=== PATIENT | female | born 1955 | race Caucasian/White ===

== ENCOUNTER 2017-03-23 14:34 | Emergency (ER) | payer MEDICARE ==
[2017-03-23 16:59] LABS: Hematocrit 41 % (35-47); Hemoglobin 13.5 g/dl (12.0-16.0); Mean Corpuscular HGB Conc 33 g/dl (31-36); Mean Corpuscular Hemoglobin 33 pg (27-31); Mean Corpuscular Volume 100 fL (80-97); Mean Platelet Volume 8 um3 (7.4-10.4); Red Cell Distribution Width 13 % (10.5-15); White Blood Count 8.8 10^3/ul (3.5-10.8)
[2017-03-23 17:24] LABS: Troponin I 0.01 ng/mL (<0.04)
--- NOTE | 2017-03-23 18:14 | ED ---
Danielle Fischer Edward, scribed for Alannah Edwards MD on 03/23/17 at 1545 . HPI Chest Pain - HPI Summary HPI Summary: 61 y/o female presents to the ED c/o pain between the shoulder blades starting 2 days ago. The pain is rated at 3/10 now; at its worst two nights ago it was a "50/10". The pain is aggravated with pressure but not with movement. Three days ago the patient states there was R hand pain after she was clippers. There was also mild CP this morning. Associated sx:. PMHx HLD and endocarditis. FHx HLD, no ID's before 55. Lives with partner. No EtOH, former smoker (quit 3 years ago) . - History of Current Complaint Chief Complaint: EDChestPainROMI Time Seen by Provider: 03/23/17 15:38 Hx Obtained From: Patient Onset/Duration: Started Days Ago - 2 days ago, Still Present Initial Severity: Severe Current Severity: Mild Pain Intensity: 2 Pain Scale Used: 0-10 Numeric Aggravating Factor(s): Other: - Pressure Associated Signs and Symptoms: Positive: Chest Pain - Mild, Other: - Pain between shoulders, pain in R hand - Allergy/Home Medications Allergies/Adverse Reactions: Allergies Allergy/AdvReac Type Severity Reaction Status Date / Time Codeine Allergy Unknown Verified 11/02/15 14:21 Reaction Details Diazepam [From Valium] Allergy Unknown Verified 11/02/15 14:21 Reaction Details Prednisone Allergy Unknown Verified 11/02/15 14:21 Reaction Details Propoxyphene [From Darvon] Allergy Unknown Verified 11/02/15 14:21 Reaction Details PMH/Surg Hx/FS Hx/Imm Hx Previously Healthy: No Endocrine/Hematology History: Reports: Other Endocrine/Hematological Disorders - HLD Cardiovascular History: Reports: Other Cardiovascular Problems/Disorders - Endocarditis Infectious Disease History: Denies: Traveled Outside the [place] in Last 30 Days - Family History Known Family History: Positive: Other - HLD Negative: Cardiac Disease - No ID - Social History Lives: With Family Alcohol Use: None Hx Substance Use: No Substance Use Type: Reports: None Hx Tobacco Use: Yes Smoking Status (MU): Former Smoker - Quit 3 years ago Review of Systems Constitutional: Negative Eyes: Negative ENT: Negative Positive: Chest Pain, Other - Pain between shoulder blades Respiratory: Negative Gastrointestinal: Negative Genitourinary: Negative Musculoskeletal: Other - Pain in R hand Skin: Negative Neurological: Negative Psychological: Normal All Other Systems Reviewed And Are Negative: Yes Physical Exam Triage Information Reviewed: Yes Vital Signs On Initial Exam: Initial Vitals Temp Pulse Resp BP Pulse Ox 97.2 F 71 16 156/81 100 03/23/17 15:20 03/23/17 15:20 03/23/17 15:20 03/23/17 15:20 03/23/17 15:20 Vital Signs Reviewed: Yes Appearance: Positive: Well-Appearing, No Pain Distress Skin: Positive: Warm, Skin Color Reflects Adequate Perfusion, Dry Eyes: Positive: EOMI, [place] ENT: Positive: Pharynx normal, TMs normal Neck: Positive: Supple, Nontender Respiratory/Lung Sounds: Positive: Clear to Auscultation, Breath Sounds Present. Negative: Rales, Rhonchi, Wheezes Cardiovascular: Positive: RRR, Other - No gallop. Negative: Murmur, Rub Abdomen Description: Positive: Nontender, Soft, Other: - No rebound. Negative: Distended, Guarding Bowel Sounds: Positive: Present Musculoskeletal: Positive: Strength/ROM Intact. Negative: Edema Left, Edema Right Neurological: Positive: Sensory/Motor Intact, Alert, Oriented to Person Place, Time, CN Intact II-III Psychiatric: Positive: Affect/Mood Appropriate Diagnostics - Vital Signs Vital Signs Temp Pulse Resp BP Pulse Ox 03/23/17 15:20 97.2 F 71 16 156/81 100 - Laboratory Lab Results: Lab Results 03/23/17 03/23/17 03/23/17 Range/Units 16:45 16:45 16:45 WBC 8.8 (3.5-10.8) 10^3/ul RBC 4.10 (4.0-5.4) 10^6/ul Hgb 13.5 (12.0-16.0) g/dl Hct 41 (35-47) % MCV 100 H (80-97) fL MCH 33 H (27-31) pg MCHC 33 (31-36) g/dl RDW 13 (10.5-15) % Plt Count 250 (150-450) 10^3/ul MPV 8 (7.4-10.4) um3 Neut % (Auto) 77.8 (38-83) % Lymph % (Auto) 17.1 L (25-47) % Gray % (Auto) 4.1 (1-9) % Eos % (Auto) 0.4 (0-6) % Baso % (Auto) 0.6 (0-2) % Absolute Neuts (auto) 6.8 (1.5-7.7) 10^3/ul Absolute Lymphs (auto) 1.5 (1.0-4.8) 10^3/ul Absolute Monos (auto) 0.4 (0-0.8) 10^3/ul Absolute Eos (auto) 0 (0-0.6) 10^3/ul Absolute Basos (auto) 0 (0-0.2) 10^3/ul Absolute Nucleated RBC 0.01 10^3/ul Nucleated RBC % 0.1 Sodium Pending Potassium Pending Chloride Pending Carbon Dioxide Pending Anion Gap Pending BUN Pending Creatinine Pending Est GFR ( Amer) Pending Est GFR (Non-Af Amer) Pending BUN/Creatinine Ratio Pending Glucose Pending Lactic Acid 0.7 (0.5-2.0) mmol/L Calcium Pending Total Bilirubin Pending AST Pending ALT Pending Alkaline Phosphatase Pending Troponin I 0.01 (<0.04) ng/mL Total Protein Pending Albumin Pending Globulin Pending Albumin/Globulin Ratio Pending Result Diagrams: 03/23/17 16:45 03/23/17 16:45 Lab Statement: Any lab studies that have been ordered have been reviewed, and results considered in the medical decision making process. - EKG 1 EKG Rhythm: Sinus Rhythm - @ 66 bpm EKG Interpretation: 15:47 - normal EKG Chest Pain Course/Dx - Course Course Of Treatment: 61 yo female with valvular dz, and remote history of endocarditis here with cp radiating to the back since sat, with the worst pain overnight. Pt is awaiting her chemistry for a troponin and her CTA chest /abd/ pelvis. If these are neg she will be discharged home with the diagnosis of cp - Diagnoses Provider Diagnoses: Chest pain Discharge - Discharge Plan Condition: Stable Disposition: OTHER Discharge Disposition Comment: to be determined by Dr. Diaz The documentation as recorded by the Danielle will Edward accurately reflects the service I personally performed and the decisions made by , Alannah Edwards MD.
[2017-03-23 18:43] LABS: Albumin 4.6 g/dL (3.2-5.2); BUN/Creatinine Ratio 15.5 (8-20); Calcium 9.7 mg/dL (8.6-10.3); EGFR African American 65.4 (>60); EGFR Non-African American 50.8 (>60); Globulin 3.1 g/dL (2-4); Total Protein 7.7 g/dL (6.4-8.9)
[2017-03-23 18:44] LABS: Total Bilirubin 0.4 mg/dL (0.2-1.0)
[2017-03-23] MEDS ORDERED: Iodixanol* (CONTRAST) 320 MG/ML 100 ML SDV IV ONE (18:49)
--- NOTE | 2017-03-23 19:20 | RAD ---
INDICATION: Chest pain radiating to back. Evaluate for aortic dissection COMPARISON: CTA chest March 04, 2009 TECHNIQUE: Axial source images were obtained from the thoracic inlet to the symphysis pubis following administration of 100 mL Visipaque [address] angiographic technique was utilized to evaluate for aortic dissection. Coronal and sagittal reconstructed images were acquired. CHEST FINDINGS: Neck/thyroid: The visualized neck to include the thyroid appear normal. Chest wall: There are no acute abnormalities of the bony thorax or chest wall. There is no supraclavicular, infraclavicular, or axillary lymphadenopathy. Lungs : There are no pulmonary masses. There is linear change in the right middle lobe most consistent with atelectasis. The pulmonary interstitium appears normal. There are no endobronchial lesions. Cardiomediastinal structures: The heart is normal in size. There is no pericardial effusion. There is no evidence of thoracic aortic aneurysm or dissection. There is a small ductus diverticulum appearing unchanged from the 2009 examination. There is a normal CT angiographic appearance of the great vessels arising from the arch The pulmonary vessels appear normal. There is no mediastinal or hilar adenopathy. The esophagus appears normal. Pleura : There are no pleural-based masses or effusions. ABDOMINAL/PELVIC FINDINGS: Liver: The liver is normal in size. There are no masses on early arterial phase enhancement. There is no ductal dilatation. Gallbladder: There are no calcified gallstones. There is no evidence of wall thickening or pericholecystic fluid. Spleen: The spleen is normal in size. There are no masses identified on early arterial phase enhancement. Pancreas: There is no evidence of pancreatic mass or ductal dilatation. Adrenal glands: There is no evidence of adrenal mass. Kidneys: The kidneys are normal in size and position. There are prompt nephrograms and there is prompt excretion bilaterally. There are no renal parenchymal masses. There is no evidence of nephrolithiasis. Adenopathy: There is no evidence of adenopathy by size criteria. Fluid collections: There are no free or localized fluid collections. Abdominal aorta: There is no evidence of abdominal aortic aneurysm or dissection. The visceral branches of the aorta appear normal. There are single renal arteries. The iliac vessels are widely patent. There is minor intimal calcifications involving the iliac vessels. GI tract: Noncontrast CT appearance the bowel is unremarkable. There is no evidence of obstruction Pelvic organs: There is presumed hysterectomy. There is no adnexal mass. Bladder: There are no bladder masses. Abdominal and pelvic soft tissues: The extraperitoneal abdominal and pelvic soft tissues appear normal.. Osseous structures: There are no acute osseous findings. IMPRESSION: NO CT ANGIOGRAPHIC ABNORMALITIES.
[2017-03-23 20:15] LABS: Anion Gap 13 mmol/L (2-11); EGFR Non-African American 56.7 (>60); Manual Entry Verification MD; POC CO2 Carbon Dioxide 24 mmol/L (24-29); POC Chloride 104 mmol/L (98-109); POC Glucose 93 mg/dL (70-105); POC Potassium 3.7 mmol/L (3.5-4.9); POC Sodium 141 mmol/L (138-146)
[2017-03-23 21:28] VITALS: BP 151/69
[2017-03-23 22:21] LABS: Potassium 4.2 mmol/L (3.5-5.0)
== END 2017-03-23 21:28 ==
LOC: ED 14:34
DX: R07.9 Chest pain, unspecified (principal); Z87.891 Personal history of nicotine dependence
CPT/HCPCS: 36415; 71275; 74174; 80048; 80053; 83605; 84484; 85025; 93005; 99282; Q9967

== ENCOUNTER 2017-07-22 06:01 | Emergency (ER) | payer MEDICARE ==
[2017-07-22] MEDS ORDERED: NS 0.9% 1000 ML* 1,000 ML IV ONE (06:28)
[2017-07-22 06:52] LABS: Hematocrit 39 % (35-47); Hemoglobin 13.3 g/dl (12.0-16.0); Mean Corpuscular HGB Conc 34 g/dl (31-36); Mean Corpuscular Hemoglobin 33 pg (27-31); Mean Corpuscular Volume 97 fL (80-97); Mean Platelet Volume 8 um3 (7.4-10.4); Red Blood Count 4.01 10^6/ul (4.0-5.4); Red Cell Distribution Width 13 % (10.5-15); White Blood Count 10.4 10^3/ul (3.5-10.8)
[2017-07-22 07:07] LABS: Albumin 4.4 g/dL (3.2-5.2); BUN/Creatinine Ratio 11.2 (8-20); Calcium 10.2 mg/dL (8.6-10.3); EGFR African American 74.7 (>60); EGFR Non-African American 58.1 (>60); Globulin 2.9 g/dL (2-4); Potassium 3.6 mmol/L (3.5-5.0); Total Bilirubin 0.6 mg/dL (0.2-1.0); Total Protein 7.3 g/dL (6.4-8.9)
[2017-07-22] MEDS ORDERED: Ondansetron INJ* 2 MG/ML VIAL IV ONE (07:27)
[2017-07-22] MEDS ORDERED: Pantoprazole IV* 40 MG IV ONE (07:28)
[2017-07-22 07:49] VITALS: BP 111/74
[2017-07-22 08:15] LABS: Urine Bacteria 1+ (Absent); Urine Bilirubin Negative (Negative); Urine Glucose Negative (Negative); Urine Nitrite Negative (Negative)
--- NOTE | 2017-07-22 08:46 | ED ---
Tereso Fischer Benjamin, scribed for Gómez Bradshaw MD on 07/22/17 at 0731 . Abdominal Pain/Female - HPI Summary HPI Summary: 61yo female c/o diffuse abdominal pressure/discomfort and nausea for 3 days. Pt states that she hasnt been eating for 3 days because attempt to eat makes her nauseous. Pt was seen at 4 days ago and was dx with bronchitis there, which she was rxed with abx, but didnt start it yet. Hx of hysterectomy and hernia repair. - History of Current Complaint Chief Complaint: EDAbdPain Stated Complaint: NAUSEA Time Seen by Provider: 07/22/17 07:20 Hx Obtained From: Patient ?: No Onset/Duration: Gradual Onset, Lasting Days - 3 days, Still Present Timing: Constant Severity Initially: Moderate Severity Currently: Moderate Pain Intensity: 10 Pain Scale Used: 0-10 Numeric Location: Diffuse Radiates: No Character: Other: - pressure Aggravating Factor(s): Other: - sitting up Alleviating Factor(s): Nothing Associated Signs and Symptoms: Positive: Decreased Appetite, Nausea Allergies/Adverse Reactions: Allergies Allergy/AdvReac Type Severity Reaction Status Date / Time Codeine Allergy Unknown Verified 07/22/17 06:13 Reaction Details Diazepam [From Valium] Allergy Unknown Verified 07/22/17 06:13 Reaction Details Prednisone Allergy Unknown Verified 07/22/17 06:13 Reaction Details Propoxyphene [From Darvon] Allergy Unknown Verified 07/22/17 06:13 Reaction Details PMH/Surg Hx/FS Hx/Imm Hx Endocrine/Hematology History: Reports: Other Endocrine/Hematological Disorders - HLD Cardiovascular History: Reports: Other Cardiovascular Problems/Disorders - Endocarditis - Immunization History Date of Influenza Vaccine: has not received Infectious Disease History: No Infectious Disease History: Denies: Traveled Outside the US in Last 30 Days - Family History Known Family History: Positive: Other - HLD Negative: Cardiac Disease - No [place] - Social History Alcohol Use: None Hx Substance Use: No Substance Use Type: Reports: None Hx Tobacco Use: Yes Smoking Status (MU): Light Every Day Tobacco Smoker Review of Systems Constitutional: Negative Negative: Fever Eyes: Negative ENT: Negative Cardiovascular: Negative Negative: Chest Pain Respiratory: Negative Negative: Shortness Of Breath Positive: Abdominal Pain - diffuse mild pressure/discomfort, Nausea, Other - decreased appetite Genitourinary: Negative Musculoskeletal: Negative Skin: Negative Neurological: Negative Psychological: Normal All Other Systems Reviewed And Are Negative: Yes Physical Exam - Summary Physical Exam Summary: VITAL SIGNS: Reviewed. GENERAL: Patient is a well-developed and nourished FEMALE who is lying comfortable in the stretcher. Patient is not in any acute respiratory distress. HEAD AND FACE: No signs of trauma. No ecchymosis, hematomas or skull depressions. No sinus tenderness. EYES: PERRLA, EOMI x 2, No injected conjunctiva, no nystagmus. EARS: Hearing grossly intact. Ear canals and tympanic membranes are within normal limits. MOUTH: Oropharynx within normal limits. NECK: Supple, trachea is midline, no adenopathy, no JVD, no carotid bruit, no c- spine tenderness, neck with full ROM. CHEST: Symmetric, no tenderness at palpation LUNGS: Clear to auscultation bilaterally. No wheezing or crackles. CVS: Regular rate and rhythm, S1 and S2 present, no murmurs or gallops appreciated. ABDOMEN: Soft, non-tender. No signs of distention. No rebound no guarding, and no masses palpated. Bowel sounds are normal. EXTREMITIES: FROM in all major joints, no edema, no cyanosis or clubbing. NEURO: Alert and oriented x 3. No acute neurological deficits. Speech is normal and follows commands. SKIN: Dry and warm Triage Information Reviewed: Yes Vital Signs On Initial Exam: Initial Vitals Temp Pulse Resp BP Pulse Ox 98.7 F 94 16 142/77 99 07/22/17 06:05 07/22/17 06:05 07/22/17 06:05 07/22/17 06:05 07/22/17 06:05 Vital Signs Reviewed: Yes Diagnostics - Vital Signs Vital Signs Temp Pulse Resp BP Pulse Ox 07/22/17 07:00 69 115/66 97 07/22/17 06:29 82 95 07/22/17 06:25 129/77 07/22/17 06:05 98.7 F 94 16 142/77 99 - Laboratory Lab Results: Lab Results 07/22/17 07/22/17 07/22/17 Range/Units 06:35 06:35 06:35 WBC 10.4 (3.5-10.8) 10^3/ul RBC 4.01 (4.0-5.4) 10^6/ul Hgb 13.3 (12.0-16.0) g/dl Hct 39 (35-47) % MCV 97 (80-97) fL MCH 33 H (27-31) pg MCHC 34 (31-36) g/dl RDW 13 (10.5-15) % Plt Count 281 (150-450) 10^3/ul MPV 8 (7.4-10.4) um3 Neut % (Auto) 84.1 H (38-83) % Lymph % (Auto) 11.5 L (25-47) % Meagher % (Auto) 3.3 (1-9) % Eos % (Auto) 0.2 (0-6) % Baso % (Auto) 0.9 (0-2) % Absolute Neuts (auto) 8.8 H (1.5-7.7) 10^3/ul Absolute Lymphs (auto) 1.2 (1.0-4.8) 10^3/ul Absolute Monos (auto) 0.3 (0-0.8) 10^3/ul Absolute Eos (auto) 0 (0-0.6) 10^3/ul Absolute Basos (auto) 0.1 (0-0.2) 10^3/ul Absolute Nucleated RBC 0 10^3/ul Nucleated RBC % 0 INR (Anticoag Therapy) 0.94 (0.89-1.11) APTT 30.0 (26.0-36.3) seconds Sodium 138 (133-145) mmol/L Potassium 3.6 (3.5-5.0) mmol/L Chloride 104 (101-111) mmol/L Carbon Dioxide 24 (22-32) mmol/L Anion Gap 10 (2-11) mmol/L BUN 11 (6-24) mg/dL Creatinine 0.98 H (0.51-0.95) mg/dL Est GFR ( Amer) 74.7 (>60) Est GFR (Non-Af Amer) 58.1 (>60) BUN/Creatinine Ratio 11.2 (8-20) Glucose 123 H (70-100) mg/dL Calcium 10.2 (8.6-10.3) mg/dL Total Bilirubin 0.60 (0.2-1.0) mg/dL AST 24 (13-39) U/L ALT 20 (7-52) U/L Alkaline Phosphatase 48 (34-104) U/L Troponin I 0.00 (<0.04) ng/mL Total Protein 7.3 (6.4-8.9) g/dL Albumin 4.4 (3.2-5.2) g/dL Globulin 2.9 (2-4) g/dL Albumin/Globulin Ratio 1.5 (1-3) Lipase 15 (11.0-82.0) U/L Result Diagrams: 07/22/17 06:35 07/22/17 06:35 Lab Statement: Any lab studies that have been ordered have been reviewed, and results considered in the medical decision making process. Abdominal Pain Fem Course/Dx - Course Course Of Treatment: 61yo female c/o diffuse abdominal pressure/discomfort and nausea for 3 days. Pt states that she hasnt been eating for 3 days because attempt to eat makes her nauseous. Pt was seen at 4 days ago and was dx with bronchitis there, which she was rxed with abx, but didnt start it yet. Hx of hysterectomy and hernia repair. Pt has an unremarkable exam and blood work. Pt most likely has a viral illness and will treat her symptomatically. - Diagnoses Provider Diagnoses: Nausea, Viral syndrome Discharge - Discharge Plan Condition: Stable Disposition: HOME Prescriptions: Metoclopramide TAB* [Reglan TAB*] 10 mg PO Q6H PRN #20 tab PRN Reason: Nausea/Vomiting Patient Education Materials: Acute Nausea and Vomiting (ED), Viral Syndrome (ED ) Referrals: Peyman Giang MD [Primary Care Provider] - (Please follow up with your doctor in 1-3 days. ) Additional Instructions: Increased oral fluid intake. Home rest until your symptoms resolve. The documentation as recorded by the Tereso will Benjamin accurately reflects the service I personally performed and the decisions made by me, Gómez Bradshaw MD.
== END 2017-07-22 08:29 | disposition home or self-care (01) ==
LOC: ED 06:01
DX: B34.9 Viral infection, unspecified (principal); R11.0 Nausea
CPT/HCPCS: 36415; 80053; 81003; 81015; 83690; 84484; 85025; 85610; 85730; 87086; 96374; 96375; 99282; J2405

== ENCOUNTER 2017-09-01 09:31 | Emergency (ER) | payer MEDICARE ==
[2017-09-01] MEDS ORDERED: Ondansetron ODT TAB* 4 MG PO ONE (09:49)
[2017-09-01] MEDS ORDERED: DOXYcycline CAP(*) 100 MG PO ONE (09:49)
[2017-09-01 10:10] LABS: ABS Basophils 0.1 10^3/ul (0-0.2); ABS Eosinophils 0.1 10^3/ul (0-0.6); ABS Lymphocytes 1.2 10^3/ul (1.0-4.8); ABS Monocytes 0.3 10^3/ul (0-0.8); ABS Neutrophils 4.2 10^3/ul (1.5-7.7); ABS Nucleated RBC 0 10^3/ul; Eosinophil % 1.5 % (0-6); Hematocrit 40 % (35-47); Hemoglobin 13.7 g/dl (12.0-16.0); Lymphocyte % 20.7 % (25-47); Mean Corpuscular HGB Conc 34 g/dl (31-36); Mean Corpuscular Hemoglobin 34 pg (27-31); Mean Corpuscular Volume 98 fL (80-97); Mean Platelet Volume 8 um3 (7.4-10.4); Nucleated Red Blood Cells % 0; Platelet Count 276 10^3/ul (150-450); Red Blood Count 4.08 10^6/ul (4.0-5.4); Red Cell Distribution Width 13 % (10.5-15); White Blood Count 5.8 10^3/ul (3.5-10.8)
[2017-09-01 10:22] LABS: EGFR Non-African American 60.7 (>60)
--- NOTE | 2017-09-01 10:36 | ED ---
Liu Fischer Angela, scribed for Adolph Camarillo MD on 09/01/17 at 0950 . Skin Complaint - HPI Summary HPI Summary: This pt is a 62 y/o female presenting [facility] c/o erythematous and raised areas on the left calf. Pt reports that 2 days ago she was sitting down when "something" bit her. She notes these areas were pruritic all night. Today pt c/ o pruritic erythematous areas and pain, generalized weakness. Pt went to see her PCP at [facility] and was given Augmentin and mupirocin ointment 2% with no relief. Allergies include to prednisone and valium. - History of Current Complaint Chief Complaint: EDGeneral Stated Complaint: BUG BITE ON LEG Hx Obtained From: Patient Onset/Duration: Started Days Ago, Still Present Skin Exposure Onset/Duration: Days Ago Timing: Lasting Days Current Severity: Moderate Pain Intensity: 6 Pain Scale Used: 0-10 Numeric Skin Location: Leg - left Character: Swelling, Pruritus, Pain, Redness, Painful Aggravating Symptom(s): Nothing Alleviating Symptom(s): Nothing Associated Signs & Symptoms: Tenderness - Allergy/Home Medications Allergies/Adverse Reactions: Allergies Allergy/AdvReac Type Severity Reaction Status Date / Time Codeine Allergy Unknown Verified 07/22/17 06:13 Reaction Details Diazepam [From Valium] Allergy Unknown Verified 07/22/17 06:13 Reaction Details Prednisone Allergy Unknown Verified 07/22/17 06:13 Reaction Details Propoxyphene [From Darvon] Allergy Unknown Verified 07/22/17 06:13 Reaction Details PMH/Surg Hx/FS Hx/Imm Hx Endocrine/Hematology History: Reports: Other Endocrine/Hematological Disorders - HLD Cardiovascular History: Reports: Other Cardiovascular Problems/Disorders - Endocarditis - Immunization History Date of Influenza Vaccine: has not received Infectious Disease History: No Infectious Disease History: Denies: Traveled Outside the US in Last 30 Days - Family History Known Family History: Positive: Other - HLD Negative: Cardiac Disease - No [place] - Social History Alcohol Use: None Hx Substance Use: No Substance Use Type: Reports: None Hx Tobacco Use: Yes Smoking Status (MU): Light Every Day Tobacco Smoker Review of Systems Negative: Fever, Chills Skin: Other - erythematous areas Positive: Weakness - generalized All Other Systems Reviewed And Are Negative: Yes Physical Exam - Summary Physical Exam Summary: Appearance: Well-appearing, Well-nourished. No acute distress. Skin: Warm. 3 distinct round areas of induration with surrounding erythema. Mild tenderness to palpation. No petechiae. Eyes: Normal ENT: Normal. Moist mucous membranes. Neck: Supple, nontender Respiratory: Clear to auscultation Cardiovascular: Normal Abdomen: Soft, nontender Bowel: Present Musculoskeletal: Normal, Strength/ROM Intact. Normal ROM. Normal strength and sensation in LE bilaterally. Distal neurovascular intact. No calf tenderness. Neurological: Normal, A&Ox3 Psychiatric: Normal Triage Information Reviewed: Yes Vital Signs On Initial Exam: Initial Vitals Temp Pulse Resp BP Pulse Ox 98.9 F 124 18 123/84 97 09/01/17 09:33 09/01/17 09:33 09/01/17 09:33 09/01/17 09:33 09/01/17 09:33 Vital Signs Reviewed: Yes Diagnostics - Vital Signs Vital Signs Temp Pulse Resp BP Pulse Ox 09/01/17 09:33 98.9 F 124 18 123/84 97 - Laboratory Lab Results: Lab Results 09/01/17 09/01/17 Range/Units 10:00 10:00 WBC 5.8 (3.5-10.8) 10^3/ul RBC 4.08 (4.0-5.4) 10^6/ul Hgb 13.7 (12.0-16.0) g/dl Hct 40 (35-47) % MCV 98 H (80-97) fL MCH 34 H (27-31) pg MCHC 34 (31-36) g/dl RDW 13 (10.5-15) % Plt Count 276 (150-450) 10^3/ul MPV 8 (7.4-10.4) um3 Neut % (Auto) 71.7 (38-83) % Lymph % (Auto) 20.7 L (25-47) % [place]oup % (Auto) 4.8 (1-9) % Eos % (Auto) 1.5 (0-6) % Baso % (Auto) 1.3 (0-2) % Absolute Neuts (auto) 4.2 (1.5-7.7) 10^3/ul Absolute Lymphs (auto) 1.2 (1.0-4.8) 10^3/ul Absolute Monos (auto) 0.3 (0-0.8) 10^3/ul Absolute Eos (auto) 0.1 (0-0.6) 10^3/ul Absolute Basos (auto) 0.1 (0-0.2) 10^3/ul Absolute Nucleated RBC 0 10^3/ul Nucleated RBC % 0 Sodium 138 (133-145) mmol/L Potassium 3.8 (3.5-5.0) mmol/L Chloride 104 (101-111) mmol/L Carbon Dioxide 27 (22-32) mmol/L Anion Gap 7 (2-11) mmol/L BUN 13 (6-24) mg/dL Creatinine 0.94 (0.51-0.95) mg/dL Est GFR ( Amer) 78.1 (>60) Est GFR (Non-Af Amer) 60.7 (>60) BUN/Creatinine Ratio 13.8 (8-20) Glucose 152 H (70-100) mg/dL Calcium 10.1 (8.6-10.3) mg/dL Result Diagrams: 09/01/17 10:00 09/01/17 10:00 Lab Statement: Any lab studies that have been ordered have been reviewed, and results considered in the medical decision making process. Course/Dx - Course Assessment/Plan: in no acute distress, h+p consistnet with likely mild cellulitis after insect bite/rash. prescribed alternative antibiotic as pt is not tolerating augmentin as prescribed by pmd. I also prescribed zofran to help med tolerance. agrees to and understnads dc instructions. - Diagnoses Provider Diagnoses: Cellulitis Discharge - Discharge Plan Condition: Stable Disposition: HOME Prescriptions: DOXYcycline CAP(*) [DOXYcycline 100MG CAP(*)] 100 mg PO BID #14 cap Ondansetron ODT TAB* [Zofran 4 MG Odt TAB*] 4 mg PO Q6H PRN #12 tab.odt PRN Reason: Nausea Referrals: Peyman Giang MD [Primary Care Provider] - Additional Instructions: PLEASE TAKE MEDICATIONS DIRECTED. PLEASE RETURN IMMEDIATELY TO THE ER IF YOU HAVE ANY WORSENING OR CONCERNING SYMPTOMS PLEASE MAKE AN APPOINTMENT TO BE SEEN BY YOUR PRIMARY CARE DOCTOR WITHIN 1 WEEK The documentation as recorded by the Liu will Angela accurately reflects the service I personally performed and the decisions made by me, Adolph Camarillo MD.
[2017-09-01 11:01] VITALS: BP 127/90
== END 2017-09-01 10:59 | disposition home or self-care (01) ==
LOC: ED 09:31
DX: L03.116 Cellulitis of left lower limb (principal); F17.200 Nicotine dependence, unspecified, uncomplicated; Z88.5 Allergy status to narcotic agent; Z88.8 Allergy status to other drugs, medicaments and biological substances
CPT/HCPCS: 36415; 80048; 85025; 99282; A9270-GY

== ENCOUNTER 2017-11-06 10:01 | Emergency (ER) | payer MEDICARE ==
[2017-11-06] MEDS ORDERED: Ketorolac INJ* 30 MG/ML 1 ML VIAL IV ONE (12:18)
--- NOTE | 2017-11-06 12:44 | RAD ---
INDICATION: Interscapular pain. COMPARISON: Comparison is made with a prior chest x-ray study from March 04, 2009. TECHNIQUE: A portable view of the chest was obtained. FINDINGS: The heart is within normal limits in size. The thoracic aorta appears mildly tortuous and ectatic. There is no change from the prior study. The lungs are clear. No pleural effusion or pneumothorax is seen. IMPRESSION: NO EVIDENCE FOR ACUTE DISEASE.
[2017-11-06 13:08] LABS: INR 0.92 (0.77-1.02)
[2017-11-06 13:09] LABS: ABS Basophils 0 10^3/ul (0-0.2); ABS Eosinophils 0 10^3/ul (0-0.6); ABS Lymphocytes 1.3 10^3/ul (1.0-4.8); ABS Monocytes 0.2 10^3/ul (0-0.8); ABS Neutrophils 4.7 10^3/ul (1.5-7.7); ABS Nucleated RBC 0 10^3/ul; Eosinophil % 0.2 % (0-6); Hematocrit 41 % (35-47); Hemoglobin 14.1 g/dl (12.0-16.0); Lymphocyte % 20.1 % (25-47); Mean Corpuscular HGB Conc 35 g/dl (31-36); Mean Corpuscular Hemoglobin 33 pg (27-31); Mean Corpuscular Volume 97 fL (80-97); Mean Platelet Volume 8 um3 (7.4-10.4); Nucleated Red Blood Cells % 0.1; Platelet Count 271 10^3/ul (150-450); Red Blood Count 4.21 10^6/ul (4.0-5.4); Red Cell Distribution Width 13 % (10.5-15); White Blood Count 6.2 10^3/ul (3.5-10.8)
[2017-11-06 13:15] LABS: EGFR Non-African American 65.5 (>60)
--- NOTE | 2017-11-06 13:25 | RAD ---
Indication: Rheumatoid arthritis, intrascapular numbness and pain. CT of the thoracic spine was obtained in the axial plane. Sagittal and coronal reconstructed images were obtained. There is a predominantly levoscoliosis centered at T5. Otherwise the vertebral bodies appear normal in height. Disc spaces all well-preserved. No obvious protrusion is noted. No fracture is noted. No evidence of spinal canal compromise is noted. No rib fractures are noted. The visualized lung rangel are grossly unremarkable. IMPRESSION: Levoscoliosis centered at T5. No fracture or abnormal erosions are noted in the thoracic spine. No spinal canal compromise is noted.
--- NOTE | 2017-11-06 13:26 | RAD ---
INDICATION: Interscapular pain numbness left leg, history of rheumatoid arthritis. COMPARISON: Correlation is made with a prior MRI of the cervical spine from August 04, 2005. TECHNIQUE: Contiguous axial sections were obtained from the skull base through the T2 vertebra. Images were reconstructed in the sagittal and coronal planes. FINDINGS: There is straightening and reversal of the normal cervical lordosis. In addition there is a cervical scoliosis convex toward the right side. No prevertebral soft tissue swelling or fracture is seen. 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 At the C3-C4 level there is disc space narrowing and mild posterior uncinate process spurring. There are hypertrophic changes within the left facet joint. There is mild canal narrowing is present. There is mild to moderate neural foraminal narrowing on the left side. At the C4-C5 level there is mild posterior uncinate process spurring. There is moderate spinal canal narrowing and mild bilateral neural foraminal narrowing. At the C5-C6 level there is mild to moderate posterior uncinate process spurring. There is moderate spinal canal narrowing and moderate bilateral neural foraminal narrowing. At the C6-C7 level there is mild posterior uncinate process spurring. There is mild to moderate spinal canal narrowing and moderate neural foraminal narrowing on the right side and mild neural foraminal narrowing on the left side. Images of the lung apices demonstrate mild to moderate centrilobular emphysematous change. IMPRESSION: 1. STRAIGHTENING AND REVERSAL OF THE NORMAL CERVICAL LORDOSIS. 2. MODERATE CERVICAL SPONDYLOSIS. IF THE PATIENT'S SYMPTOMS PERSIST CONSIDER MR IMAGING FOR FURTHER EVALUATION.
--- NOTE | 2017-11-06 13:30 | RAD ---
Indication: Back pain. Left leg numbness. CT of the lumbar spine was obtained in the axial plane. Sagittal and coronal reconstructed images were obtained. The vertebral bodies appear normal in height. No compression fracture is noted. At L5-S1 there is minimal broad-based protrusion flattening the thecal sac. Mild facet arthropathy is noted. No central foraminal stenosis is noted. At L4-L5 there is degenerative disc disease with broad-based protrusion flattening the thecal sac. No foraminal stenosis is noted. At L1-L2, L2-L3 and L3-L4 the disc is preserved in height and signal. No retroperitoneal lymphadenopathy is noted. IMPRESSION: At L4-L5 broad-based protrusion flattens the thecal sac. Moderate facet and ligamentous hypertrophy is noted. Minimal degenerative disc disease at L5-S1.
[2017-11-06 14:23] VITALS: BP 154/84
--- NOTE | 2017-11-07 05:19 | ED ---
Jazmine Fischer Jason, scribed for Bailey Barnes MD on 11/06/17 at 1021 . Neck Pain - HPI Summary HPI Summary: This patient is a 62 year old F presenting to [facility] with a chief complaint of burning neck pain since last night. The patient states for the last 2 days my shoulder blade has been hurting and I began to experience burning neck pain. My left leg goes to sleep and feels funny at times too. At home I cant sit on my recliner due to my shoulder blade pain. Every once in a while I will get a dizzy spell and it will go away. The pt has a history of rheumatoid arthritis, HLD, and endocarditis. The patient rates the pain 9/10 in severity. Symptoms aggravated by nothing. Symptoms alleviated by nothing. Patient reports headache , and posterior left leg numbness. Patient denies CP, SOB, and visual symptoms. Patient takes Lipitor for HLD and admits to "smoking tobacco regularly." Dr. Giang is her primary care provider and Dr. Temple is her Glassie. - History of Current Complaint Chief Complaint: EDNeckComplaint Stated Complaint: LT LEG PAIN Time Seen by Provider: 11/06/17 10:13 Hx Obtained From: Patient Onset/Duration Of Injury/Symptoms: Days - 2 Mechanism Of Injury: No Known Trauma Timing: Constant Onset/Duration: Gradual Onset, Started days ago - since last night, Still Present Severity Initially: Moderate Severity Currently: Severe Pain Intensity: 9 Pain Scale Used: 0-10 Numeric Location: Discrete At: - interscapular and base of neck; also left leg numbness from buttock to post left knee Character: Burning, Other: - numbness left knee Aggravating Factors: Nothing Alleviating Factors: Nothing Associated Signs & Symptoms: Positive: Negative Related History: Other - hx rheumatoid arthritis on no regular medication including tylenol or ibuprofen - Allergies/Home Medications Allergies/Adverse Reactions: Allergies Allergy/AdvReac Type Severity Reaction Status Date / Time codeine Allergy Unknown Verified 11/06/17 10:07 Reaction Details diazepam [From Valium] Allergy Unknown Verified 11/06/17 10:07 Reaction Details prednisone Allergy Unknown Verified 11/06/17 10:07 Reaction Details propoxyphene [From Darvon] Allergy Unknown Verified 11/06/17 10:07 Reaction Details PMH/Surg Hx/FS Hx/Imm Hx Previously Healthy: No Cardiovascular History: Reports: Hx Hypercholesterolemia, Other Cardiovascular Problems/Disorders - Endocarditis as a teenager Musculoskeletal History: Reports: Hx Rheumatoid Arthritis - Immunization History Date of Influenza Vaccine: has not received Infectious Disease History: No Infectious Disease History: Denies: Traveled Outside the [place] in Last 30 Days - Family History Known Family History: Positive: Other - HLD Negative: Cardiac Disease - No [place] - Social History Lives: Alone Alcohol Use: None Hx Substance Use: No Substance Use Type: Reports: None Hx Tobacco Use: Yes Smoking Status (MU): Light Every Day Tobacco Smoker Review of Systems Constitutional: Negative Eyes: Negative - visual sx Negative: Chest Pain Negative: Shortness Of Breath Positive: Arthralgia, Other - Burning neck pain, shoulder blade pain Skin: Negative Positive: Headache, Numbness - left leg Psychological: Normal All Other Systems Reviewed And Are Negative: Yes Physical Exam - Summary Physical Exam Summary: Appearance: well-appearing, moderate pain distress, Well-nourished Skin: Warm, color reflects adequate perfusion Head: Normal Head/Face inspection Eyes: Conjunctiva clear ENT: Normal inspection Neck: Supple, no nodes, no JVD, tender lower C-spine to mid thoracic ( interscapular) spinous and paraspinous. No meningismus. Respiratory: Lungs clear, Normal breath sounds, no respiratory distress Cardio: RRR, No murmur, pulses normal, brisk capillary refill Abdomen: soft, nontender Bowel sounds: present Musculoskeletal: Strength Intact/ ROM intact. No calf tenderness. No edema. Indicates pain from lower neck to upper thoracic area, interscapular. Psychological: Normal Neuro Exam:A&O x3, CN II-XII intact, Motor function 5/5, Sensation intact, Knee and ankle reflexes 2+ symmetric, Triage Information Reviewed: Yes Vital Signs On Initial Exam: Initial Vitals Temp Pulse Resp BP Pulse Ox 98.6 F 102 14 159/89 98 11/06/17 10:07 11/06/17 10:07 11/06/17 10:07 11/06/17 10:07 11/06/17 10:07 Vital Signs Reviewed: Yes Diagnostics - Vital Signs Vital Signs Temp Pulse Resp BP Pulse Ox 11/06/17 10:07 98.6 F 102 14 159/89 98 - Laboratory Lab Results: Lab Results 11/06/17 11/06/17 11/06/17 Range/Units 12:35 12:35 12:35 WBC 6.2 (3.5-10.8) 10^3/ul RBC 4.21 (4.0-5.4) 10^6/ul Hgb 14.1 (12.0-16.0) g/dl Hct 41 (35-47) % MCV 97 (80-97) fL MCH 33 H (27-31) pg MCHC 35 (31-36) g/dl RDW 13 (10.5-15) % Plt Count 271 (150-450) 10^3/ul MPV 8 (7.4-10.4) um3 Neut % (Auto) 75.5 (38-83) % Lymph % (Auto) 20.1 L (25-47) % [place] % (Auto) 3.6 (0-7) % Eos % (Auto) 0.2 (0-6) % Baso % (Auto) 0.6 (0-2) % Absolute Neuts (auto) 4.7 (1.5-7.7) 10^3/ul Absolute Lymphs (auto) 1.3 (1.0-4.8) 10^3/ul Absolute Monos (auto) 0.2 (0-0.8) 10^3/ul Absolute Eos (auto) 0 (0-0.6) 10^3/ul Absolute Basos (auto) 0 (0-0.2) 10^3/ul Absolute Nucleated RBC 0 10^3/ul Nucleated RBC % 0.1 INR (Anticoag Therapy) (0.77-1.02) D-Dimer, Quantitative (Less Than 230) ng/mL Sodium 140 (133-145) mmol/L Potassium 4.1 (3.5-5.0) mmol/L Chloride 105 (101-111) mmol/L Carbon Dioxide 26 (22-32) mmol/L Anion Gap 9 (2-11) mmol/L BUN 12 (6-24) mg/dL Creatinine 0.88 (0.51-0.95) mg/dL Est GFR ( Amer) 84.3 (>60) Est GFR (Non-Af Amer) 65.5 (>60) BUN/Creatinine Ratio 13.6 (8-20) Glucose 100 (70-100) mg/dL Calcium 10.5 H (8.6-10.3) mg/dL Magnesium 2.0 (1.9-2.7) mg/dL Total Bilirubin 0.50 (0.2-1.0) mg/dL AST 19 (13-39) U/L ALT 15 (7-52) U/L Alkaline Phosphatase 51 (34-104) U/L Total Creatine Kinase 44 (10-223) U/L CK-MB (CK-2) 1.0 (0.6-6.3) ng/mL Troponin I 0.01 (<0.04) ng/mL B-Natriuretic Peptide 25 ( - 100) pg/mL Total Protein 8.3 (6.4-8.9) g/dL Albumin 5.0 (3.2-5.2) g/dL Globulin 3.3 (2-4) g/dL Albumin/Globulin Ratio 1.5 (1-3) /16/18 Range/Units 12:35 WBC (3.5-10.8) 10^3/ul RBC (4.0-5.4) 10^6/ul Hgb (12.0-16.0) g/dl Hct (35-47) % MCV (80-97) fL MCH (27-31) pg MCHC (31-36) g/dl RDW (10.5-15) % Plt Count (150-450) 10^3/ul MPV (7.4-10.4) um3 Neut % (Auto) (38-83) % Lymph % (Auto) (25-47) % [place] % (Auto) (0-7) % Eos % (Auto) (0-6) % Baso % (Auto) (0-2) % Absolute Neuts (auto) (1.5-7.7) 10^3/ul Absolute Lymphs (auto) (1.0-4.8) 10^3/ul Absolute Monos (auto) (0-0.8) 10^3/ul Absolute Eos (auto) (0-0.6) 10^3/ul Absolute Basos (auto) (0-0.2) 10^3/ul Absolute Nucleated RBC 10^3/ul Nucleated RBC % INR (Anticoag Therapy) 0.92 (0.77-1.02) D-Dimer, Quantitative < 200 (Less Than 230) ng/mL Sodium (133-145) mmol/L Potassium (3.5-5.0) mmol/L Chloride (101-111) mmol/L Carbon Dioxide (22-32) mmol/L Anion Gap (2-11) mmol/L BUN (6-24) mg/dL Creatinine (0.51-0.95) mg/dL Est GFR ( Amer) (>60) Est GFR (Non-Af Amer) (>60) BUN/Creatinine Ratio (8-20) Glucose (70-100) mg/dL Calcium (8.6-10.3) mg/dL Magnesium (1.9-2.7) mg/dL Total Bilirubin (0.2-1.0) mg/dL AST (13-39) U/L ALT (7-52) U/L Alkaline Phosphatase (34-104) U/L Total Creatine Kinase (10-223) U/L CK-MB (CK-2) (0.6-6.3) ng/mL Troponin I (<0.04) ng/mL B-Natriuretic Peptide ( - 100) pg/mL Total Protein (6.4-8.9) g/dL Albumin (3.2-5.2) g/dL Globulin (2-4) g/dL Albumin/Globulin Ratio (1-3) Result Diagrams: 11/06/17 12:35 11/06/17 12:35 Lab Statement: Any lab studies that have been ordered have been reviewed, and results considered in the medical decision making process. - Radiology CXR Radiology Interpretation Completed By: Radiologist - CXR reveals, per radiologist, NO EVIDENCE FOR ACUTE DISEASE. ED physician has reviewed this radiology report. - CT Thoracic Spine CT Interpretation Completed By: Radiologist - Thoracic Spine CT reveals, per radiologist, Levoscoliosis centered at T5. No fracture or abnormal erosions are noted in the thoracic spine. No spinal canal compromise is noted. ED physician has reviewed this radiology report. Lumbar Spine CT Interpretation Completed By: Radiologist - Lumbar Spine CT reveals, per radiologist, At L4-L5 broad-based protrusion flattens the thecal sac. Moderate facet and ligamentous hypertrophy is noted. Minimal degenerative disc disease at L5-S1. ED physician has reviewed this radiology report. Cervical Spine CT Interpretation Completed By: Radiologist - Cervical Spine CT reveals, per radiologist, 1. STRAIGHTENING AND REVERSAL OF THE NORMAL CERVICAL LORDOSIS. 2. MODERATE CERVICAL SPONDYLOSIS. IF THE PATIENT'S SYMPTOMS PERSIST CONSIDER MR IMAGING FOR FURTHER EVALUATION. ED physician has reviewed this radiology report. - EKG 1221 Cardiac Rate: NL EKG Rhythm: Sinus Rhythm - [address] Segment: Non-Specific Ectopy: None EKG Interpretation: normal AVIVCT; normal QTc; normal axis. EKG Comparison: No Significant Change - compared with EKG from 03/23/17 Re-Evaluation - Re-Evaluation First Eval Re-Evaluation Time: 12:25 Change: Unchanged Comment: informed pt EKG is normal. Pt has no chest pain or SOB. Second Eval Re-Evaluation Time: 13:35 Change: Improved Comment: Patient's condition is improved after ketorolac IV, and she continues to decline further pain medication. Neck Course/Dx - Course Course Of Treatment: In the ED course the patient was given Toradol with good relief of her discomfort. Pt had labs and EKG and CXR indicating no cardiothoracic origin for pt's interscapular pain. CT's of entire spine, show no fx, no spinal cord compression or spinal canal compromise or cause of pt's pain that needs emergency intervention. Pt advised of L4-L5 protrusion. Pt given copies of her labs and CT reports. Pt is reassured by these findings. Discussed with pt that it is well that she has not required addicting medication for control of rheumatoid arthritis pain, but pt is encouraged that it is OK to take occasional acetaminophen for discomfort. Pt states she was advised not to take NSAIDS in the past because of her stomach. - Diagnoses Differential Dx/HQI/PQRI: Positive: Arthritis, Cervical Fracture, Neoplasm, Sprain, Strain Provider Diagnoses: Rheumatoid arthritis, Acute back pain, Chronic back pain, Protrusion of intervertebral disc of lumbosacral region, Levoscoliosis, Cervical spondylosis Discharge - Discharge Plan Condition: Stable Disposition: HOME Patient Education Materials: Rheumatoid Arthritis (ED), Chronic Back Pain (ED) , Back Pain (ED) Referrals: Peyman Giang MD [Primary Care Provider] - 2 Days Additional Instructions: RETURN TO THE EMERGENCY DEPARTMENT FOR CHANGING OR WORSENING SYMPTOMS. The documentation as recorded by the Jazmine will Jason accurately reflects the service I personally performed and the decisions made by Cameron crowe Barbara J, MD.
== END 2017-11-06 14:22 | disposition home or self-care (01) ==
LOC: ED 10:01
DX: M54.9 Dorsalgia, unspecified (principal); M06.9 Rheumatoid arthritis, unspecified; M51.27 Other intervertebral disc displacement, lumbosacral region; G89.29 Other chronic pain; M41.80 Other forms of scoliosis, site unspecified; M47.9 Spondylosis, unspecified; E78.00 Pure hypercholesterolemia, unspecified; Z88.5 Allergy status to narcotic agent; E78.5 Hyperlipidemia, unspecified; Z72.0 Tobacco use
CPT/HCPCS: 36415; 71045; 72125; 72128; 72131; 80053; 82550; 82553; 83735; 83880; 84484; 85025; 85379; 85610; 93005; 96374; 99283; J1885

== ENCOUNTER 2018-01-15 16:12 | Emergency (ER) | payer MEDICARE ==
[2018-01-15 16:18] VITALS: BP 158/98
--- NOTE | 2018-01-15 16:58 | ED ---
Upper Extremity Pain - HPI Summary HPI Summary: 62-year-old female presents with right shoulder pain for the past 2 and half months. She denies any injury. He states it is under her right shoulder blade. She denies any weakness. She denies any numbness or tingling. He states that it radiates out to the under her axilla. She also has pain on her right shoulder. She states that today she developed some numbness along her lower ribs. She denies chest pain shortness breath. She denies any history of blood clots. She denies recent travel. She has not seen her primary at. She hasn't taking anything for her pain. She has full range of motion of her shoulder. - History of Current Complaint Chief Complaint: EDExtremityUpper Stated Complaint: RT ARM/SHLDR PAIN Time Seen by Provider: 01/15/18 16:52 - Allergies/Home Medications Allergies/Adverse Reactions: Allergies Allergy/AdvReac Type Severity Reaction Status Date / Time codeine Allergy Rash Verified 01/15/18 16:19 diazepam [From Valium] Allergy Slurred Verified 01/15/18 16:19 Speech prednisone Allergy Anaphylatic Verified 01/15/18 16:19 Shock propoxyphene [From Darvon] Allergy Altered Verified 01/15/18 16:19 Mental Status PMH/Surg Hx/FS Hx/Imm Hx Endocrine/Hematology History: Reports: Other Endocrine/Hematological Disorders - HLD Cardiovascular History: Reports: Hx Hypercholesterolemia, Other Cardiovascular Problems/Disorders - Endocarditis as a teenager Musculoskeletal History: Reports: Hx Rheumatoid Arthritis - Immunization History Date of Influenza Vaccine: has not received Infectious Disease History: No Infectious Disease History: Denies: Traveled Outside the [place] in Last 30 Days - Family History Known Family History: Positive: Other - HLD Negative: Cardiac Disease - No [place] - Social History Alcohol Use: None Hx Substance Use: No Substance Use Type: Reports: None Hx Tobacco Use: Yes Smoking Status (MU): Light Every Day Tobacco Smoker Review of Systems Negative: Fever Negative: Chest Pain Negative: Shortness Of Breath Positive: Myalgia - right shoulder pain All Other Systems Reviewed And Are Negative: Yes Physical Exam Triage Information Reviewed: Yes Vital Signs On Initial Exam: Initial Vitals Temp Pulse Resp BP Pulse Ox 98.1 F 111 18 158/98 97 01/15/18 16:15 01/15/18 16:15 01/15/18 16:15 01/15/18 16:15 01/15/18 16:15 Vital Signs Reviewed: Yes Appearance: Positive: Well-Appearing Skin: Positive: Warm, Dry Head/Face: Positive: Normal Head/Face Inspection Eyes: Positive: Normal, Conjunctiva Clear ENT: Positive: Pharynx normal Respiratory/Lung Sounds: Positive: Clear to Auscultation, Breath Sounds Present , Other - nontender chest wall Cardiovascular: Positive: Normal, RRR Musculoskeletal: Positive: Strength/ROM Intact - right shoulder, Other - good pulse, capillary refill<2secs, tenderness right shoulder blade Neurological: Positive: Normal Psychiatric: Positive: Normal Diagnostics - Vital Signs Vital Signs Temp Pulse Resp BP Pulse Ox 01/15/18 16:15 98.1 F 111 18 158/98 97 - Laboratory Lab Statement: Any lab studies that have been ordered have been reviewed, and results considered in the medical decision making process. - Radiology shoulder Xray Interpretation: No Acute Changes Radiology Interpretation Completed By: ED Physician back Xray Interpretation: No Acute Changes - degenerative changes Radiology Interpretation Completed By: ED Physician Course/Dx - Course Course Of Treatment: 62-year-old female presents with right shoulder pain for the past 2 and half months. She denies any injury. He states it is under her right shoulder blade. She denies any weakness. She denies any numbness or tingling. He states that it radiates out to the under her axilla. She also has pain on her right shoulder. She states that today she developed some numbness along her lower ribs. She denies chest pain shortness breath. She denies any history of blood clots. She denies recent travel. She has not seen her primary at. She hasn't taking anything for her pain. She has full range of motion of her shoulder. on exam has full rom shoulder. neurovascular intact. tenderness right side upper back. xray shows degenerative changes. will try muscle relaxer. patient requesting referral for ortho although pain likely from back. patient understand and agrees with plan. - Diagnoses Differential Diagnosis/HQI/PQRI: Positive: Fracture (Closed), Strain, Sprain Provider Diagnoses: Right shoulder pain Discharge - Sign-Out/Discharge Documenting (check all that apply): Discharge/Admit/Transfer - Discharge Plan Condition: Good Disposition: HOME Prescriptions: Cyclobenzaprine TAB* [Flexeril 10 MG TAB*] 10 mg PO TID PRN #21 tab PRN Reason: Pain Patient Education Materials: Shoulder Pain (ED) Referrals: Peyman Giang MD [Primary Care Provider] - Zack Espinal MD [Medical Doctor] - Additional Instructions: Take muscle relaxers three times a day as needed Use ibuprofen or Tylenol for pain every 6 hours ice/heat area, move as much as possible Follow up with primary or can follow up with ortho Return to ED if develop any new or worsening symptoms - Billing Disposition and Condition Condition: GOOD Disposition: HOME
--- NOTE | 2018-01-15 17:57 | RAD ---
Indication: RIGHT shoulder pain. 2 months duration. Comparison: No relevant prior exams available on the [facility] [place] [place] PACS for comparison. Technique: 4 views RIGHT shoulder Report: Negative for fracture. Small bone island at the glenoid. Normal acromioclavicular and glenohumeral joint alignment. Minimal acromioclavicular and glenohumeral joint osteophytosis. Mild glenohumeral joint space narrowing. Negative for stigmata of calcific tendinopathy. Unremarkable soft tissue contours. IMPRESSION: Mild osteoarthritis.
--- NOTE | 2018-01-15 18:00 | RAD ---
Indication: Chronic neck pain RIGHT side Comparison: November 06, 2017 CT. Technique: AP, open-mouth odontoid, lateral, and oblique views cervical spine. Report: Mild kyphosis of the cervical spine without significant facet subluxation at any level. Mild LEFT convex curve at the cervical thoracic junction without significant change. Negative for fracture. Diffuse degenerative spondylosis and facet joint osteoarthritis. Disc space narrowing is severe at C3-C4, C5-C6, and C6-C7. Uncinate process spurring and facet joint osteoarthritis results in significant osseous foraminal stenosis at C5-C6 and C6-C7 on the LEFT and less marked at C5-C6 and C6-C7 on the RIGHT. Unremarkable prevertebral soft tissue contours. IMPRESSION: No traumatic injury of the cervical spine evident. No significant change in multilevel advanced degenerative spondylosis and facet joint osteoarthritis compared with the November 06, 2017 CT.
--- NOTE | 2018-01-15 18:02 | RAD ---
Indication: RIGHT side back pain. Comparison: March 23, 2017 CT. Technique: AP and lateral views centered at the thoracic lumbar junction. Report: Negative for fracture. 24 degrees Ruvalcbaa angle dextroscoliosis measured between T7 and T12. 15 degrees Ruvalcaba angle levoscoliosis measured between L1 and L5. No vertebral anomalies evident. Moderate L4-L5 disc space narrowing. Unremarkable paraspinal soft tissue contours. IMPRESSION: No significant change in thoracic lumbar scoliosis. L4-L5 degenerative spondylosis without significant change.
== END 2018-01-15 17:53 | disposition home or self-care (01) ==
LOC: ED 16:12
DX: M25.511 Pain in right shoulder (principal); F17.210 Nicotine dependence, cigarettes, uncomplicated
CPT/HCPCS: 72050; 72080; 99282

== ENCOUNTER 2018-01-18 07:14 | Emergency (ER) | payer MEDICARE ==
[2018-01-18] MEDS ORDERED: NS 0.9% 1000 ML* 1,000 ML IV ONE (07:56)
[2018-01-18 08:17] LABS: ABS Basophils 0 10^3/ul (0-0.2); ABS Eosinophils 0 10^3/ul (0-0.6); ABS Lymphocytes 1.1 10^3/ul (1.0-4.8); ABS Monocytes 0.3 10^3/ul (0-0.8); ABS Neutrophils 4.9 10^3/ul (1.5-7.7); ABS Nucleated RBC 0 10^3/ul; Eosinophil % 0.3 % (0-6); Hematocrit 39 % (35-47); Hemoglobin 13.4 g/dl (12.0-16.0); Lymphocyte % 16.8 % (25-47); Mean Corpuscular HGB Conc 34 g/dl (31-36); Mean Corpuscular Hemoglobin 34 pg (27-31); Mean Corpuscular Volume 97 fL (80-97); Mean Platelet Volume 8.2 um3 (7.4-10.4); Nucleated Red Blood Cells % 0.1; Platelet Count 261 10^3/ul (150-450); Red Blood Count 4.01 10^6/ul (4.0-5.4); Red Cell Distribution Width 13 % (10.5-15); White Blood Count 6.3 10^3/ul (3.5-10.8)
[2018-01-18 08:30] LABS: INR 0.94 (0.77-1.02)
[2018-01-18 08:33] LABS: EGFR Non-African American 64.7 (>60)
[2018-01-18] MEDS ORDERED: Ondansetron INJ* 2 MG/ML VIAL IV ONE (09:11)
--- NOTE | 2018-01-18 09:11 | RAD ---
HISTORY: Vomiting COMPARISONS: November 06, 2017 VIEWS: 1: frontal portable view of the chest at 8:28 AM FINDINGS: LINES AND TUBES: None. CARDIOMEDIASTINAL SILHOUETTE: The cardiomediastinal silhouette is normal for portable technique. PLEURA: The costophrenic angles are sharp. No pleural abnormalities are noted. LUNG PARENCHYMA: The lungs are clear. ABDOMEN: The upper abdomen is clear. There is no subphrenic gas. BONES AND SOFT TISSUES: There is a scoliotic curvature of the spine. IMPRESSION: NO ACTIVE CARDIOPULMONARY DISEASE.
[2018-01-18] MEDS ORDERED: Iohexol 300* (CONTRAST) 10 ML SDV IV ONE (09:14)
[2018-01-18] MEDS ORDERED: Ondansetron ODT TAB* 4 MG PO ONE (09:24)
[2018-01-18 10:01] LABS: Urine Appearance Clear; Urine Blood 2+ (Negative); Urine Color Yellow; Urine Ketones Negative (Negative); Urine Protein Negative (Negative); Urine Specific Gravity 1.009 (1.010-1.030); Urine Urobilinogen Negative (Negative)
--- NOTE | 2018-01-18 11:16 | RAD ---
CLINICAL HISTORY: Abdominal pain, diverticulitis COMPARISON: March 23, 2017 TECHNIQUE: Multiple contiguous axial CT scans were obtained of the abdomen and pelvis after the administration of intravenous contrast. Coronal and sagittal multiplanar reformations are submitted for review. Oral contrast was administered. Delayed images were obtained through the abdomen. FINDINGS: LUNG BASES: The lung bases are clear. LIVER: The liver is diffusely low in attenuation compared to the spleen. There are no focal hepatic parenchymal masses. BILE DUCTS: There is no intrahepatic or extrahepatic biliary dilatation. GALLBLADDER: The gallbladder is normal, without pericholecystic inflammatory change. PANCREAS: The pancreas is normal, without mass or ductal dilatation. SPLEEN: Normal in size and appearance. UPPER GI TRACT: Evaluation of the gastrointestinal tract is limited by incomplete gastric distention. The upper GI tract is unremarkable. SMALL BOWEL AND MESENTERY: The small bowel is normal in contour, course, and caliber. There is no obstruction or dilatation. COLON: There is scattered diverticula of the colon. There is appreciable pericolonic inflammatory change. The appendix is not clearly visualized. ADRENALS: Normal bilaterally. KIDNEYS: The kidneys are normal in shape, size, contour, and axis. There is no hydronephrosis or nephrolithiasis. BLADDER: The bladder is smooth in contour. PELVIC ORGANS: The pelvic organs are not visualized. AORTA: There is calcific atherosclerotic disease of the abdominal aorta and its branches, without aneurysmal dilatation IVC: Unremarkable LYMPH NODES: There is no lymphadenopathy by size criteria. ABDOMINAL WALL: There is no evidence for abdominal wall hernia. BONES AND SOFT TISSUES: There are mild diffuse degenerative changes. OTHER: None IMPRESSION: FATTY INFILTRATION OF THE LIVER
[2018-01-18 11:36] VITALS: BP 135/80
--- NOTE | 2018-01-18 11:55 | ED ---
Christa Fischer Rebecca, scribed for [employer] on 01/18/18 at 0757 . Abdominal Pain/Female - HPI Summary HPI Summary: Pt is a 62 y/o F who presents to ED c/o abdominal pain with nausea for the past 3 days. Abdominal pain is diffuse and currently severe, ranked 8/10 on triage. Sx aggravated and alleviated by nothing. Additionally c/o bilateral ear plugging , phlegm production, generalized weakness, and being unable to eat. Denies V/D, constipation, CP, and SOB. PSHx appy. - History of Current Complaint Chief Complaint: EDNauseaVomitDiarrh Stated Complaint: UNABLE TO EAT Time Seen by Provider: 01/18/18 07:41 Hx Obtained From: Patient Onset/Duration: Lasting Days - 3 days, Still Present Severity Currently: Severe Pain Intensity: 8 Pain Scale Used: 0-10 Numeric Location: Diffuse Aggravating Factor(s): Nothing Alleviating Factor(s): Nothing Associated Signs and Symptoms: Positive: Nausea. Negative: Fever Allergies/Adverse Reactions: Allergies Allergy/AdvReac Type Severity Reaction Status Date / Time codeine Allergy Rash Verified 01/15/18 16:19 diazepam [From Valium] Allergy Slurred Verified 01/15/18 16:19 Speech prednisone Allergy Anaphylatic Verified 01/15/18 16:19 Shock propoxyphene [From Darvon] Allergy Altered Verified 01/15/18 16:19 Mental Status Home Medications: Home Medications Atorvastatin* [Lipitor*] 10 mg PO DAILY 01/18/18 [History Confirmed 01/18/18] PMH/Surg Hx/FS Hx/Imm Hx Endocrine/Hematology History: Reports: Other Endocrine/Hematological Disorders - HLD Cardiovascular History: Reports: Hx Hypercholesterolemia, Other Cardiovascular Problems/Disorders - Endocarditis as a teenager Musculoskeletal History: Reports: Hx Rheumatoid Arthritis - Immunization History Date of Influenza Vaccine: has not received Infectious Disease History: No Infectious Disease History: Denies: Traveled Outside the [place] in Last 30 Days - Family History Known Family History: Positive: Other - HLD Negative: Cardiac Disease - No [place] - Social History Alcohol Use: None Hx Substance Use: No Substance Use Type: Reports: None Hx Tobacco Use: Yes Smoking Status (MU): Light Every Day Tobacco Smoker Review of Systems Positive: Other - Bilateral ear plugging, phlegm production Negative: Chest Pain Negative: Shortness Of Breath Positive: Abdominal Pain, Nausea, Other - Unable to eat; NEGATIVE: Constipation. Negative: Vomiting, Diarrhea Positive: Weakness - Generalzied weakness All Other Systems Reviewed And Are Negative: Yes Physical Exam - Summary Physical Exam Summary: Appearance: Well appearing, no pain distress Skin: warm, dry, reflects adequate perfusion Head/face: normal Eyes: EOMI, [place] ENT: Dry mucous membranes Neck: supple, non-tender Respiratory: CTA, breath sounds present Cardiovascular: RRR, pulses symmetrical Abdomen: mild tenderness in the umbilical area Bowel: present Musculoskeletal: normal, strength/ROM intact Neuro: normal, sensory motor intact, A&Ox3 Triage Information Reviewed: Yes Vital Signs On Initial Exam: Initial Vitals Temp Pulse Resp BP Pulse Ox 99.1 F 84 16 145/82 98 01/18/18 07:19 01/18/18 07:19 01/18/18 07:19 01/18/18 07:19 01/18/18 07:19 Vital Signs Reviewed: Yes Diagnostics - Vital Signs Vital Signs Temp Pulse Resp BP Pulse Ox 01/18/18 07:19 99.1 F 84 16 145/82 98 - Laboratory Lab Results: Lab Results 01/18/18 01/18/18 01/18/18 Range/Units 08:04 08:04 08:04 WBC 6.3 (3.5-10.8) 10^3/ul RBC 4.01 (4.0-5.4) 10^6/ul Hgb 13.4 (12.0-16.0) g/dl Hct 39 (35-47) % MCV 97 (80-97) fL MCH 34 H (27-31) pg MCHC 34 (31-36) g/dl RDW 13 (10.5-15) % Plt Count 261 (150-450) 10^3/ul MPV 8.2 (7.4-10.4) um3 Neut % (Auto) 78.1 (38-83) % Lymph % (Auto) 16.8 L (25-47) % Rankin % (Auto) 4.1 (0-7) % Eos % (Auto) 0.3 (0-6) % Baso % (Auto) 0.7 (0-2) % Absolute Neuts (auto) 4.9 (1.5-7.7) 10^3/ul Absolute Lymphs (auto) 1.1 (1.0-4.8) 10^3/ul Absolute Monos (auto) 0.3 (0-0.8) 10^3/ul Absolute Eos (auto) 0 (0-0.6) 10^3/ul Absolute Basos (auto) 0 (0-0.2) 10^3/ul Absolute Nucleated RBC 0 10^3/ul Nucleated RBC % 0.1 INR (Anticoag Therapy) 0.94 (0.77-1.02) APTT 32.1 (26.0-36.3) seconds Sodium 140 (139-145) mmol/L Potassium 3.8 (3.5-5.0) mmol/L Chloride 107 (101-111) mmol/L Carbon Dioxide 27 (22-32) mmol/L Anion Gap 6 (2-11) mmol/L BUN 12 (6-24) mg/dL Creatinine 0.89 (0.51-0.95) mg/dL Est GFR ( Amer) 83.2 (>60) Est GFR (Non-Af Amer) 64.7 (>60) BUN/Creatinine Ratio 13.5 (8-20) Glucose 115 H (70-100) mg/dL Lactic Acid (0.5-2.0) mmol/L Calcium 10.0 (8.6-10.3) mg/dL Total Bilirubin 0.50 (0.2-1.0) mg/dL AST 22 (13-39) U/L ALT 20 (7-52) U/L Alkaline Phosphatase 51 (34-104) U/L Troponin I 0.00 (<0.04) ng/mL Total Protein 7.5 (6.4-8.9) g/dL Albumin 4.6 (3.2-5.2) g/dL Globulin 2.9 (2-4) g/dL Albumin/Globulin Ratio 1.6 (1-3) Lipase 17 (11.0-82.0) U/L Urine Color Urine Appearance Urine pH (5-9) Ur Specific [place] (1.010-1.030) Urine Protein (Negative) Urine Ketones (Negative) Urine Blood (Negative) Urine Nitrate (Negative) Urine Bilirubin (Negative) Urine Urobilinogen (Negative) Ur Leukocyte Esterase (Negative) Urine WBC (Auto) (Absent) Urine RBC (Auto) (Absent) Ur Squamous Epith Cells (Absent) Urine Bacteria (Absent) Urine Glucose (Negative) 01/18/18 01/18/18 Range/Units 08:04 09:35 WBC (3.5-10.8) 10^3/ul RBC (4.0-5.4) 10^6/ul Hgb (12.0-16.0) g/dl Hct (35-47) % MCV (80-97) fL MCH (27-31) pg MCHC (31-36) g/dl RDW (10.5-15) % Plt Count (150-450) 10^3/ul MPV (7.4-10.4) um3 Neut % (Auto) (38-83) % Lymph % (Auto) (25-47) % Rankin % (Auto) (0-7) % Eos % (Auto) (0-6) % Baso % (Auto) (0-2) % Absolute Neuts (auto) (1.5-7.7) 10^3/ul Absolute Lymphs (auto) (1.0-4.8) 10^3/ul Absolute Monos (auto) (0-0.8) 10^3/ul Absolute Eos (auto) (0-0.6) 10^3/ul Absolute Basos (auto) (0-0.2) 10^3/ul Absolute Nucleated RBC 10^3/ul Nucleated RBC % INR (Anticoag Therapy) (0.77-1.02) APTT (26.0-36.3) seconds Sodium (139-145) mmol/L Potassium (3.5-5.0) mmol/L Chloride (101-111) mmol/L Carbon Dioxide (22-32) mmol/L Anion Gap (2-11) mmol/L BUN (6-24) mg/dL Creatinine (0.51-0.95) mg/dL Est GFR ( Amer) (>60) Est GFR (Non-Af Amer) (>60) BUN/Creatinine Ratio (8-20) Glucose (70-100) mg/dL Lactic Acid 0.8 (0.5-2.0) mmol/L Calcium (8.6-10.3) mg/dL Total Bilirubin (0.2-1.0) mg/dL AST (13-39) U/L ALT (7-52) U/L Alkaline Phosphatase (34-104) U/L Troponin I (<0.04) ng/mL Total Protein (6.4-8.9) g/dL Albumin (3.2-5.2) g/dL Globulin (2-4) g/dL Albumin/Globulin Ratio (1-3) Lipase (11.0-82.0) U/L Urine Color Yellow Urine Appearance Clear Urine pH 5.0 (5-9) Ur Specific [place] 1.009 L (1.010-1.030) Urine Protein Negative (Negative) Urine Ketones Negative (Negative) Urine Blood 2+ A (Negative) Urine Nitrate Negative (Negative) Urine Bilirubin Negative (Negative) Urine Urobilinogen Negative (Negative) Ur Leukocyte Esterase Negative (Negative) Urine WBC (Auto) Trace(0-5/hpf) (Absent) Urine RBC (Auto) Trace(0-2/hpf) (Absent) Ur Squamous Epith Cells Present A (Absent) Urine Bacteria Absent (Absent) Urine Glucose Negative (Negative) Result Diagrams: 01/18/18 08:04 01/18/18 08:04 Lab Statement: Any lab studies that have been ordered have been reviewed, and results considered in the medical decision making process. - Radiology CXR Xray Interpretation: No Acute Changes - NO ACTIVE CARDIOPULMONARY DISEASE. ED physician reviewed this radiology report. Radiology Interpretation Completed By: Radiologist - CT CT Abd/Pel CT Interpretation Completed By: Radiologist - FATTY INFILTRATION OF THE LIVER. ED physician reviewed this report. - EKG 0806 Cardiac Rate: NL - 72 bpm EKG Rhythm: Sinus Rhythm EKG Interpretation: No acute changes Re-Evaluation - Re-Evaluation First Eval Re-Evaluation Time: 11:34 Comment: Discussed results and D/C with the pt. Abdominal Pain Fem Course/Dx - Course Course Of Treatment: Pt is a 62 y/o F who presents to ED c/o diffuse, severe abdominal pain with nausea for the past 3 days. Additionally c/o bilateral ear plugging, phlegm production, generalized weakness, and being unable to eat. Denies V/D, constipation, CP, and SOB. PSHx appy. Blood work and UA were done. Blood work results include a troponin of 0.00 and WBC of 6.3. CT Abd/Pel reveals fatty infiltration of the liver. CXR reveals no acute findings. EKG is sinus rhythm with no ischemic changes. In the ED course ,pt received Zofran and fluids. Pt will be D/C to home with Dx of URI and abdominal pain, nonspecific with Rx for Protonix. She understands and agrees. Allergies noted. - Diagnoses Differential Diagnosis: Positive: Diverticulitis, Pancreatitis, Urinary Tract Infection Provider Diagnoses: URI (upper respiratory infection), Nonspecific abdominal pain Discharge - Sign-Out/Discharge Documenting (check all that apply): Discharge/Admit/Transfer - Discharge - Discharge Plan Condition: Stable Disposition: HOME Prescriptions: Pantoprazole TAB (NF) [Protonix TAB (NF)] 40 mg PO DAILY #30 tab Patient Education Materials: Upper Respiratory Infection (ED), Acute Abdominal Pain (ED) Referrals: Peyman Giang MD [Primary Care Provider] - 3 Days Additional Instructions: RETURN TO ED FOR ANY NEW OR WORSENING SYMPTOMS. - Billing Disposition and Condition Condition: STABLE Disposition: HOME The documentation as recorded by the Christa will Rebecca accurately reflects the service I personally performed and the decisions made by Rosalva crowe Emmanuel.
== END 2018-01-18 11:45 | disposition home or self-care (01) ==
LOC: ED 07:14
DX: J06.9 Acute upper respiratory infection, unspecified (principal); R10.84 Generalized abdominal pain; R11.0 Nausea; E78.5 Hyperlipidemia, unspecified; E78.00 Pure hypercholesterolemia, unspecified; M06.9 Rheumatoid arthritis, unspecified; K76.0 Fatty (change of) liver, not elsewhere classified; Z88.5 Allergy status to narcotic agent; Z88.8 Allergy status to other drugs, medicaments and biological substances; F17.200 Nicotine dependence, unspecified, uncomplicated
CPT/HCPCS: 36415; 71045; 74177; 80053; 81003; 81015; 83605; 83690; 84484; 85025; 85610; 85730; 87086; 93005; 96360; 96361; 99283; A9270-GY; Q9967

== ENCOUNTER 2018-01-19 05:54 | Emergency (ER) | payer MEDICARE ==
[2018-01-19] MEDS ORDERED: NS 0.9% 1000 ML* 1,000 ML IV ONE (06:13)
[2018-01-19] MEDS ORDERED: Ondansetron ODT TAB* 4 MG PO ONE (06:13)
--- NOTE | 2018-01-19 06:25 | ED ---
Abdominal Pain/Female - HPI Summary HPI Summary: Pt. is a 62 y.o female who presents to the ER for lower abd. pain, nausea and diarrhea. Pt. states the pain and nausea started 5 days ago and diarrhea started just today. Pt. describes BM as water. No blood. Denies associated symptoms of fever/chills, CP, SOB, urinary symptoms. Notes she has felt fatigue and has had a poor appetite. Pt. denies any recent travel or new exposures. No sick contacts. Does use well water occasionally. Past medical hx of high cholesterol. Symptoms are moderate in severity. Pain is located to the lower abd. and is constant. Unable to describe quality of pain. No recent hospitalziation or antibiotic use. Pt. was seen in the ER yesterday for similar symptoms. At that time she had blood work, ecg, and ct scan of abd. which were all unremarkable. She was rx protonix. Pt. returns today with concerns of new symptom of diarrhea. - History of Current Complaint Chief Complaint: EDAbdPain Stated Complaint: ABD PAIN Time Seen by Provider: 01/19/18 06:03 Hx Obtained From: Patient Pain Intensity: 10 Allergies/Adverse Reactions: Allergies Allergy/AdvReac Type Severity Reaction Status Date / Time codeine Allergy Rash Verified 01/19/18 05:59 diazepam [From Valium] Allergy Slurred Verified 01/19/18 05:59 Speech prednisone Allergy Anaphylatic Verified 01/19/18 05:59 Shock propoxyphene [From Darvon] Allergy Altered Verified 01/19/18 05:59 Mental Status PMH/Surg Hx/FS Hx/Imm Hx Previously Healthy: Yes Endocrine/Hematology History: Reports: Other Endocrine/Hematological Disorders - HLD Denies: Hx Diabetes Cardiovascular History: Reports: Hx Hypercholesterolemia, Hx Hypertension, Other Cardiovascular Problems/Disorders - Endocarditis as a teenager History: Denies: Hx Renal Disease Musculoskeletal History: Reports: Hx Rheumatoid Arthritis - Immunization History Date of Influenza Vaccine: has not received Infectious Disease History: No Infectious Disease History: Denies: Traveled Outside the [place] in Last 30 Days - Family History Known Family History: Positive: Other - HLD Negative: Cardiac Disease - No [place] - Social History Occupation: Disabled Lives: With Family Alcohol Use: None Hx Substance Use: No Substance Use Type: Reports: None Hx Tobacco Use: Yes Smoking Status (MU): Light Every Day Tobacco Smoker Review of Systems Constitutional: Negative Cardiovascular: Negative Respiratory: Negative Positive: Abdominal Pain, Diarrhea, Nausea. Negative: Vomiting Genitourinary: Negative Musculoskeletal: Negative Neurological: Negative All Other Systems Reviewed And Are Negative: Yes Physical Exam Triage Information Reviewed: Yes Vital Signs On Initial Exam: Initial Vitals Temp Pulse Resp BP Pulse Ox 98.6 F 80 18 145/90 98 01/19/18 05:56 01/19/18 05:56 01/19/18 05:56 01/19/18 05:56 01/19/18 05:56 Vital Signs Reviewed: Yes Appearance: Positive: Pain Distress - Pain lying in bed on her right side. Appears uncomfortable but nontoxic. present. Skin: Positive: Warm, Dry Head/Face: Positive: Normal Head/Face Inspection Eyes: Positive: Normal Neck: Positive: Supple Respiratory/Lung Sounds: Positive: Clear to Auscultation Cardiovascular: Positive: Normal, RRR Abdomen Description: Positive: Other: - Abd. is soft with pain on palpation to right and left lower quadrants. No rebound tenderness or guarding. Hyperactive bowel sounds. Bowel Sounds: Positive: Hyperactive Musculoskeletal: Positive: Normal Neurological: Positive: Normal, CN Intact II-III Psychiatric: Positive: Normal Diagnostics - Vital Signs Vital Signs Temp Pulse Resp BP Pulse Ox 01/19/18 05:56 98.6 F 80 18 145/90 98 - Laboratory Result Diagrams: 01/19/18 06:33 01/19/18 06:33 Lab Statement: Any lab studies that have been ordered have been reviewed, and results considered in the medical decision making process. Abdominal Pain Fem Course/Dx - Course Course Of Treatment: Pt. presenting for ongoing lower abd. pain, nausea and new onset diarrhea. She is afebrile with stable vital signs. She hasa benign abd. exam. Will start with rechecking basic labs. Pt. started on IV fluids and given zofran. She declines pain medication. Will also obtain stool culture. Labs are unremarkable. On re-exam pt. states she feels a bit better after medications. Pending stool culture. Case discussed with Dr. Blackwell. Suspect viral etiology. Plan will be to dc home. Advised pt. to start protonix as directed. Rx for zofran sent. Will call if culture is positive. To return to ER if sxs change or worsen. Pt. understands and agrees with plan. - Diagnoses Differential Diagnosis: Positive: Appendicitis, Bowel Obstruction, Constipation , Diverticulitis, Gall Bladder Disease, Hepatitis, Pancreatitis, Peptic Ulcer Disease, Urinary Tract Infection Provider Diagnoses: Abdominal pain, Diarrhea Discharge - Sign-Out/Discharge Documenting (check all that apply): Discharge/Admit/Transfer - Discharge Plan Condition: Good Disposition: HOME Prescriptions: Ondansetron TAB* [Zofran 4 MG Tab*] 4 mg PO Q6H PRN #12 tab PRN Reason: Nausea Patient Education Materials: Gastroenteritis (ED), Acute Diarrhea (ED) Referrals: Peyman Giang MD [Primary Care Provider] - Additional Instructions: Call your PCP today for a follow up appointment Start medication that was prescribed to you yesterday, Protonix Increase fluids Clear liquid diet Can take over the counter Pepto-Bismol for symptomatic relief Will call if stool cultures are positive Return to ER if symptoms change or worsen - Billing Disposition and Condition Condition: GOOD Disposition: HOME
[2018-01-19 06:43] LABS: ABS Basophils 0.1 10^3/ul (0-0.2); ABS Eosinophils 0 10^3/ul (0-0.6); ABS Lymphocytes 1.2 10^3/ul (1.0-4.8); ABS Monocytes 0.4 10^3/ul (0-0.8); ABS Neutrophils 6.3 10^3/ul (1.5-7.7); ABS Nucleated RBC 0 10^3/ul; Eosinophil % 0.5 % (0-6); Hematocrit 37 % (35-47); Hemoglobin 12.6 g/dl (12.0-16.0); Lymphocyte % 14.5 % (25-47); Mean Corpuscular HGB Conc 35 g/dl (31-36); Mean Corpuscular Hemoglobin 34 pg (27-31); Mean Corpuscular Volume 98 fL (80-97); Nucleated Red Blood Cells % 0; Platelet Count 246 10^3/ul (150-450); Red Blood Count 3.71 10^6/ul (4.0-5.4); Red Cell Distribution Width 13 % (10.5-15); White Blood Count 7.9 10^3/ul (3.5-10.8)
[2018-01-19 07:01] LABS: EGFR Non-African American 59.3 (>60)
[2018-01-19 08:03] VITALS: BP 143/77
== END 2018-01-19 08:02 | disposition home or self-care (01) ==
LOC: ED 05:54
DX: R10.30 Lower abdominal pain, unspecified (principal); R19.7 Diarrhea, unspecified; R11.0 Nausea; F17.200 Nicotine dependence, unspecified, uncomplicated; Z88.5 Allergy status to narcotic agent; Z88.8 Allergy status to other drugs, medicaments and biological substances
CPT/HCPCS: 36415; 80053; 83605; 83690; 83735; 85025; 87045; 87046; 87077; 87177; 87209; 87328; 87329; 87493; 87899; 99283; A9270-GY

== ENCOUNTER 2018-01-29 09:47 | Emergency (ER) | payer MEDICARE ==
[2018-01-29 11:00] LABS: ABS Basophils 0 10^3/ul (0-0.2); ABS Eosinophils 0 10^3/ul (0-0.6); ABS Lymphocytes 1.2 10^3/ul (1.0-4.8); ABS Monocytes 0.3 10^3/ul (0-0.8); ABS Neutrophils 4.2 10^3/ul (1.5-7.7); ABS Nucleated RBC 0 10^3/ul; Eosinophil % 0.2 % (0-6); Hematocrit 40 % (35-47); Hemoglobin 13.5 g/dl (12.0-16.0); Lymphocyte % 21.1 % (25-47); Mean Corpuscular HGB Conc 34 g/dl (31-36); Mean Corpuscular Hemoglobin 33 pg (27-31); Mean Corpuscular Volume 98 fL (80-97); Mean Platelet Volume 8.5 um3 (7.4-10.4); Nucleated Red Blood Cells % 0.1; Platelet Count 237 10^3/ul (150-450); Red Blood Count 4.05 10^6/ul (4.0-5.4); Red Cell Distribution Width 13 % (10.5-15); White Blood Count 5.7 10^3/ul (3.5-10.8)
[2018-01-29 11:21] LABS: EGFR Non-African American 57.2 (>60)
--- NOTE | 2018-01-29 11:36 | RAD ---
Indication: Lower abdominal pain for the past month. Comparison: January 18, 2018 CT Technique: Supine and upright views of the abdomen. Report: Clear lung bases. Negative for free air beneath the diaphragm. Normal bowel gas pattern. Redundant transverse colon. Only a small amount of stool is visualized within the colon. No dilated bowel loops evident. Peripheral vascular calcifications and RIGHT pelvic phlebolith noted. Unremarkable soft tissue contours. IMPRESSION: No acute abdominal pelvic pathologic process evident.
[2018-01-29 12:26] LABS: Urine Appearance Clear; Urine Blood 2+ (Negative); Urine Color Straw; Urine Ketones Negative (Negative); Urine Protein Negative (Negative); Urine Specific Gravity 1.003 (1.010-1.030); Urine Urobilinogen Negative (Negative)
--- NOTE | 2018-01-29 12:57 | ED ---
Pedro Fischer Tiffany, scribed for Ej Cosby MD on 01/29/18 at 1026 . Abdominal Pain/Female - HPI Summary HPI Summary: 62 year old F presenting to [facility] complains of lower abdominal pain since five weeks ago, worse since this morning. She rates the pain 9/10 in severity. Symptoms aggravated by nothing. Symptoms alleviated by nothing. She reports diarrhea, decreased appetite, recent weight loss, and weakness. Patient has been here twice for same symptoms, during which she received CT Abd/Pel scan. She has also been seeing her GI, who did an US gallbladder. - History of Current Complaint Chief Complaint: EDAbdPain Stated Complaint: ABD PAIN Time Seen by Provider: 01/29/18 10:15 Hx Obtained From: Patient Onset/Duration: Lasting Weeks - 5, Still Present, Worse Since - this morning Timing: Constant Severity Currently: Severe Pain Intensity: 9 Pain Scale Used: 0-10 Numeric Location: Other - lower abd Aggravating Factor(s): Nothing Alleviating Factor(s): Nothing Associated Signs and Symptoms: Positive: Other: - reports diarrhea, decreased appetite, recent weight loss, and weakness. Allergies/Adverse Reactions: Allergies Allergy/AdvReac Type Severity Reaction Status Date / Time codeine Allergy Rash Verified 01/19/18 05:59 diazepam [From Valium] Allergy Slurred Verified 01/19/18 05:59 Speech prednisone Allergy Anaphylatic Verified 01/19/18 05:59 Shock propoxyphene [From Darvon] Allergy Altered Verified 01/19/18 05:59 Mental Status PMH/Surg Hx/FS Hx/Imm Hx Previously Healthy: No Endocrine/Hematology History: Reports: Other Endocrine/Hematological Disorders - HLD Denies: Hx Diabetes Cardiovascular History: Reports: Hx Hypercholesterolemia, Hx Hypertension, Other Cardiovascular Problems/Disorders - Endocarditis as a teenager History: Denies: Hx Renal Disease Musculoskeletal History: Reports: Hx Rheumatoid Arthritis - Surgical History Surgery Procedure, Year, and Place: Hysterectomy in 1921 when patient was 25 y/o - Immunization History Date of Influenza Vaccine: has not received Infectious Disease History: No Infectious Disease History: Denies: Traveled Outside the [place] in Last 30 Days - Family History Known Family History: Positive: Other - HLD Negative: Cardiac Disease - No [place] - Social History Lives: Alone Alcohol Use: None Hx Substance Use: No Substance Use Type: Reports: None Hx Tobacco Use: Yes Smoking Status (MU): Light Every Day Tobacco Smoker Review of Systems Positive: Abdominal Pain - lower abd, Diarrhea, Other - decreased appetite, recent weight loss Positive: Weakness All Other Systems Reviewed And Are Negative: Yes Physical Exam - Summary Physical Exam Summary: VITAL SIGNS: Reviewed. GENERAL: Patient is a well-developed and nourished female who is lying comfortable in the stretcher. Patient is not in any acute respiratory distress. HEAD AND FACE: Normocephalic and atraumatic. EYES: PERRLA, EOMI x 2, No injected conjunctiva. EARS: Hearing grossly intact. Ear canals and tympanic membranes are WNL. MOUTH: Oropharynx within normal limits. NECK: Supple, trachea is midline, no adenopathy, no JVD. CHEST: Symmetric, no tenderness at palpation LUNGS: Clear to auscultation bilaterally. No wheezing or crackles. CVS: RRR, S1 and S2 present, no murmurs or gallops appreciated. ABDOMEN: Soft, non-tender. No signs of distention. Positive bowel sounds. No rebound no guarding, and no masses palpated. No abdominal bruit or pulsations. EXTREMITIES: FROM in all major joints, no edema, no cyanosis or clubbing. NEURO: Alert and oriented x 3. No acute neurological deficits. Speech is normal. SKIN: Dry and warm Triage Information Reviewed: Yes Vital Signs On Initial Exam: Initial Vitals Temp Pulse Resp BP Pulse Ox 99.7 F 79 16 149/89 98 01/29/18 09:50 01/29/18 09:50 01/29/18 09:50 01/29/18 09:50 01/29/18 09:50 Vital Signs Reviewed: Yes Diagnostics - Vital Signs Vital Signs Temp Pulse Resp BP Pulse Ox 01/29/18 09:50 99.7 F 79 16 149/89 98 - Laboratory Lab Results: Lab Results 01/29/18 01/29/18 01/29/18 Range/Units 10:49 10:49 10:49 WBC 5.7 (3.5-10.8) 10^3/ul RBC 4.05 (4.0-5.4) 10^6/ul Hgb 13.5 (12.0-16.0) g/dl Hct 40 (35-47) % MCV 98 H (80-97) fL MCH 33 H (27-31) pg MCHC 34 (31-36) g/dl RDW 13 (10.5-15) % Plt Count 237 (150-450) 10^3/ul MPV 8.5 (7.4-10.4) um3 Neut % (Auto) 73.2 (38-83) % Lymph % (Auto) 21.1 L (25-47) % [place] % (Auto) 4.9 (0-7) % Eos % (Auto) 0.2 (0-6) % Baso % (Auto) 0.6 (0-2) % Absolute Neuts (auto) 4.2 (1.5-7.7) 10^3/ul Absolute Lymphs (auto) 1.2 (1.0-4.8) 10^3/ul Absolute Monos (auto) 0.3 (0-0.8) 10^3/ul Absolute Eos (auto) 0 (0-0.6) 10^3/ul Absolute Basos (auto) 0 (0-0.2) 10^3/ul Absolute Nucleated RBC 0 10^3/ul Nucleated RBC % 0.1 Sodium 141 (139-145) mmol/L Potassium 4.1 (3.5-5.0) mmol/L Chloride 104 (101-111) mmol/L Carbon Dioxide 29 (22-32) mmol/L Anion Gap 8 (2-11) mmol/L BUN 7 (6-24) mg/dL Creatinine 0.99 H (0.51-0.95) mg/dL Est GFR ( Amer) 73.6 (>60) Est GFR (Non-Af Amer) 57.2 (>60) BUN/Creatinine Ratio 7.1 L (8-20) Glucose 113 H (70-100) mg/dL Lactic Acid (0.5-2.0) mmol/L Calcium 9.9 (8.6-10.3) mg/dL Magnesium 2.0 (1.9-2.7) mg/dL Total Bilirubin 0.50 (0.2-1.0) mg/dL AST 19 (13-39) U/L ALT 17 (7-52) U/L Alkaline Phosphatase 43 (34-104) U/L Total Creatine Kinase 37 (10-223) U/L C-Reactive Protein 2.54 (< 5.00) mg/L B-Natriuretic Peptide ( - 100) pg/mL Total Protein 7.6 (6.4-8.9) g/dL Albumin 4.7 (3.2-5.2) g/dL Globulin 2.9 (2-4) g/dL Albumin/Globulin Ratio 1.6 (1-3) Lipase 14 (11.0-82.0) U/L Urine Color Straw Urine Appearance Clear Urine pH 6.0 (5-9) Ur Specific [place] 1.003 L (1.010-1.030) Urine Protein Negative (Negative) Urine Ketones Negative (Negative) Urine Blood 2+ A (Negative) Urine Nitrate Negative (Negative) Urine Bilirubin Negative (Negative) Urine Urobilinogen Negative (Negative) Ur Leukocyte Esterase Negative (Negative) Urine WBC (Auto) Absent (Absent) Urine RBC (Auto) Trace(0-2/hpf) (Absent) Ur Squamous Epith Cells Present A (Absent) Urine Bacteria Absent (Absent) Urine Glucose Negative (Negative) 01/29/18 01/29/18 Range/Units 10:49 10:49 WBC (3.5-10.8) 10^3/ul RBC (4.0-5.4) 10^6/ul Hgb (12.0-16.0) g/dl Hct (35-47) % MCV (80-97) fL MCH (27-31) pg MCHC (31-36) g/dl RDW (10.5-15) % Plt Count (150-450) 10^3/ul MPV (7.4-10.4) um3 Neut % (Auto) (38-83) % Lymph % (Auto) (25-47) % [place] % (Auto) (0-7) % Eos % (Auto) (0-6) % Baso % (Auto) (0-2) % Absolute Neuts (auto) (1.5-7.7) 10^3/ul Absolute Lymphs (auto) (1.0-4.8) 10^3/ul Absolute Monos (auto) (0-0.8) 10^3/ul Absolute Eos (auto) (0-0.6) 10^3/ul Absolute Basos (auto) (0-0.2) 10^3/ul Absolute Nucleated RBC 10^3/ul Nucleated RBC % Sodium (139-145) mmol/L Potassium (3.5-5.0) mmol/L Chloride (101-111) mmol/L Carbon Dioxide (22-32) mmol/L Anion Gap (2-11) mmol/L BUN (6-24) mg/dL Creatinine (0.51-0.95) mg/dL Est GFR ( Amer) (>60) Est GFR (Non-Af Amer) (>60) BUN/Creatinine Ratio (8-20) Glucose (70-100) mg/dL Lactic Acid 0.8 (0.5-2.0) mmol/L Calcium (8.6-10.3) mg/dL Magnesium (1.9-2.7) mg/dL Total Bilirubin (0.2-1.0) mg/dL AST (13-39) U/L ALT (7-52) U/L Alkaline Phosphatase (34-104) U/L Total Creatine Kinase (10-223) U/L C-Reactive Protein (< 5.00) mg/L B-Natriuretic Peptide 21 ( - 100) pg/mL Total Protein (6.4-8.9) g/dL Albumin (3.2-5.2) g/dL Globulin (2-4) g/dL Albumin/Globulin Ratio (1-3) Lipase (11.0-82.0) U/L Urine Color Urine Appearance Urine pH (5-9) Ur Specific [place] (1.010-1.030) Urine Protein (Negative) Urine Ketones (Negative) Urine Blood (Negative) Urine Nitrate (Negative) Urine Bilirubin (Negative) Urine Urobilinogen (Negative) Ur Leukocyte Esterase (Negative) Urine WBC (Auto) (Absent) Urine RBC (Auto) (Absent) Ur Squamous Epith Cells (Absent) Urine Bacteria (Absent) Urine Glucose (Negative) Result Diagrams: 01/29/18 10:49 01/29/18 10:49 Lab Statement: Any lab studies that have been ordered have been reviewed, and results considered in the medical decision making process. - Radiology Abdomen Radiology Interpretation Completed By: Radiologist - No acute abdominal pelvic pathologic process evident. ED physician has reviewed this report. - EKG 10:20 Cardiac Rate: NL EKG Rhythm: Sinus Rhythm EKG Interpretation: Nml sinus rhythm at [address] elevations. Nml axis. Re-Evaluation - Re-Evaluation First Eval Re-Evaluation Time: 12:40 Comment: Patient feels better, is agreeable to discharge. Abdominal Pain Fem Course/Dx - Course Course Of Treatment: This patient is a 62-year-old female who presents to the emergency room with a chief complaint of having lower abdominal pain. She reports that shes been having this pain for approximately 5 weeks as stated morning diarrhea. She also states that she has lost approximately 20 pounds in 5 weeks. He denies any nausea vomiting, constipation, gestations with the palpitations. Review of her old chart and the patient had a CAT scan of the abdomen and pelvis on November 18, 2017 which is shows that the patient has a fatty liver with no other findings. She also reports that she had a right upper quadrant ultrasound as an outpatient and it was also found to be negative. Blood work without any significant abnormality. Urinalysis is negative for UTI. Abdomen x-ray shows no acute intra-abdominal pathology. I offered the patient a pelvic exam however the patient declined. I discussed all the findings and test results with the patient. Patient was instructed to return to the emergency room immediately if any of the symptoms return or worsens. Plan of care was discussed with the patient and understands and agrees. All questions were answered at patient satisfaction. There were no further complaints or concerns. Lung exam before discharge: CTA B/L. Good air exchange. No wheezing or crackles heard. CVS: S1 and S2 present. No murmurs appreciated. Patient is alert and oriented x 3. Patient is hemodynamically stable. Patient will be discharged home with follow up PCP in the next 2-3 days - Diagnoses Differential Diagnosis: Positive: Bowel Obstruction, Constipation, Gall Bladder Disease, Urinary Tract Infection Provider Diagnoses: Lower abdominal pain Discharge - Sign-Out/Discharge Documenting (check all that apply): Discharge/Admit/Transfer - Discharge Plan Condition: Stable Disposition: HOME Patient Education Materials: Abdominal Pain (ED) Referrals: Peyman Giang MD [Primary Care Provider] - 3 Days Additional Instructions: FOLLOW UP WITH YOUR PRIMARY CARE PROVIDER IN 3 DAYS. RETURN TO THE EMERGENCY DEPARTMENT FOR ANY WORSENING OR NEW SYMPTOMS. - Billing Disposition and Condition Condition: STABLE Disposition: Home The documentation as recorded by the Pedro will Tiffany accurately reflects the service I personally performed and the decisions made by , Ej Cosby MD.
[2018-01-29 13:11] VITALS: BP 116/77
== END 2018-01-29 13:20 | disposition home or self-care (01) ==
LOC: ED 09:47
DX: R10.30 Lower abdominal pain, unspecified (principal); F17.200 Nicotine dependence, unspecified, uncomplicated; Z88.5 Allergy status to narcotic agent; Z88.8 Allergy status to other drugs, medicaments and biological substances
CPT/HCPCS: 36415; 74019; 80053; 81003; 81015; 82550; 83605; 83690; 83735; 83880; 85025; 86140; 93005; 99284

== ENCOUNTER 2018-05-11 09:06 | Emergency (ER) | payer MEDICARE ==
[2018-05-11] MEDS ORDERED: NS 0.9% 1000 ML* 1,000 ML IV ONE (09:54)
[2018-05-11 10:19] LABS: ABS Basophils 0.1 10^3/ul (0-0.2); ABS Eosinophils 0 10^3/ul (0-0.6); ABS Monocytes 0.3 10^3/ul (0-0.8); ABS Neutrophils 5.9 10^3/ul (1.5-7.7); ABS Nucleated RBC 0 10^3/ul; Eosinophil % 0.2 % (0-6); Hematocrit 39 % (35-47); Hemoglobin 13.2 g/dl (12.0-16.0); Lymphocyte % 14.1 % (25-47); Mean Corpuscular HGB Conc 34 g/dl (31-36); Mean Corpuscular Hemoglobin 33 pg (27-31); Mean Corpuscular Volume 98 fL (80-97); Nucleated Red Blood Cells % 0; Platelet Count 250 10^3/ul (150-450); Red Blood Count 3.96 10^6/ul (4.00-5.40); Red Cell Distribution Width 12 % (10.5-15); White Blood Count 7.3 10^3/ul (3.5-10.8)
--- NOTE | 2018-05-11 10:23 | RAD ---
HISTORY: SOB COMPARISONS: February 18, 2018 VIEWS: 4: Frontal dual-energy and lateral views of the chest. FINDINGS: CARDIOMEDIASTINAL SILHOUETTE: The cardiomediastinal silhouette is normal. SHANNEN: The shannen are normal. PLEURA: The costophrenic angles are sharp. No pleural abnormalities are noted. LUNG PARENCHYMA: The lungs are clear. ABDOMEN: The upper abdomen is clear. There is no subphrenic gas. BONES AND SOFT TISSUES: There is a scoliotic curvature of the spine. OTHER: None. IMPRESSION: NO ACTIVE CARDIOPULMONARY DISEASE.
[2018-05-11 10:29] LABS: Urine Appearance Clear; Urine Blood 1+ (Negative); Urine Color Straw; Urine Ketones Negative (Negative); Urine Protein Negative (Negative); Urine Red Blood Cell Trace(0-2/hpf) (Absent); Urine Specific Gravity 1.002 (1.010-1.030); Urine Urobilinogen Negative (Negative); Urine White Blood Cell Trace(0-5/hpf) (Absent)
[2018-05-11 10:39] LABS: EGFR Non-African American 61.5 (>60)
[2018-05-11 11:42] VITALS: BP 148/22
--- NOTE | 2018-05-11 16:57 | ED ---
Shortness of Breath - HPI Summary HPI Summary: Pt. is a 62 y.o female who presents to the ER for numerous complaints. Pt. noted that over the last 2-3 days she has had a stuffy nose and sore throat. She states that her sore throat makes her feel short of breath. She also notes ongoing right lower right pain for which she has had for several months. Pt. has been seen in ED numerous times for rib/abd. pain. She has had negative US and CT scans. Pt. states she just had an MRI thorax done yesterday. Pt. otherwise denies fever, chills, CP, abd. pain, N/V/D/C, urinary symptoms. She does not mild cough. Past medical hx of HTN, high cholesterol, RA. Symptoms are moderate in severity. No current modifying factors. - History of Current Complaint Chief Complaint: EDShortnessOfBreath Time Seen by Provider: 05/11/18 09:21 Hx Obtained From: Patient - Allergy/Home Medications Allergies/Adverse Reactions: Allergies Allergy/AdvReac Type Severity Reaction Status Date / Time codeine Allergy Rash Verified 05/11/18 09:17 diazepam [From Valium] Allergy Slurred Verified 05/11/18 09:17 Speech prednisone Allergy Anaphylatic Verified 05/11/18 09:17 Shock propoxyphene [From Darvon] Allergy Altered Verified 05/11/18 09:17 Mental Status PMH/Surg Hx/FS Hx/Imm Hx Previously Healthy: Yes Endocrine/Hematology History: Reports: Other Endocrine/Hematological Disorders - HLD Denies: Hx Diabetes Cardiovascular History: Reports: Hx Hypercholesterolemia, Hx Hypertension, Other Cardiovascular Problems/Disorders - Endocarditis as a teenager History: Denies: Hx Renal Disease Musculoskeletal History: Reports: Hx Rheumatoid Arthritis - Surgical History Surgery Procedure, Year, and Place: Hysterectomy in 1921 when patient was 25 y/o - Immunization History Date of Influenza Vaccine: has not received Infectious Disease History: No Infectious Disease History: Denies: Traveled Outside the [place] in Last 30 Days - Family History Known Family History: Positive: Other - HLD Negative: Cardiac Disease - No [place] - Social History Occupation: Retired Lives: With Family Alcohol Use: None Hx Substance Use: No Substance Use Type: Reports: None Hx Tobacco Use: Yes Smoking Status (MU): Light Every Day Tobacco Smoker Review of Systems Constitutional: Negative Eyes: Negative Positive: Sore Throat, Nasal Discharge Cardiovascular: Negative Positive: Shortness Of Breath, Cough Gastrointestinal: Negative Genitourinary: Negative Musculoskeletal: Negative Skin: Negative Neurological: Negative All Other Systems Reviewed And Are Negative: Yes Physical Exam Triage Information Reviewed: Yes Vital Signs On Initial Exam: Initial Vitals Temp Pulse Resp BP Pulse Ox 99.4 F 88 20 149/77 97 05/11/18 09:11 05/11/18 09:11 05/11/18 09:11 05/11/18 09:11 05/11/18 09:11 Vital Signs Reviewed: Yes Appearance: Positive: Well-Appearing - Pt. sitting up in bed in NAD. Breathing easily on RA. Very talkative. Anxious. Neighbor present. Skin: Positive: Warm, Dry Head/Face: Positive: Normal Head/Face Inspection Eyes: Positive: Normal, EOMI ENT: Positive: Other - Nasal congestion noted. Oral pharynx is injected with PND. No tonsillar edema or excudates. Uvula is midline without edema. No muffled voice or trismus. Neck: Positive: Supple, Nontender, No Lymphadenopathy Respiratory/Lung Sounds: Positive: Clear to Auscultation, Breath Sounds Present Cardiovascular: Positive: Normal, RRR Abdomen Description: Positive: Nontender, Soft Neurological: Positive: Normal, CN Intact II-III Psychiatric: Positive: Affect/Mood Appropriate, Anxious Diagnostics - Vital Signs Vital Signs Temp Pulse Resp BP Pulse Ox 05/11/18 11:41 98.4 F 74 16 148/22 96 05/11/18 11:00 68 21 99 05/11/18 10:00 70 16 98 05/11/18 09:57 78 22 137/87 99 05/11/18 09:28 107 138/83 98 05/11/18 09:27 100 96 05/11/18 09:11 99.4 F 88 20 149/77 97 - Laboratory Lab Results: Lab Results 05/11/18 05/11/18 05/11/18 Range/Units 10:13 10:13 10:13 WBC 7.3 (3.5-10.8) 10^3/ul RBC 3.96 L (4.00-5.40) 10^6/ul Hgb 13.2 (12.0-16.0) g/dl Hct 39 (35-47) % MCV 98 H (80-97) fL MCH 33 H (27-31) pg MCHC 34 (31-36) g/dl RDW 12 (10.5-15) % Plt Count 250 (150-450) 10^3/ul MPV 8.0 (7.4-10.4) um3 Neut % (Auto) 80.7 (38-83) % Lymph % (Auto) 14.1 L (25-47) % [place] % (Auto) 4.3 (0-7) % Eos % (Auto) 0.2 (0-6) % Baso % (Auto) 0.7 (0-2) % Absolute Neuts (auto) 5.9 (1.5-7.7) 10^3/ul Absolute Lymphs (auto) 1.0 (1.0-4.8) 10^3/ul Absolute Monos (auto) 0.3 (0-0.8) 10^3/ul Absolute Eos (auto) 0 (0-0.6) 10^3/ul Absolute Basos (auto) 0.1 (0-0.2) 10^3/ul Absolute Nucleated RBC 0 10^3/ul Nucleated RBC % 0 D-Dimer, Quantitative < 200 (Less Than 230) ng/mL Sodium 141 (135-145) mmol/L Potassium 4.4 (3.5-5.0) mmol/L Chloride 106 (101-111) mmol/L Carbon Dioxide 27 (22-32) mmol/L Anion Gap 8 (2-11) mmol/L BUN 10 (6-24) mg/dL Creatinine 0.93 (0.51-0.95) mg/dL Est GFR ( Amer) 74.4 (>60) Est GFR (Non-Af Amer) 61.5 (>60) BUN/Creatinine Ratio 10.8 (8-20) Glucose 108 H (70-100) mg/dL Calcium 10.1 (8.6-10.3) mg/dL Total Bilirubin 0.50 (0.2-1.0) mg/dL AST 19 (13-39) U/L ALT 14 (7-52) U/L Alkaline Phosphatase 49 (34-104) U/L Troponin I 0.00 (<0.04) ng/mL B-Natriuretic Peptide ( - 100) pg/mL Total Protein 7.8 (6.4-8.9) g/dL Albumin 4.8 (3.2-5.2) g/dL Globulin 3.0 (2-4) g/dL Albumin/Globulin Ratio 1.6 (1-3) Urine Color Urine Appearance Urine pH (5-9) Ur Specific [place] (1.010-1.030) Urine Protein (Negative) Urine Ketones (Negative) Urine Blood (Negative) Urine Nitrate (Negative) Urine Bilirubin (Negative) Urine Urobilinogen (Negative) Ur Leukocyte Esterase (Negative) Urine WBC (Auto) (Absent) Urine RBC (Auto) (Absent) Ur Squamous Epith Cells (Absent) Urine Bacteria (Absent) Urine Glucose (Negative) 05/11/18 05/11/18 Range/Units 10:13 10:13 WBC (3.5-10.8) 10^3/ul RBC (4.00-5.40) 10^6/ul Hgb (12.0-16.0) g/dl Hct (35-47) % MCV (80-97) fL MCH (27-31) pg MCHC (31-36) g/dl RDW (10.5-15) % Plt Count (150-450) 10^3/ul MPV (7.4-10.4) um3 Neut % (Auto) (38-83) % Lymph % (Auto) (25-47) % [place] % (Auto) (0-7) % Eos % (Auto) (0-6) % Baso % (Auto) (0-2) % Absolute Neuts (auto) (1.5-7.7) 10^3/ul Absolute Lymphs (auto) (1.0-4.8) 10^3/ul Absolute Monos (auto) (0-0.8) 10^3/ul Absolute Eos (auto) (0-0.6) 10^3/ul Absolute Basos (auto) (0-0.2) 10^3/ul Absolute Nucleated RBC 10^3/ul Nucleated RBC % D-Dimer, Quantitative (Less Than 230) ng/mL Sodium (135-145) mmol/L Potassium (3.5-5.0) mmol/L Chloride (101-111) mmol/L Carbon Dioxide (22-32) mmol/L Anion Gap (2-11) mmol/L BUN (6-24) mg/dL Creatinine (0.51-0.95) mg/dL Est GFR ( Amer) (>60) Est GFR (Non-Af Amer) (>60) BUN/Creatinine Ratio (8-20) Glucose (70-100) mg/dL Calcium (8.6-10.3) mg/dL Total Bilirubin (0.2-1.0) mg/dL AST (13-39) U/L ALT (7-52) U/L Alkaline Phosphatase (34-104) U/L Troponin I (<0.04) ng/mL B-Natriuretic Peptide 20 ( - 100) pg/mL Total Protein (6.4-8.9) g/dL Albumin (3.2-5.2) g/dL Globulin (2-4) g/dL Albumin/Globulin Ratio (1-3) Urine Color Straw Urine Appearance Clear Urine pH 6.0 (5-9) Ur Specific [place] 1.002 L (1.010-1.030) Urine Protein Negative (Negative) Urine Ketones Negative (Negative) Urine Blood 1+ A (Negative) Urine Nitrate Negative (Negative) Urine Bilirubin Negative (Negative) Urine Urobilinogen Negative (Negative) Ur Leukocyte Esterase Negative (Negative) Urine WBC (Auto) Trace(0-5/hpf) (Absent) Urine RBC (Auto) Trace(0-2/hpf) (Absent) Ur Squamous Epith Cells Present A (Absent) Urine Bacteria 1+ A (Absent) Urine Glucose Negative (Negative) Result Diagrams: 05/11/18 10:13 05/11/18 10:13 Lab Statement: Any lab studies that have been ordered have been reviewed, and results considered in the medical decision making process. Course/Dx - Course Course Of Treatment: Pt. presenting with a main complaint of a sore throat making her feel SOB. She is afebrile and very well appearing. O2 saturation is 97% on RA. Pt examine is relatively unremarkable other than evidence of URI. GIve complaints and hx will check labs, ecg and CXR. Blood work is unremarkable including negative d dime and trop. CXR is negative for acute fndings, per radiology. ECG shows no evidence of ischemia. On re-exam pt is resting comfortably. Results discussed. Suspect viral etiology. Pt. relieved test are negative. Will treat conservatively. Recommend humidifier, cough drops , warm tea and honey, increased fluids. To call PCP today for fu and return to ER if sx change or worsen. Pt. understands and agrees with plan. - Diagnoses Differential Diagnosis/HQI/PQRI: Positive: Airway Obstruction, Airway Foreign Body, Asthma, Bronchitis, CHF, COPD Exacerbation, [place], Pneumonia, Pulmonary Embolism Provider Diagnoses: Upper respiratory infection, Post-nasal drip Discharge - Sign-Out/Discharge Documenting (check all that apply): Patient Departure - Discharge Plan Condition: Good Disposition: HOME Patient Education Materials: Upper Respiratory Infection (ED), Postnasal Drip ( DC) Referrals: Peyman Giang MD [Primary Care Provider] - Additional Instructions: Follow up with PCP as scheduled Increase fluids and rest Drink warm tea with honey to help sore throat Can also use cough drops Use humidifier in bedroom Return to ER if symptoms change or worsen - Billing Disposition and Condition Condition: GOOD Disposition: Home
== END 2018-05-11 11:41 | disposition home or self-care (01) ==
LOC: ED 09:06
DX: J06.9 Acute upper respiratory infection, unspecified (principal); R09.82 Postnasal drip; I10 Essential (primary) hypertension; E78.00 Pure hypercholesterolemia, unspecified; M06.9 Rheumatoid arthritis, unspecified; F17.210 Nicotine dependence, cigarettes, uncomplicated; Z88.5 Allergy status to narcotic agent; Z88.8 Allergy status to other drugs, medicaments and biological substances
CPT/HCPCS: 36415; 71046; 80053; 81003; 81015; 83880; 84484; 85025; 85379; 87086; 93005; 96360; 99282

== ENCOUNTER 2018-07-22 10:48 | Emergency (ER) | payer MEDICARE ==
--- NOTE | 2018-07-22 12:53 | ED ---
GI/ HPI - HPI Summary HPI Summary: Pt is a 62 y/o female who presents to the ED c/o black stool. She was recently diagnosed with diverticulitis, and started Doxycycline 5 days ago. Pt states that she has had lower abdominal pain with a gurgling sensation for the past 5 days, and thinks its due to the antibiotics. This morning she had a GI appointment at 11:00, but was advised to come to the ED because of her black stool. Pt has had 5 BMs today, and describes the stool as soft and black. She also notes for the past 5 days shes been having soft diarrhea every morning. This morning she was only able to drink apple juice. Pt still has some lower left back pain due to her diverticulitis. - History of Current Complaint Chief Complaint: EDGIBleed Time Seen by Provider: 07/22/18 12:48 Stated Complaint: BLOOD IN STOOL, RAPID HEART RATE Hx Obtained From: Patient Onset/Duration: Started Days Ago - 5, Still Present Timing: Constant Current Severity: Moderate Pain Intensity: 3 Location of Pain: LLQ Pain Characteristics: Other: - Gurgling Associated Signs and Symptoms: Positive: Black Tarry Stool, Diarrhea, Abdominal Pain Additional Signs & Symptoms: Positive: Recent Antibiotics - On Doxycycline Alleviating Factor(s): Nothing - Allergy/Home Medications Allergies/Adverse Reactions: Allergies Allergy/AdvReac Type Severity Reaction Status Date / Time codeine Allergy Rash Verified 07/22/18 10:59 diazepam [From Valium] Allergy Slurred Verified 07/22/18 10:59 Speech prednisone Allergy Anaphylatic Verified 07/22/18 10:59 Shock propoxyphene [From Darvon] Allergy Altered Verified 07/22/18 10:59 Mental Status PMH/Surg Hx/FS Hx/Imm Hx Endocrine/Hematology History: Reports: Other Endocrine/Hematological Disorders - HLD Denies: Hx Diabetes Cardiovascular History: Reports: Hx Hypercholesterolemia, Hx Hypertension, Other Cardiovascular Problems/Disorders - Endocarditis as a teenager History: Denies: Hx Renal Disease Musculoskeletal History: Reports: Hx Rheumatoid Arthritis - Surgical History Surgery Procedure, Year, and Place: Hysterectomy in 1921 when patient was 25 y/o - Immunization History Date of Influenza Vaccine: has not received Infectious Disease History: No Infectious Disease History: Denies: Traveled Outside the [place] in Last 30 Days - Family History Known Family History: Positive: Other - HLD Negative: Cardiac Disease - No [place] - Social History Alcohol Use: None Hx Substance Use: No Substance Use Type: Reports: None Hx Tobacco Use: Yes Smoking Status (MU): Light Every Day Tobacco Smoker Review of Systems Negative: Fever Positive: Abdominal Pain, Diarrhea, Other - black stool All Other Systems Reviewed And Are Negative: Yes Physical Exam - Summary Physical Exam Summary: Appearance: The patient is well-nourished in no acute distress and in no acute pain. Skin: The skin is warm and dry and skin color reflects adequate perfusion. HEENT: The head is normocephalic and atraumatic. The pupils are equal and reactive. The conjunctivae are clear and without drainage. Nares are patent and without drainage. Mouth reveals moist mucous membranes and the throat is without erythema and exudate. The external ears are intact. The ear canals are patent and without drainage. The tympanic membranes are intact. Neck: The neck is supple with full range of motion and non-tender. There are no carotid bruits. There is no neck vein distension. Respiratory: Chest is non-tender. Lungs are clear to auscultation and breath sounds are symmetrical and equal. Cardiovascular: Heart is regular rate and rhythm. There is no murmur or rub auscultated. There is no peripheral edema and pulses are symmetrical and equal. Abdomen: The abdomen is soft. There are normal bowel sounds heard in all four quadrants and there is no organomegaly palpated. Mild LLQ tenderness. Musculoskeletal: There is no back tenderness noted. Extremities are non-tender with full range of motion. There is good capillary refill. There is no peripheral edema or calf tenderness elicited. Neurological: Patient is alert and oriented to person, place and time. The patient has symmetrical motor strength in all four extremities. Cranial nerves are grossly intact. Deep tendon reflexes are symmetrical and equal in all four extremities. Psychiatric: The patient has an appropriate affect and does not exhibit any anxiety or depression. Triage Information Reviewed: Yes Vital Signs On Initial Exam: Initial Vitals Temp Pulse Resp BP Pulse Ox 98.9 F 100 19 133/107 97 07/22/18 10:56 07/22/18 10:56 07/22/18 10:56 07/22/18 10:56 07/22/18 10:56 Vital Signs Reviewed: Yes Diagnostics - Vital Signs Vital Signs Temp Pulse Resp BP Pulse Ox 07/22/18 10:56 98.9 F 100 19 133/107 97 - Laboratory Result Diagrams: 07/22/18 13:16 07/22/18 13:16 Lab Statement: Any lab studies that have been ordered have been reviewed, and results considered in the medical decision making process. GIGU Course/Dx - Course Course Of Treatment: Ms. Rodriguez presented to the emergency department with 2 separate complaints. She was seen here a few days ago and diagnosed with diverticulitis after CT scan. She was started on Cipro and Flagyl and states that the antibiotics do not agree with her causing her to have a lot of abdominal activity and discomfort. The original presenting symptoms of left flank pain have disappeared. Additionally she is complaining of a couple of soft black stools today. She was nontoxic in appearance and her vital signs were stable here. Her abdomen was very soft and mildly tender in the left lower quadrant. Her labs were unremarkable. I noted on her previous visit her CT scan reading was equivocal therefore given that she feels that the antibiotics are not agreeing with her, I recommended that she stop the antibiotics for now and follow up with GI. - Diagnoses Provider Diagnoses: Diverticulitis Discharge - Sign-Out/Discharge Documenting (check all that apply): Patient Departure - Discharge - Discharge Plan Condition: Stable Disposition: HOME Patient Education Materials: Diverticulitis (ED) Referrals: Pastor Lopez DO [Doctor of Osteopathy] - Peyman Giang MD [Primary Care Provider] - Additional Instructions: Call to set up a new appointment with GI. RETURN TO THE ED WITH ANY NEW OR WORSENING SYMPTOMS. - Billing Disposition and Condition Condition: STABLE Disposition: Home - Attestation Statements Document Initiated by Juan Carlos: Yes Documenting Scribe: Destinee Sanchez Provider For Whom Juan Carlos is Documenting (Include Credential): Shankar Nunez MD Scribe Attestation: Destinee Fischer, scribed for Shankar Nunez MD on 07/22/18 at 1440. Scribe Documentation Reviewed: Yes Provider Attestation: The documentation as recorded by the Destinee will accurately reflects the service I personally performed and the decisions made by me, Shankar Nunez MD Status of Scribe Document: Viewed
[2018-07-22 13:25] LABS: ABS Basophils 0.1 10^3/ul (0-0.2); ABS Eosinophils 0 10^3/ul (0-0.6); ABS Lymphocytes 1.4 10^3/ul (1.0-4.8); ABS Monocytes 0.5 10^3/ul (0-0.8); ABS Neutrophils 4.9 10^3/ul (1.5-7.7); ABS Nucleated RBC 0 10^3/ul; Eosinophil % 0.7 %; Hematocrit 39 % (35-47); Hemoglobin 13.2 g/dl (12.0-16.0); Lymphocyte % 20.3 %; Mean Corpuscular HGB Conc 34 g/dl (31-36); Mean Corpuscular Hemoglobin 33 pg (27-31); Mean Corpuscular Volume 99 fL (80-97); Nucleated Red Blood Cells % 0.1; Platelet Count 269 10^3/ul (150-450); Red Blood Count 3.97 10^6/ul (4.00-5.40); Red Cell Distribution Width 13 % (10.5-15); White Blood Count 6.9 10^3/ul (3.5-10.8)
[2018-07-22 13:33] LABS: INR 1.06 (0.77-1.02)
[2018-07-22 13:46] LABS: EGFR Non-African American 60.7 (>60)
[2018-07-22 14:41] VITALS: BP 116/55
== END 2018-07-22 14:41 | disposition home or self-care (01) ==
LOC: ED 10:48
DX: K57.92 Diverticulitis of intestine, part unspecified, without perforation or abscess without bleeding (principal); E78.5 Hyperlipidemia, unspecified; E78.00 Pure hypercholesterolemia, unspecified; I10 Essential (primary) hypertension; M06.9 Rheumatoid arthritis, unspecified; Z72.0 Tobacco use
CPT/HCPCS: 36415; 80053; 85025; 85610; 85730; 86850; 86900; 86901; 99282

== ENCOUNTER → 2018-07-23 05:59 | Emergency (ER) | payer MEDICARE ==
[~2018-07-23 05:59] MED LIST: Iohexol 300* (CONTRAST) 10 ML SDV IV ONE; NS 0.9% 1000 ML* 1,000 ML IV ONE; Ondansetron INJ* 2 MG/ML VIAL IV ONE; PROCHLORPERAZINE INJ 5 MG/ML 2 ML VIAL IV ONE
--- NOTE | 2018-07-23 06:45 | ED ---
Abdominal Pain/Female - HPI Summary HPI Summary: Pt here for 3rd visit re: ab pain. She was seen on 07/17 and dx'd w/ diverticulitis - rx'd cipro and flagyl. Her cc was Lt flank pain. After staring anbx, Lt flank pain resolved next day. She also reports following day but stomach started bothering her - gurgling, ab pain, bloating some. This worsened each day. Developed dark stools yesterday - was seen here and told to stop anbx (no stool cx or coccult blood sample). Nausea and worsening of pain today w/ black slimy stools. Had fever 101 last night and this morning - has not taken any medication as stomach is so upset. This morning, she got dizzy and fell into the wall - no head injury, caught herself before falling. ."Don't even touch my belly". Lt LE is also hurting today - not sure why? H/o appendectomy as a child, partial hysterectomy (still has ovaries) - uterine injury after delivering large baby. Additionally has a URI w/ cough - phlegm in the morning. No meds. 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 Lassiter. Hasn't seen him in a while as Dr. Giang has been doing echocardiograms. No h/o cancer, no bleeding issues. Does not take anti-coagulant medications or supplements. Although pt appears to be in a great deal of pain, she declines pain medications. Explained we can give her a small dose but she still declines, stating "I don't like to take medications." - History of Current Complaint Chief Complaint: EDAbdPain Stated Complaint: BLACK SLIMY STOOL/VOMITING/LEFT ABD PAIN Time Seen by Provider: 07/23/18 06:26 Hx Obtained From: Patient, Family/Facilities Planner - male continuous improvement consultant, female continuous improvement consultant Pain Intensity: 10 Allergies/Adverse Reactions: Allergies Allergy/AdvReac Type Severity Reaction Status Date / Time codeine Allergy Rash Verified 07/23/18 06:27 diazepam [From Valium] Allergy Slurred Verified 07/23/18 06:27 Speech prednisone Allergy Anaphylatic Verified 07/23/18 06:27 Shock propoxyphene [From Darvon] Allergy Altered Verified 07/23/18 06:27 Mental Status PMH/Surg Hx/FS Hx/Imm Hx Previously Healthy: No - ab pain x 6 days w/ dark stools x 2 days Endocrine/Hematology History: Reports: Other Endocrine/Hematological Disorders - HLD Denies: Hx Diabetes Cardiovascular History: Reports: Hx Hypercholesterolemia, Hx Hypertension, 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, Other Cardiovascular Problems/Disorders - Endocarditis as a teenager GI History: Denies: Hx Cirrhosis, Hx Crohn's Disease, Hx Diverticulosis, Hx Gall Bladder Disease, Hx Gastroesophageal Reflux Disease, Hx Gastrointestinal Bleed, Hx Hiatal Hernia, Hx Irritable Bowel, Hx Obstructive Bowel, Hx Ileostomy, Hx Pyloric Stenosis, Hx Ulcer, Hx Urosepsis History: Denies: Hx Renal Disease Musculoskeletal History: Reports: Hx Rheumatoid Arthritis - Surgical History Surgery Procedure, Year, and Place: Hysterectomy in 1921 when patient was 25 y/o - Immunization History Date of Influenza Vaccine: has not received Infectious Disease History: No Infectious Disease History: Denies: Traveled Outside the [place] in Last 30 Days - Family History Known Family History: Positive: Other - HLD Negative: Cardiac Disease - No [place] - Social History Lives: With Family Alcohol Use: None Hx Substance Use: No Substance Use Type: Reports: None Hx Tobacco Use: Yes Smoking Status (MU): Light Every Day Tobacco Smoker Review of Systems Positive: Fever, Fatigue Eyes: Negative ENT: Negative Cardiovascular: Negative Respiratory: Negative Positive: Abdominal Pain Genitourinary: Negative Musculoskeletal: Negative Skin: Negative Neurological: Negative Positive: Anxious All Other Systems Reviewed And Are Negative: Yes Physical Exam Triage Information Reviewed: Yes Vital Signs On Initial Exam: Initial Vitals Temp Pulse Resp BP Pulse Ox 99.6 F 116 20 144/82 97 07/23/18 06:00 07/23/18 06:00 07/23/18 06:00 07/23/18 06:00 07/23/18 06:00 Vital Signs Reviewed: Yes Appearance: Positive: Well-Appearing, Well-Nourished, Pain Distress Skin: Positive: Warm, Skin Color Reflects Adequate Perfusion, Dry - no ecchymosis over ab/flank Head/Face: Positive: Normal Head/Face Inspection Eyes: Positive: Normal, EOMI, Conjunctiva Clear - anicteric sclera ENT: Positive: Normal ENT inspection, Hearing grossly normal Respiratory/Lung Sounds: Positive: Clear to Auscultation, Breath Sounds Present. Negative: Rales, Rhonchi, Wheezes Cardiovascular: Positive: Normal, Tachycardia, S1, S2. Negative: Murmur, Rub, Leg Edema Left, Leg Edema Right Abdomen Description: Positive: Soft, CVA Tenderness (L) - mild, Distended - mild , Other: - LLQ TTP - no rebounding, Rt side TTP - no rebounding; (-) Flynn's. Negative: CVA Tenderness (R), Guarding, Hernia @, McBurney's Point Tenderness Bowel Sounds: Positive: Present Pelvic Exam: Positive: Other - deferred Musculoskeletal: Positive: Normal, Strength/ROM Intact Neurological: Positive: Normal, Sensory/Motor Intact, Alert, Oriented to Person Place, Time, CN Intact II-III Psychiatric: Positive: Anxious - but polite, pleasant, cooperative Diagnostics - Vital Signs Vital Signs Temp Pulse Resp BP Pulse Ox 07/23/18 06:00 99.6 F 116 20 144/82 97 - Laboratory Result Diagrams: 07/23/18 06:39 07/23/18 06:39 Lab Statement: Any lab studies that have been ordered have been reviewed, and results considered in the medical decision making process. Re-Evaluation - Re-Evaluation First Eval Change: Improved - nausea improved but then returned after ab exam - ordered compazine Second Eval Change: Improved - nausea completely resolved and no vomiting w/ PO contrast - appears more comfortable, less ab pain Abdominal Pain Fem Course/Dx - Course Course Of Treatment: normal CT - improved from 07/17/2018. Labs are unremarkable for acute pathology. Urine + bacteria and blood but pt has not eaten in a few days, had BM - may be contaminated. (-) SOB. Stool cx pending. Pt feels better w/ IVF, anti-emetics. Will have her stop both Cipro and Flagyl and continue on a clear liquid diet for the next 48 hours. She may advance to a low residual diet with a course of the week and then to a full diet as tolerated. Advised avoiding stimulants such as caffeine, nicotine, alcohol, etc. She will keep her follow-up with GI for August [address] scan does show hepatis steatosis. She is aware that if she presents with danger signs and symptoms prior to this, she may return to the emergency department. Patient voices understanding and agrees with plan. - Diagnoses Provider Diagnoses: Ciprofloxacin adverse reaction Discharge - Sign-Out/Discharge Documenting (check all that apply): Patient Departure - Discharge Plan Condition: Stable Disposition: HOME Prescriptions: Ondansetron ODT TAB* [Zofran 4 MG Odt TAB*] 8 mg PO Q8H PRN #9 tab.odt PRN Reason: Nausea Patient Education Materials: Non-Alcoholic Fatty Liver Disease (ED), Adverse Drug Reaction (ED) Referrals: Peyman Giang MD [Primary Care Provider] - Additional Instructions: The results of your labs and CT scan today show improved inflammation within your abdomen and no concerns for further pathology at this time. Clinically, I suspect you have had a reaction to one of your antibiotics either Flagyl or Cipro. Given the history of your complaints, it sound like Cipro is the culprit. Stop both Flagyl and Cipro at this time and continue clear liquids for the next 48 hours. You may advance to a low residual diet after that time. Avoid stimulants such as nicotine, caffeine, alcohol and ibuprofen, aspirin, aleve, etc until all symptoms resolve. It is important to keep your follow-up appointment on August 03 2018 with GI to further evaluate the initial cause of your symptoms. Your CT scan also shows hepatosteatosis, a condition also known as "fatty liver". This is not an emergent condition but GI will be able to further address. See educational handout provided here today as well. Avoid future use of cipro and possibly flagyl as well. *If you develop worsening of abdominal pain, vomiting, excessive diarrhea, fevers, chills, bloody stools, return to the emergency department sooner. - Billing Disposition and Condition Condition: STABLE Disposition: Home
[2018-07-23 06:49] LABS: ABS Basophils 0.1 10^3/ul (0-0.2); ABS Eosinophils 0 10^3/ul (0-0.6); ABS Monocytes 0.5 10^3/ul (0-0.8); ABS Neutrophils 6.5 10^3/ul (1.5-7.7); ABS Nucleated RBC 0 10^3/ul; Eosinophil % 0.4 %; Hematocrit 39 % (35-47); Hemoglobin 13.5 g/dl (12.0-16.0); Lymphocyte % 12.6 %; Mean Corpuscular HGB Conc 35 g/dl (31-36); Mean Corpuscular Hemoglobin 34 pg (27-31); Mean Corpuscular Volume 99 fL (80-97); Mean Platelet Volume 8.2 fL (7.4-10.4); Nucleated Red Blood Cells % 0.1; Platelet Count 255 10^3/ul (150-450); Red Blood Count 3.92 10^6/ul (4.00-5.40); Red Cell Distribution Width 13 % (10.5-15); White Blood Count 8.1 10^3/ul (3.5-10.8)
[2018-07-23 06:54] LABS: Activated Partial Thrombo Time 29.8 seconds (26.0-36.3); INR 0.99 (0.77-1.02)
[2018-07-23 07:03] LABS: Albumin 4.6 g/dL (3.2-5.2); Albumin/Globulin Ratio 1.8 (1-3); BUN/Creatinine Ratio 12.1 (8-20); C Reactive Protein 4.86 mg/L (<8.01); Calcium 9.8 mg/dL (8.6-10.3); EGFR African American 76.3 (>60); EGFR Non-African American 63.1 (>60); Globulin 2.6 g/dL (2-4); Potassium 3.5 mmol/L (3.5-5.0); Total Bilirubin 0.6 mg/dL (0.2-1.0); Total Protein 7.2 g/dL (6.4-8.9)
[2018-07-23 09:18] LABS: Urine Appearance Clear; Urine Bacteria 1+ (Absent); Urine Bilirubin Negative (Negative); Urine Blood 2+ (Negative); Urine Color Straw; Urine Glucose Negative (Negative); Urine Ketones Trace (Negative); Urine Nitrite Negative (Negative); Urine Protein Negative (Negative); Urine Red Blood Cell Trace(0-2/hpf) (Absent); Urine Specific Gravity 1.003 (1.010-1.030); Urine Squamous Epithelial Cell Present (Absent); Urine Urobilinogen Negative (Negative); Urine White Blood Cell Absent (Absent)
[2018-07-23 12:22] VITALS: BP 126/81
== END | disposition home or self-care (01) ==
LOC: ED 05:59
DX: T36.8X5A Adverse effect of other systemic antibiotics, initial encounter (principal); Y92.9 Unspecified place or not applicable; E78.5 Hyperlipidemia, unspecified; E78.00 Pure hypercholesterolemia, unspecified; I10 Essential (primary) hypertension; M06.9 Rheumatoid arthritis, unspecified; K76.0 Fatty (change of) liver, not elsewhere classified
CPT/HCPCS: 36415; 74177; 80053; 81003; 81015; 82272; 83605; 83690; 85025; 85610; 85730; 86140; 87045; 87046; 87086; 87493; 87899; 93005; 96361; 96374; 96375; 96376; 99283; J0780; J2405; Q9967

== ENCOUNTER 2018-09-08 08:35 | Emergency (ER) | payer MEDICARE ==
--- NOTE | 2018-09-08 09:59 | ED ---
Throat Pain/Nasal Congestion - HPI Summary HPI Summary: Pt here w/ throat irritation x 2 weeks. Feels fine in the morning upon waking but then develop throat irritation after she starts coughing and clearing her throat from phlegm that has collected overnight. She reports brief relief with [place] cough drops, drinking liquids but most relief with Gavascon. She admits to nasal congestion, keeps house at 70F during the day w/o humidification and smoking. Intermittent ear congestion but denies fever, chills, ocular/sinus pain /pressure, headache, neck stiffness, chest pain, SOB, wheezing, difficulty breathing or swallowing, abdominal pain, nausea, vomiting or diarrhea (although the latter may be triggered when taking gavascon). Denies hematochezia/melena, fatigue, bruising or bleeding. She has an appt w/ ENT and GI for scope in October. Called her PCP this morning for an appointment and was told to come to the ED. - History of Current Complaint Chief Complaint: EDThroatPain Time Seen by Provider: 09/08/18 09:06 Hx Obtained From: Patient, Family/Ip Counsel - male sleeve maker - Allergies/Home Medications Allergies/Adverse Reactions: Allergies Allergy/AdvReac Type Severity Reaction Status Date / Time ciprofloxacin Allergy Severe GI Upset Verified 09/08/18 08:52 codeine Allergy Rash Verified 09/08/18 08:51 diazepam [From Valium] Allergy Slurred Verified 09/08/18 08:51 Speech prednisone Allergy Anaphylatic Verified 09/08/18 08:51 Shock propoxyphene [From Darvon] Allergy Altered Verified 09/08/18 08:51 Mental Status PMH/Surg Hx/FS Hx/Imm Hx Previously Healthy: Yes Endocrine/Hematology History: Reports: Other Endocrine/Hematological Disorders - HLD Denies: Hx Anticoagulant Therapy, Hx Blood Disorders, Hx Diabetes, Hx Thyroid Disease, Hx Anemia, Hx Unexplained Bleeding Cardiovascular History: Reports: Hx Hypercholesterolemia, Hx Hypertension, 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, Other Cardiovascular Problems/Disorders - Endocarditis as a teenager GI History: Denies: Hx Cirrhosis, Hx Crohn's Disease, Hx Diverticulosis, Hx Gall Bladder Disease, Hx Gastroesophageal Reflux Disease, Hx Gastrointestinal Bleed, Hx Hiatal Hernia, Hx Irritable Bowel, Hx Obstructive Bowel, Hx Ileostomy, Hx Pyloric Stenosis, Hx Ulcer, Hx Urosepsis History: Denies: Hx Renal Disease Musculoskeletal History: Reports: Hx Rheumatoid Arthritis - Surgical History Surgery Procedure, Year, and Place: Hysterectomy in 1921 when patient was 25 y/o - Immunization History Date of Influenza Vaccine: has not received Infectious Disease History: No Infectious Disease History: Denies: Traveled Outside the [place] in Last 30 Days - Family History Known Family History: Positive: Other - HLD Negative: Cardiac Disease - No [place] - Social History Lives: With Family Alcohol Use: None Hx Substance Use: No Substance Use Type: Reports: None Hx Tobacco Use: Yes - cutting back/trying to quit Smoking Status (MU): Current Every Day Smoker Review of Systems Constitutional: Negative Negative: Fever, Chills, Fatigue Eyes: Negative Positive: Sore Throat. Negative: Epistaxis, Dental Pain, Ear Ache, Nasal Discharge Cardiovascular: Negative Respiratory: Negative Gastrointestinal: Negative Positive: no symptoms reported Musculoskeletal: Negative Skin: Negative Neurological: Negative Psychological: Normal All Other Systems Reviewed And Are Negative: Yes Physical Exam Triage Information Reviewed: Yes Vital Signs On Initial Exam: Initial Vitals Temp Pulse Resp BP Pulse Ox 98.3 F 88 16 140/78 96 09/08/18 08:40 09/08/18 08:40 09/08/18 08:40 09/08/18 08:40 09/08/18 08:40 Vital Signs Reviewed: Yes Appearance: Positive: Well-Appearing, No Pain Distress, Well-Nourished Skin: Positive: Warm, Skin Color Reflects Adequate Perfusion, Dry Head/Face: Positive: Normal Head/Face Inspection Eyes: Positive: Normal, EOMI, Conjunctiva Clear - anicteric sclera ENT: Positive: Hearing grossly normal, Pharyngeal erythema - mild cobblestoning , TMs normal, Uvula midline. Negative: Nasal congestion, Nasal drainage, Tonsillar swelling, Tonsillar exudate, Trismus, Muffled voice, Hoarse voice, Dental tenderness, Sinus tenderness Neck: Positive: Supple, Nontender, No Lymphadenopathy - no gross thyromegaly Respiratory/Lung Sounds: Positive: Clear to Auscultation, Breath Sounds Present. Negative: Rales, Rhonchi, Stridor, Tracheal Deviation, Wheezes Cardiovascular: Positive: RRR, S1, S2. Negative: Leg Edema Left, Leg Edema Right Abdomen Description: Positive: Nontender, No Organomegaly, Soft Bowel Sounds: Positive: Present Musculoskeletal: Positive: Normal, Strength/ROM Intact Neurological: Positive: Normal, Sensory/Motor Intact, Alert, Oriented to Person Place, Time, CN Intact II-III Psychiatric: Positive: Normal - hyperverbal but pleasant, polite, cooperative Diagnostics - Vital Signs Vital Signs Temp Pulse Resp BP Pulse Ox 09/08/18 08:40 98.3 F 88 16 140/78 96 - Laboratory Result Diagrams: 09/08/18 09:58 Lab Statement: Any lab studies that have been ordered have been reviewed, and results considered in the medical decision making process. EENT Course/Dx - Course Course Of Treatment: Suspect PND and/or esophagitis from GERD. Diff dx: stricture, cervical m spasm, lesions/mass. Appears comfortable today - no need for more aggressive w/u as she is breathing/eating/drinking w/o difficulty. Offered supportive care and encouraged calling ENT and GI for earlier appointments. She does not appear to have actively bleeding ulcers based on CBC and vitals as well as reports of normal stools. Reviewed danger s/sx of when to return to ED. - Diagnoses Provider Diagnoses: Throat irritation Discharge - Sign-Out/Discharge Documenting (check all that apply): Patient Departure - Discharge Plan Condition: Stable Disposition: HOME Patient Education Materials: Gastroesophageal Reflux Disease (ED), Postnasal Drip (DC) Referrals: Peyman Giang MD [Primary Care Provider] - Additional Instructions: You may continue Gavascon or switch to another heartburn medication as desired - there are many products over the counter - check with pharmacist if you have questions. See see educational handout for further information about diet and lifestyle habits that may help or hurt this condition. It is also important that you follow up with your GI provider for an endoscope to better assess your esophagus and stomach. Call today to see if you can be seen before October however your labs and vital signs do not indicate active bleeding at this time. Additionally you are reporting and have appearance of postnasal drip. See educational handout for help in treating this condition however he may continue to struggle with this until you completely quit smoking. Congratulations on efforts to reduce and cut back! If he needs further assistance and support you may call [phone]. Follow up with ENT. In the meantime he may also try the following: Nasal wash (netti pot or saline spray) & salt water throat gargles 2 x day Drink you body weight in ounces of water every day Sleep 8+ hours per night Avoid Dairy and sugar Hot herbal/decaf tea with lemon & honey Chicken broth (preferably organic, free range chicken) Humidifier in house, but especially near bed at night Keep home temperature at 68F or less to reduce dryness Use cough drops/throat lozenges Try a facial steam with or without eucalyptus essential oil or Max's Vapor rub for congestion Avoid smoke, candles, perfumes, colognes, scented soaps/detergents , air fresheners and cleaning chemicals as these can cause airway irritation and trigger coughing Start Vitamin C 1000mg every day If you develop difficultly breathing or swallowing or bleeding from your throat or rectum, return to the ED - Billing Disposition and Condition Condition: STABLE Disposition: Home
[2018-09-08 10:11] LABS: Hematocrit 39 % (35-47); Hemoglobin 13.3 g/dl (12.0-16.0); Mean Corpuscular HGB Conc 34 g/dl (31-36); Mean Corpuscular Hemoglobin 34 pg (27-31); Mean Corpuscular Volume 98 fL (80-97); Mean Platelet Volume 8.3 fL (7.4-10.4); Platelet Count 270 10^3/ul (150-450); Red Blood Count 3.96 10^6/ul (4.00-5.40); Red Cell Distribution Width 12 % (10.5-15); White Blood Count 6.4 10^3/ul (3.5-10.8)
[2018-09-08 10:42] VITALS: BP 144/76
== END 2018-09-08 10:42 | disposition home or self-care (01) ==
LOC: ED 08:35
DX: R07.0 Pain in throat (principal); Z88.1 Allergy status to other antibiotic agents; Z88.5 Allergy status to narcotic agent; Z88.8 Allergy status to other drugs, medicaments and biological substances; F17.200 Nicotine dependence, unspecified, uncomplicated
CPT/HCPCS: 36415; 84443; 85027; 99282

== ENCOUNTER 2018-09-15 11:22 | Emergency (ER) | payer MEDICARE ==
[2018-09-15 13:12] LABS: ABS Basophils 0.1 10^3/ul (0-0.2); ABS Eosinophils 0.1 10^3/ul (0-0.6); ABS Lymphocytes 2.1 10^3/ul (1.0-4.8); ABS Monocytes 0.5 10^3/ul (0-0.8); ABS Neutrophils 3.7 10^3/ul (1.5-7.7); ABS Nucleated RBC 0 10^3/ul; Eosinophil % 0.8 %; Hematocrit 42 % (35-47); Mean Corpuscular HGB Conc 34 g/dl (31-36); Mean Corpuscular Hemoglobin 33 pg (27-31); Mean Corpuscular Volume 99 fL (80-97); Mean Platelet Volume 8.2 fL (7.4-10.4); Nucleated Red Blood Cells % 0.1; Platelet Count 333 10^3/ul (150-450); Red Blood Count 4.21 10^6/ul (4.00-5.40); Red Cell Distribution Width 13 % (10.5-15); White Blood Count 6.4 10^3/ul (3.5-10.8)
[2018-09-15 13:28] LABS: Albumin 4.5 g/dL (3.2-5.2); Albumin/Globulin Ratio 1.4 (1-3); BUN/Creatinine Ratio 11.5 (8-20); C Reactive Protein 1.4 mg/L (<8.01); Calcium 10.1 mg/dL (8.6-10.3); EGFR African American 80.1 (>60); EGFR Non-African American 66.2 (>60); Globulin 3.3 g/dL (2-4); Potassium 3.8 mmol/L (3.5-5.0); Total Bilirubin 0.4 mg/dL (0.2-1.0); Total Protein 7.8 g/dL (6.4-8.9)
[2018-09-15 13:30] LABS: Urine Appearance Clear; Urine Bacteria Absent (Absent); Urine Bilirubin Negative (Negative); Urine Blood 1+ (Negative); Urine Color Yellow; Urine Glucose Negative (Negative); Urine Ketones Negative (Negative); Urine Nitrite Negative (Negative); Urine Protein 1+(30 mg/dL) (Negative); Urine Red Blood Cell Trace(0-2/hpf) (Absent); Urine Specific Gravity 1.005 (1.010-1.030); Urine Squamous Epithelial Cell Present (Absent); Urine Urobilinogen Negative (Negative); Urine White Blood Cell Absent (Absent)
--- NOTE | 2018-09-15 14:46 | ED ---
GI/ HPI - HPI Summary HPI Summary: This pt is a 63 y/o female presenting to [facility] c/o bilateral flank pain for the past 4 days, more on the left side. Pt reports she also has urinary frequency, dysuria, and pain with urination. She notes her "pee pee area" is painful but denies sores, vaginal pain, vaginal discharge or bleeding. Denies fever, chills , headache, ear pain, sore throat, blurred vision, double vision, neck pain, chest pain, SOB, nausea, vomiting, diarrhea, bloody stools. Per nurse's note, pt was given antibiotics 3 days ago that she has not yet started. She states she was told by Dr. Ross to come to the ED for an evaluation. PMHx: diverticulitis, HTN, . Pt was prescribed Cipro for diverticulitis but notes it was "tearing her stomach apart." She had a colonoscopy in July 2018 and states it was normal. - History of Current Complaint Chief Complaint: EDFlankPain Stated Complaint: PAIN IN VAGINA/LOWER BACK AND ABD PAIN Hx Obtained From: Patient Onset/Duration: Started Days Ago, Still Present Timing: Lasting Days Current Severity: Moderate Pain Intensity: 10 Location of Pain: Flank - bilateral Associated Signs and Symptoms: Positive: Dysuria, Flank Pain - bilateral, UTI Symptoms - frequency. Negative: Fever, Chills, Chest Pain, Other: - NEG: headache, ear pain, sore throat, blurred vision, double vision, SOB Aggravating Factor(s): Nothing Alleviating Factor(s): Nothing - Allergy/Home Medications Allergies/Adverse Reactions: Allergies Allergy/AdvReac Type Severity Reaction Status Date / Time ciprofloxacin Allergy Severe GI Upset Verified 09/15/18 11:24 codeine Allergy Rash Verified 09/15/18 11:24 diazepam [From Valium] Allergy Slurred Verified 09/15/18 11:24 Speech prednisone Allergy Anaphylatic Verified 09/15/18 11:24 Shock propoxyphene [From Darvon] Allergy Altered Verified 09/15/18 11:24 Mental Status PMH/Surg Hx/FS Hx/Imm Hx Endocrine/Hematology History: Reports: Other Endocrine/Hematological Disorders - HLD Denies: Hx Anticoagulant Therapy, Hx Blood Disorders, Hx Diabetes, Hx Thyroid Disease, Hx Anemia, Hx Unexplained Bleeding Cardiovascular History: Reports: Hx Hypercholesterolemia, Hx Hypertension, 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, Other Cardiovascular Problems/Disorders - Endocarditis as a teenager GI History: Denies: Hx Cirrhosis, Hx Crohn's Disease, Hx Diverticulosis, Hx Gall Bladder Disease, Hx Gastroesophageal Reflux Disease, Hx Gastrointestinal Bleed, Hx Hiatal Hernia, Hx Irritable Bowel, Hx Obstructive Bowel, Hx Ileostomy, Hx Pyloric Stenosis, Hx Ulcer, Hx Urosepsis History: Denies: Hx Renal Disease Musculoskeletal History: Reports: Hx Rheumatoid Arthritis - Surgical History Surgery Procedure, Year, and Place: Hysterectomy in 1921 when patient was 25 y/o - Immunization History Date of Influenza Vaccine: has not received Infectious Disease History: No Infectious Disease History: Denies: Traveled Outside the [place] in Last 30 Days - Family History Known Family History: Positive: Other - HLD Negative: Cardiac Disease - No [place] - Social History Alcohol Use: None Hx Substance Use: No Substance Use Type: Reports: None Hx Tobacco Use: Yes - cutting back/trying to quit Smoking Status (MU): Current Every Day Smoker Review of Systems Negative: Fever, Chills Negative: Blurred Vision, Diplopia Negative: Sore Throat, Ear Ache Negative: Chest Pain Negative: Shortness Of Breath Negative: Vomiting, Diarrhea, Nausea, Other - NEG: blood in stools Positive: burning, frequency, flank pain - bilateral Negative: Other - NEG: neck pain Negative: Headache All Other Systems Reviewed And Are Negative: No Physical Exam - Summary Physical Exam Summary: Appearance: Alert, conversive, nontoxic appearing Skin: Warm, dry, no mottling, no rashes, no contusions HEENT: EOMI, PERRL, moist mucous membranes Neck: No masses on the neck, supple Respiratory: Clear to auscultation, breath sounds present, no rales, no rhonchi , no wheezes Cardiovascular: RRR, pulses are symmetrical in both lower and upper extremities Abdomen: Soft, non-tender Bowel Sounds: Present Musculoskeletal: No CVA tenderness, no obvious deformity, moving all extremities in a grossly normal manner Neurological: A&Ox3, CN II-XII Intact, moving all extremities symmetrically Psychiatric: Normal affect and mood Triage Information Reviewed: Yes Vital Signs On Initial Exam: Initial Vitals Temp Pulse Resp BP Pulse Ox 98.6 F 100 19 126/96 99 09/15/18 11:26 09/15/18 11:26 09/15/18 11:26 09/15/18 11:26 09/15/18 11:26 Vital Signs Reviewed: Yes Diagnostics - Vital Signs Vital Signs Temp Pulse Resp BP Pulse Ox 09/15/18 14:00 70 95 09/15/18 13:51 88 118/72 95 09/15/18 13:21 76 123/78 99 09/15/18 13:00 93 98 09/15/18 12:52 94 139/92 92 09/15/18 12:50 97 97 09/15/18 11:26 98.6 F 100 19 126/96 99 - Laboratory Lab Results: Lab Results 09/15/18 09/15/18 09/15/18 Range/Units 12:51 12:58 12:58 WBC 6.4 (3.5-10.8) 10^3/ul RBC 4.21 (4.00-5.40) 10^6/ul Hgb 14.0 (12.0-16.0) g/dl Hct 42 (35-47) % MCV 99 H (80-97) fL MCH 33 H (27-31) pg MCHC 34 (31-36) g/dl RDW 13 (10.5-15) % Plt Count 333 (150-450) 10^3/ul MPV 8.2 (7.4-10.4) fL Neut % (Auto) 57.1 % Lymph % (Auto) 33.0 % [place] % (Auto) 7.9 % Eos % (Auto) 0.8 % Baso % (Auto) 1.2 % Absolute Neuts (auto) 3.7 (1.5-7.7) 10^3/ul Absolute Lymphs (auto) 2.1 (1.0-4.8) 10^3/ul Absolute Monos (auto) 0.5 (0-0.8) 10^3/ul Absolute Eos (auto) 0.1 (0-0.6) 10^3/ul Absolute Basos (auto) 0.1 (0-0.2) 10^3/ul Absolute Nucleated RBC 0 10^3/ul Nucleated RBC % 0.1 Sodium 139 (135-145) mmol/L Potassium 3.8 (3.5-5.0) mmol/L Chloride 104 (101-111) mmol/L Carbon Dioxide 29 (22-32) mmol/L Anion Gap 6 (2-11) mmol/L BUN 10 (6-24) mg/dL Creatinine 0.87 (0.51-0.95) mg/dL Est GFR ( Amer) 80.1 (>60) Est GFR (Non-Af Amer) 66.2 (>60) BUN/Creatinine Ratio 11.5 (8-20) Glucose 95 (70-100) mg/dL Lactic Acid (0.5-2.0) mmol/L Calcium 10.1 (8.6-10.3) mg/dL Total Bilirubin 0.40 (0.2-1.0) mg/dL AST 19 (13-39) U/L ALT 14 (7-52) U/L Alkaline Phosphatase 48 (34-104) U/L C-Reactive Protein 1.40 (<8.01) mg/L Total Protein 7.8 (6.4-8.9) g/dL Albumin 4.5 (3.2-5.2) g/dL Globulin 3.3 (2-4) g/dL Albumin/Globulin Ratio 1.4 (1-3) Urine Color Yellow Urine Appearance Clear Urine pH 6.0 (5-9) Ur Specific [place] 1.005 L (1.010-1.030) Urine Protein 1+(30 mg/dl) A (Negative) Urine Ketones Negative (Negative) Urine Blood 1+ A (Negative) Urine Nitrate Negative (Negative) Urine Bilirubin Negative (Negative) Urine Urobilinogen Negative (Negative) Ur Leukocyte Esterase Negative (Negative) Urine WBC (Auto) Absent (Absent) Urine RBC (Auto) Trace(0-2/hpf) (Absent) Ur Squamous Epith Cells Present A (Absent) Urine Bacteria Absent (Absent) Urine Glucose Negative (Negative) 09/15/18 Range/Units 12:58 WBC (3.5-10.8) 10^3/ul RBC (4.00-5.40) 10^6/ul Hgb (12.0-16.0) g/dl Hct (35-47) % MCV (80-97) fL MCH (27-31) pg MCHC (31-36) g/dl RDW (10.5-15) % Plt Count (150-450) 10^3/ul MPV (7.4-10.4) fL Neut % (Auto) % Lymph % (Auto) % [place] % (Auto) % Eos % (Auto) % Baso % (Auto) % Absolute Neuts (auto) (1.5-7.7) 10^3/ul Absolute Lymphs (auto) (1.0-4.8) 10^3/ul Absolute Monos (auto) (0-0.8) 10^3/ul Absolute Eos (auto) (0-0.6) 10^3/ul Absolute Basos (auto) (0-0.2) 10^3/ul Absolute Nucleated RBC 10^3/ul Nucleated RBC % Sodium (135-145) mmol/L Potassium (3.5-5.0) mmol/L Chloride (101-111) mmol/L Carbon Dioxide (22-32) mmol/L Anion Gap (2-11) mmol/L BUN (6-24) mg/dL Creatinine (0.51-0.95) mg/dL Est GFR ( Amer) (>60) Est GFR (Non-Af Amer) (>60) BUN/Creatinine Ratio (8-20) Glucose (70-100) mg/dL Lactic Acid 0.6 (0.5-2.0) mmol/L Calcium (8.6-10.3) mg/dL Total Bilirubin (0.2-1.0) mg/dL AST (13-39) U/L ALT (7-52) U/L Alkaline Phosphatase (34-104) U/L C-Reactive Protein (<8.01) mg/L Total Protein (6.4-8.9) g/dL Albumin (3.2-5.2) g/dL Globulin (2-4) g/dL Albumin/Globulin Ratio (1-3) Urine Color Urine Appearance Urine pH (5-9) Ur Specific [place] (1.010-1.030) Urine Protein (Negative) Urine Ketones (Negative) Urine Blood (Negative) Urine Nitrate (Negative) Urine Bilirubin (Negative) Urine Urobilinogen (Negative) Ur Leukocyte Esterase (Negative) Urine WBC (Auto) (Absent) Urine RBC (Auto) (Absent) Ur Squamous Epith Cells (Absent) Urine Bacteria (Absent) Urine Glucose (Negative) Result Diagrams: 09/15/18 12:58 09/15/18 12:58 Lab Statement: Any lab studies that have been ordered have been reviewed, and results considered in the medical decision making process. Re-Evaluation - Re-Evaluation First Eval Re-Evaluation Time: 15:24 Comment: I updated the pt on her lab work results. GIGU Course/Dx - Course Assessment/Plan: Pt is a 63 y/o female, with hx of diverticulitis, who presents to the ED bilateral flank pain for the past 4 days, more so on the left side. Pt reports she also has urinary frequency, dysuria, and pain with urination. Lab work and urinalysis obtained. Pt will be discharged home with follow up from her PCP. She was recommended to take Tylenol and Motrin for the pain. She was instructed to return to the ED for any worsening or new symptoms. - Diagnoses Provider Diagnoses: Flank pain Discharge - Sign-Out/Discharge Documenting (check all that apply): Patient Departure - discharge home - Discharge Plan Condition: Stable Disposition: HOME Patient Education Materials: Flank Pain (ED) Referrals: Peyman Giang MD [Primary Care Provider] - Additional Instructions: Follow up with your primary care physician. return if worse or any new symptoms. Take tylenol and motrin for pain. - Billing Disposition and Condition Condition: STABLE Disposition: Home - Attestation Statements Document Initiated by Juan Carlos: Yes Documenting Scribe: Cecilia Hatfield Provider For Whom Juan Carlos is Documenting (Include Credential): Evita Woo MD Scribe Attestation: Cecilia Fischer, scribed for Evita Woo MD on 09/15/18 at 1808. Scribe Documentation Reviewed: Yes Provider Attestation: The documentation as recorded by the Cecilia will accurately reflects the service I personally performed and the decisions made by me, Evita Woo MD Status of Scribe Document: Viewed
[2018-09-15 15:51] VITALS: BP 123/79
== END 2018-09-15 15:50 | disposition home or self-care (01) ==
LOC: ED 11:22
DX: R10.9 Unspecified abdominal pain (principal); E78.5 Hyperlipidemia, unspecified; I10 Essential (primary) hypertension; E78.00 Pure hypercholesterolemia, unspecified; I38 Endocarditis, valve unspecified; F17.200 Nicotine dependence, unspecified, uncomplicated
CPT/HCPCS: 36415; 80053; 81003; 81015; 83605; 85025; 86140; 99283

== ENCOUNTER 2018-11-07 18:11 | Emergency (ER) | payer MEDICARE ==
[2018-11-07 18:26] VITALS: BP 144/93
== END 2018-11-07 20:02 | disposition left against medical advice (07) ==
LOC: ED 18:11
DX: N64.4 Mastodynia (principal); Z53.21 Procedure and treatment not carried out due to patient leaving prior to being seen by health care provider

== ENCOUNTER 2019-06-10 18:56 | Emergency (ER) | payer MEDICARE ==
--- OUTSIDE RECORDS SUMMARY | 2019-06-10 19:10 | XMS REPORT | Summary of Care ---
:1955 Author Organization [facility] Address [address] [facility] [place] [address] Care Team Providers Name Role Phone Peyman Giang MD Primary Care Provider Reason for Visit Reason Comments Throat Problem Pt. complaining of throat pain/soreness intermittently X 2 years. Heartburn Pt. wants to discuss possible acid reflux. Encounter Details Date Type Department Care Team Description 05/05/2019 Office Visit Wilner Wright Throat irritation (Primary Dx); Gastroenterology/Hepa Valeria Rocha NP Heartburn; tology 1 [facility] Epigastric discomfort [address] [facility] [place] [address] [place] [address] [phone] Allergies Active Allergy Reactions Severity Noted Date Comments Benzalk Cl-Ciprofloxacin Swelling 08/02/2018 Codeine Other 12/28/2007 Chest tightness. Propoxyphene Napsylate Rash 12/28/2007 Rash, throw up. Hydrocodone GI Reaction 12/28/2007 Throws up. Metronidazole Swelling 08/02/2018 Orasone GI Reaction, Swelling 06/22/2010 Kdc:Yellow Dye+Diazepam BOX TURNER Reaction High 01/25/2013 Couldn't speak documented as of this encounter (statuses as of 05/05/2019) Medications Medication Sig Dispensed Refills Start Date End Date Status Alum Hydroxide-Mag Take by mouth 0 Active Carbonate (GAVISCON EVERY BEDTIME. EXTRA RELIEF FORMULA PO) IBUPROFEN 200 PO Take by mouth 0 Active NEEDED. Polyethyl Place 2 Drops to 0 Active Glycol-Propyl Glycol the external eye (SYSTANE) 0.4-0.3 % TWICE DAILY. Ophthalmic Solution Calcium Carbonate Take 1 Tab by 0 Active Antacid (TUMS CHEWY mouth FOUR TIMES BITES) 750 MG Oral DAILY NEEDED. Chew Tab docusate sodium Take 50 mg by 0 Active (COLACE) 50 MG Oral mouth NEEDED. Cap atorvastatin (LIPITOR) Take 1 Tab by 90 Tab 1 04/22/2019 Active 10 MG Oral Tab mouth DAILY. documented as of this encounter (statuses as of 05/05/2019) Active Problems Problem Noted Date Rib pain 04/29/2018 Pure hypercholesterolemia 09/10/2017 Spondylosis without myelopathy or radiculopathy, lumbar region 08/19/2017 Cervical radiculopathy 04/08/2017 Cervical radiculitis 03/31/2017 Rheumatoid arthritis 04/05/2011 Overview: Dr Rossy [place], [place] rheumatology Refused arava prescription (aortic stenosis) 04/04/2010 Bicuspid aortic valve 04/04/2010 TOBACCO USE 12/28/2007 Overview: 1 packs per day Began age 37 MELORHEOSTOSIS 12/28/2007 documented as of this encounter (statuses as of 05/05/2019) Resolved Problems Problem Noted Date Resolved Date Rheumatoid arthritis(714.0) 12/28/2007 04/04/2010 Overview: Diagnosis 2005 Dr Padmini Price Left shoulder and wrist HISTORY OF Endocarditis 12/28/2007 04/04/2010 Overview: BICUSPID AORTIC VAVLE WITH AORTIC INSUFFICIENCY Disturbance of skin sensation 02/15/2004 03/21/2010 Pain in limb 02/15/2004 03/21/2010 Other and unspecified disc disorder of lumbar region 11/27/2003 03/21/2010 Other joint derangement, not elsewhere classified, ankle and 11/20/200303/21 foot Pain in limb 10/10/2003 03/21/2010 Neoplasm of unspecified nature of bone, soft tissue, and skin 10/10/200307/2010 Nonspecific (abnormal) findings on radiological and other 10/10/20032009 examination of musculoskeletal system Neoplasm of unspecified nature of bone, soft tissue, and skin 10/05/2003 Disorder of bone and cartilage, unspecified 08/28/2003 03/21/2010 documented as of this encounter (statuses as of 05/05/2019) Immunizations Name Administration Dates Next Due Depo Medrol (40mg) 01/10/2015 Influenza (IM) Preservative Free 09/16/2017, 05/29/2008 Influenza Vaccine Whole 06/14/2009, 06/28/2007 Influenza Virus Vaccine Pres Free 6-35 06/07/2012, 05/24/2011, 06/05/2010 Months TDAP Vaccine 06/10/2011 documented as of this encounter Social History Tobacco Use Types Packs/Day Years Used Date Current Some Day Smoker Cigarettes 1 31 Quit: 08/24/2011 Smokeless Tobacco: Never Used Alcohol Use Drinks/Week oz/Week Comments No 0 Standard drinks or equivalent 0.0 Sex Assigned at Date Recorded Not on file Job Start Date Occupation Industry Not on file Not on file Not on file Travel History Travel Start Travel End No recent travel history available. documented as of this encounter Last Filed Vital Signs Vital Sign Reading Time Taken Comments Blood Pressure 134/82 05/05/2019 1:00 PM EDT Pulse 78 05/05/2019 1:00 PM EDT Temperature 36.8 05/05/2019 1:00 PM EDT C (98.3 F) Respiratory Rate - - Oxygen Saturation - - Inhaled Oxygen Concentration - - Weight 55.1 kg (121 lb 8 oz) 05/05/2019 1:00 PM EDT Height 162.6 cm (5' 4") 05/05/2019 1:00 PM EDT Body Mass Index 20.86 05/05/2019 1:00 PM EDT documented in this encounter Patient Instructions Patient InstructionsValeria Wright NP - 05/05/2019 1:00 PM EDT1. Schedule barium swallow at [facility] 2. Will hold on any acid reducing medications until after the above 3. Follow up after the above Thank you for choosing the [facility] for your needs today! -Valeria Wright N.P. , Please call if you need to cancel or change your appt. time. Thank you for choosing [facility] for your health care needs, and for consulting with [facility] today. You may receive a survey following this visit, or after an upcoming hospital stay. As easy as it is to feel overloaded with surveys, we are required to send them out randomly and they do provide important feedback so that we may serve your needs in the best way. Please do take the few minutes required to complete the survey if you receive one. We get them too, after seeing the doctor, and they only take a few minutes to complete. documented in this encounter Progress Notes Valeria Wright NP - 05/05/2019 1:00 PM EDT PATIENT: Little Rodriguez : 1955 DATE OF SERVICE: 05/05/2019 REFERRING PRACTITIONER: Peyman Giang PRIMARY CARE PROVIDER: Peyman Giang CHIEF COMPLAINT: Chief Complaint Patient presents with Throat Problem Pt. complaining of throat pain/soreness intermittently X 2 years. Heartburn Pt. wants to discuss possible acid reflux. Subjective HISTORY OF PRESENT ILLNESS: Little Rodriguez is a 63-y.o. female who presents for a new visit for evaluation of gastroesophageal reflux disease, previously followed for LLQ abdominal pain which she reports has resolved. She has long standing throat irritation, cough and sinus pressure for which she had been seeing ENT,however recent CT was normal. She is now concerned for acid reflux, last EGD 09/2018 was normal. She is reluctant to start any medication without additional testing. She is a smoker, smokes 1 pk/d. Denies abdominal pain, heartburn, dysphagia, fatigue, nausea, vomiting, melena, hamatemesis, hematochezia, constipation, diarrhea, jaundice, fevers, chills, night sweats, weight loss, easy bruising, chest pain, shortness of breath, dysuria, hematuria, pyuria, joint pains, acholic stools, dark urine orsystemic pruritis. Past Medical History: Diagnosis Date Allergic to latex Aortic stenosis bicuspid AV Arthritis Hemorrhoids 2017 10 year HISTORY OF Endocarditis 12/28/2007 [address] MELORHEOSTOSIS 12/28/2007 Migraine ?? Other and unspecified hyperlipidemia Postmenopausal Rheumatoid arthritis(714.0) 12/28/2007 ?? TOBACCO USE 12/28/2007 Past Surgical History: Procedure Laterality Date APPENDECTOMY 1978 ECHOCARDIOGRAM 2010 mild and AR SD TOTAL ABDOM HYSTERECTOMY STRESS ECHO 2010 normal TOTAL ABD HYSTERECTOMY 1979 OVARIES REMAIN Family History Problem Relation Age of Onset Arthritis Mother High Cholesterol Father Hypertension Father Colon Cancer Brother Current Outpatient Medications Medication Sig Alum Hydroxide-Mag Carbonate (GAVISCON EXTRA RELIEF FORMULA PO) Take by mouth EVERY BEDTIME. atorvastatin (LIPITOR) 10 MG Oral Tab Take 1 Tab by mouth DAILY. Calcium Carbonate Antacid (TUMS CHEWY BITES) 750 MG Oral Chew Tab Take 1 Tab by mouth FOUR TIMES DAILY NEEDED. docusate sodium (COLACE) 50 MG Oral Cap Take 50 mg by mouth NEEDED. IBUPROFEN 200 PO Take by mouth NEEDED. Polyethyl Glycol-Propyl Glycol (SYSTANE) 0.4-0.3 % Ophthalmic Solution Place 2 Drops to the external eye TWICE DAILY. No current facility-administered medications for this visit. Allergies Allergen Reactions Valium [Kdc:Yellow Dye+Diazepam] BOX TURNER Reaction Couldn't speak Ciprofloxacin Hcl [Benzalk Cl-Ciprofloxacin] Swelling Codeine Other Chest tightness. Darvon-N [Propoxyphene Napsylate] Rash Rash, throw up. Hydrocodone GI Reaction Throws up. Metronidazole Swelling Prednisone [Orasone] GI Reaction and Swelling Social History Socioeconomic History Marital status: Spouse name: Not on file Number of children: Not on file Years of education: Not on file Highest education level: Not on file Occupational History Not on file Social Needs Financial resource strain: Not on file Food insecurity: Worry: Not on file Inability: Not on file Transportation needs: Medical: Not on file Non-medical: Not on file Tobacco Use Smoking status: Current Some Day Smoker Packs/day: 1.00 Years: 31.00 Pack years: 31.00 Types: Cigarettes Last attempt to quit: 08/24/2011 Years since quittin.7 Smokeless tobacco: Never Used Substance and Sexual Activity Alcohol use: No Alcohol/week: 0.0 standard drinks Drug use: No Sexual activity: Yes Partners: Male Comment: is , hysterectomy Lifestyle Physical activity: Days per week: Not on file Minutes per session: Not on file Stress: Not on file Relationships Social connections: Talks on phone: Not on file Gets together: Not on file Attends [employer]aritan service: Not on file Active member of club or organization: Not on file Attends meetings of clubs or organizations: Not on file Relationship status: Not on file Intimate partner violence: Fear of current or ex partner: Not on file Emotionally abused: Not on file Physically abused: Not on file Forced sexual activity: Not on file Other Topics Concern Back Care Not Asked Bike Helmet Not Asked Blood Transfusions Not Asked Caffeine Concern Not Asked Exercise Not Asked Hobby Hazards Not Asked International Travel Not Asked Service Not Asked Occupational Exposure Not Asked Seat Belt Not Asked Self-Exams Not Asked Sleep Concern Not Asked Special Diet Not Asked Stress Concern Not Asked Weight Concern Not Asked Social History Narrative Not on file REVIEW OF SYSTEMS: All remaining review of systems was negative except for as noted in the history of present illness/subjective. Objective PHYSICAL EXAMINATION: VITALS: BP 134/82 | Pulse 78 | Temp 98.3 F (36.8 C) | Ht 5' 4" ( 1.626 m) | Wt 121 lb 8 oz (55.1 kg) | LMP (LMP Unknown) | BMI 20.86 kg/m Body mass index is 20.86 kg/m. GENERAL: alert, oriented, no acute distress. HEENT: No scleral icterus, MMM Psych: Affect normal Neck: no lymphadenopathy LUNGS: clear to auscultation bilaterally. HEART: regular rhythm, no murmurs, no gallops, no rubs. ABDOMEN: general exam: soft, non-tender, non-distended, without masses or organomegaly, normal active bowel sounds, Flynn's sign negative. Extrmities: no edema Skin: clear Neuro: gait normal, a&o x 3 RECTAL: exam deferred. IMPRESSION: ICD-9-CM ICD-10-CM 1. Throat irritation 478.29 J39.2 XR UPPER GI SERIES WITH ESOPHAGUS W/ KUB 2. Heartburn 787.1 R12 3. Epigastric discomfort 789.06 R10.13 XR UPPER GI SERIES WITH ESOPHAGUS W/ KUB Plan PLAN: Patient Instructions 1. Schedule barium swallow at [facility] 2. Will hold on any acid reducing medications until after the above 3. Follow up after the above Thank you for choosing the [facility] for your needs today! -Valeria Wright N.P. , Please call if you need to cancel or change your appt. time. Thank you for choosing [facility] for your health care needs, and for consulting with [facility] today. You may receive a survey following this visit, or after an upcoming hospital stay. As easy as it is to feel overloaded with surveys, we are required to send them out randomly and they do provide important feedback so that we may serve your needs in the best way. Please do take the few minutes required to complete the survey if you receive one. We get them too, after seeing the doctor, and they only take a few minutes to complete. Author: Valeria Wright NP 05/05/2019 13:35 documented in this encounter Plan of Treatment Name Type Priority Associated Diagnoses Order Schedule XR UPPER GI SERIES WITH Imaging Routine Throat irritation Expected: 05/05/2019, ESOPHAGUS W/ KUB Epigastric discomfort Expires: 05/04/2020 Health Maintenance Due Date Last Done Comments MEDICARE ANNUAL WELLNESS 1955 VISIT PNEUMOCOCCAL 0-64 YRS (1 of 1963 1 - PPSV23) ZOSTER IMMUNIZATION SERIES 2007 (1 of 2) LUNG CANCER SCREENING 2012 INFLUENZA VACCINE (#1) 2019 09/16/2017, 06/14/2009, 05/29/2008, Additional history exists MAMMOGRAM (SCREENING) 11/13/2019 11/12/2018, 02/25/2017, 01/10/2015, Additional history exists DEPRESSION SCREENING 02/22/2020 02/21/2019 LIPID DISORDER SCREENING 04/22/2024 04/22/2019, 11/08/2018, 10/01/2017, Additional history exists COLONOSCOPY SCREENING 08/10/2028 08/10/2018, 01/02/2015 (Declined) HPV IMMUNIZATION SERIES Aged Out No longer eligible based on patient's age to complete this topic MENINGOCOCCAL VACCINE IMM Aged Out No longer eligible based on patient's age to complete this topic documented as of this encounter Goals Goal Patient Goal Associated Recent Patient-Stated? Author Type Problems Progress Work with your General No Rahat Promotion Writer MD Peyman Note: This is an individualized treatment (frequent ED use) goal for Little H Hubbard: Please work with your Promotion Writer, who will assist you in meeting your goals of care. Regular appointments with primary care provider Lifestyle No Peyman Giang MD (PCP) Note: This is an individualized lifestyle goal for Little Rodriguez: Please schedule regular visits with your primary care provider (PCP). Care provided in your PCP's office can help reduce your need for additional trips to the Emergency Room. Take all prescribed medications as directed Self-management No Peyman Giang MD Note: This is an individualized self-management goal for Little Rodriguez: Please take all prescribed medications as directed. 1. Do not skip doses. If you cannot afford your medications, talk with your doctor. 2. Use a pill reminder system such as a pill box if needed. Your pharmacist can help you with this. 3. Contact your Pharmacy 5 days before your medication runs out. If you cannot take your medications for any reasons, talk with your doctor. 4. Please bring all of your medication bottles and inhalers (or a list of all your medications/inhalers) with you to every visit. Potential barriers to meeting all of your care plan goals will continue to be addressed on an ongoing basis. documented as of this encounter Results Not on filedocumented in this encounter Visit Diagnoses Diagnosis Throat irritation - Primary Other diseases of pharynx, not elsewhere classified Heartburn Epigastric discomfort Abdominal pain, epigastric documented in this encounter Insurance Payer Benefit Plan / Subscriber ID Effective Dates Phone Address Type Group UHC MEDICARE [employer] xxxxxxxxx 2016-Present UHC ADVANTAGE MEDICARE ADVANTAGE Guarantor Name Account Type Relation to Date of Phone Billing Patient Address Little Rodriguez Personal/Family [address] (Home) [place], [place] [phone] [id number] (Work) documented as of this encounter
--- OUTSIDE RECORDS SUMMARY | 2019-06-10 19:10 | XMS REPORT | Summary of Care ---
:1955 Author Organization [facility] Address [address] [facility] [address] [place] [address] Care Team Providers Name Role Phone RahatPeyman encinas Primary Care Provider Reason for Visit Reason Comments Follow-up Follow-up to recent upper GI series. Encounter Details Date Type Department Care Team Description 06/07/2019 Office Visit Wilner Wright, Throat irritation Gastroenterology/Hepa Valeria Rocha NP (Primary Dx) tology 1 [facility] [address] [facility] [place] [address] [place] [id number] [phone] Allergies Active Allergy Reactions Severity Noted Date Comments Benzalk Cl-Ciprofloxacin Swelling 08/02/2018 Codeine Other 12/28/2007 Chest tightness. Propoxyphene Napsylate Rash 12/28/2007 Rash, throw up. Hydrocodone GI Reaction 12/28/2007 Throws up. Metronidazole Swelling 08/02/2018 Orasone GI Reaction, Swelling 06/22/2010 Kdc:Yellow Dye+Diazepam [employer] OFFICER Reaction High 01/25/2013 Couldn't speak documented as of this encounter (statuses as of 06/07/2019) Medications Medication Sig Dispensed Refills Start Date End Date Status Alum Hydroxide-Mag Take by mouth 0 Active Carbonate (GAVISCON EVERY BEDTIME. EXTRA RELIEF FORMULA PO) IBUPROFEN 200 PO Take by mouth [address] Active NEED[address]. Polyethyl Place 2 Drops to 0 Active Glycol-Propyl Glycol the external eye (SYSTANE) 0.4-0.3 % THREE TIMES DAILY. Ophthalmic Solution Calcium Carbonate Take 2 Tabs by 0 Active Antacid (TUMS CHEWY mouth DAILY. BITES) 750 MG Oral Chew Tab docusate sodium Take 50 mg by 0 Active (COLACE) 50 MG Oral mouth NEEDED. Cap atorvastatin (LIPITOR) Take 1 Tab by 90 Tab 1 04/22/2019 Active 10 MG Oral Tab mouth DAILY. 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 Cervical radiculopathy 04/08/2017 Cervical radiculitis 03/31/2017 Rheumatoid arthritis 04/05/2011 Overview: Dr Rossy [place], [place] rheumatology Refused arava prescription (aortic stenosis) 04/04/2010 Bicuspid aortic valve 04/04/2010 TOBACCO USE 12/28/2007 Overview: 1 packs per day Began age 37 MELORHEOSTOSIS 12/28/2007 documented as of this encounter (statuses as of 06/07/2019) Resolved Problems Problem Noted Date Resolved Date [...] as of this encounter (statuses as of 06/07/2019) Immunizations Name Administration Dates Next Due Depo [...] Sign Reading Time Taken Comments Blood Pressure 142/82 06/07/2019 9:39 AM EDT Pulse 72 06/07/2019 9:39 AM EDT Temperature 36.9 06/07/2019 9:39 AM EDT C (98.5 F) Respiratory Rate - - Oxygen Saturation - - Inhaled Oxygen Concentration - - Weight 55.3 kg (122 lb) 06/07/2019 9:39 AM EDT Height 162.6 cm (5' 4") 06/07/2019 9:39 AM EDT Body Mass Index 20.94 06/07/2019 9:39 AM EDT documented in this encounter Patient Instructions Patient InstructionsValeria Wright NP - 06/07/2019 10:00 AM EDTBarium swallow looks good! I would advise quitting smoking! Patient Education Quitting Smoking The Basics Written by the doctors and editors at [facility] What are the benefits of quitting smoking?Quitting smoking can lower your chances of getting or dying from heart disease, lung disease, kidney failure, infection, or cancer. It can also lower your chances of getting osteoporosis, a condition that makes your bones weak. Plus, quitting smoking can help your skin look younger and reduce the chances that you will have problems with sex. Quitting smoking will improve your health no matter how old you are, and no matter how long or how much you have smoked. What should I do if I want to quit smoking?The letters in the word "START" can help you remember the steps to take: S = Set a quit date. T = Tell family, friends, and the people around you that you plan to quit. A = Anticipate or plan ahead for the tough times you'll face while quitting. R = Remove cigarettes and other tobacco products from your home, car, and work. T = Talk to your doctor about getting help to quit. How can my doctor or nurse help?Your doctor or nurse can give you advice on the best way to quit. He or she can also put you in touch with counselors or other people you can call for support. Plus, your doctor or nurse can give you medicines to: Reduce your craving for cigarettes Reduce the unpleasant symptoms that happen when you stop smoking (called "withdrawal symptoms"). You can also get help from a free phone line (7-406-BHDT-NOW) or go online to www.smokefree.gov. What are the symptoms of withdrawal?The symptoms include: Trouble sleeping Being irritable, anxious or restless Getting frustrated or angry Having trouble thinking clearly Some people who stop smoking become temporarily depressed. Some people need treatment for depression, such as counseling or antidepressant medicines. Depressed people might: No longer enjoy or care about doing the things they used to like to do Feel sad, down, hopeless, nervous, or cranky most of the day, almost every day Lose or gain weight Sleep too much or too little Feel tired or like they have no energy Feel guilty or like they are worth nothing Forget things or feel confused Move and speak more slowly than usual Act restless or have trouble staying still Think about or suicide If you think you might be depressed, see your doctor or nurse. Only someone trained in mental healthcan tell for sure if you are depressed. If you ever feel like you might hurt yourself, go straight to the nearest emergency department. Or you can call for an ambulance (in the [place] and [place], dial 9) or call your doctor or nurse right away and tell them it is an emergency. You can also reach the [place] National Suicide Prevention Lifeline at 1- 858.314.5995 or www.suicidepreventionlifeline.org. How do medicines help you stop smoking?Different medicines work in different ways: Nicotinereplacement therapy eases withdrawal and reduces your body's craving for nicotine, the main drug found in cigarettes. There are different forms of nicotine replacement, including skin patches, lozenges, gum, nasal sprays, and "puffers" or inhalers. Many can be bought without a prescription, while others might require one. Bupropion is a prescription medicine that reduces your desire to smoke. This medicine is sold under the brand names Zyban and Wellbutrin. It is also available in a generic version, which is cheaper than brand name medicines. Varenicline (brand names: Chantix, Champix) is a prescription medicine that reduces withdrawal symptoms and cigarette cravings. If you think you'd like to take varenicline and you have a history of depression, anxiety, or heart disease, discuss this with your doctor or nurse before taking the medicine. Varenicline can also increase the effects of alcohol in some people. It's a good idea to limitdrinking while you're taking it, at least until you know how it affects you. How does counseling work?Counseling can happen during formal office visits or just over the phone. A counselor can help you: Figure out what triggers your smoking and what to do instead Overcome cravings Figure out what went wrong when you tried to quit before What works best?Studies show that people have the best luck at quitting if they take medicines to help them quit and work with a counselor. It might also be helpful to combine nicotine replacement with one of the prescription medicines that help people quit. In some cases, it might even make sense to take bupropion and varenicline together. What about e-cigarettes?Sometimes people wonder if using electronic cigarettes, or "e-cigarettes," might help them quit smoking. Using e- cigarettes is also called "vaping." Doctors do notrecommend e-cigarettes in place of medicines and counseling. That's because e-cigarettes still contain nicotine as well as other substances that might be harmful. It's not clear how they can affect a person's health in the termite inspector. Will I gain weight if I quit?Yes, you might gain a few pounds. But quitting smoking will have a much more positive effect on your health than weighing a few pounds more. Plus, you can help prevent some weight gain by being more active and eating less. Taking the medicine bupropion might help control weight gain. What else can I do to improve my chances of quitting?You can: Start exercising. Stay away from smokers and places that you associate with smoking. If people close to you smoke, ask them to quit with you. Keep gum, hard candy, or something to put in your mouth handy. If you get a craving for a cigarette, try one of these instead. Don't give up, even if you start smoking again. It takes most people a few tries before they succeed. What if I am and I smoke?If you are , it's really important for the health of your baby that you quit. Ask your doctor what options you have, and what is safest for your baby. All topics are updated as new evidence becomes available and our peer review process is complete. This topic retrieved from [employer] on: Jul 19, 2018. Topic 49980 Version 17.0 Release: 26.5.4 - C26.311 [employer] and/or its affiliates.All rights reserved. Consumer Information Use and Disclaimer This information is not specific medical advice and does not replace information you receive from your health care provider. This is only a brief summary of general information. It does NOT include allinformation about conditions, illnesses, injuries, tests, procedures, treatments, therapies, discharge instructions or life-style choices that may apply to you. You must talk with your health care provider for complete information about your health and treatment options. This information should not beused to decide whether or not to accept your health care provider's advice, instructions or recommendations. Only your health care provider has the knowledge and training to provide advice that is right for you.The use of [employer] content is governed by the [employer] Terms of Use. 2018 [employer]. All rights reserved. Copyright [employer] and/or its affiliates.All rights reserved. documented in this encounter Progress Notes Valeria Wright NP - 06/07/2019 10:00 AM EDT PATIENT: Little Rodriguez : 1955 DATE OF SERVICE: 06/07/2019 REFERRING PRACTITIONER: Valeria Wright PRIMARY CARE PROVIDER: Peyman Giang CHIEF COMPLAINT: Chief Complaint Patient presents with Follow-up Follow-up to recent upper GI series. Subjective HISTORY OF PRESENT ILLNESS: Little Rodriguez is a 63-y.o. female who presents for follow-up of UGI series which was normal. History of long standing throat irritation, cough and sinus pressure. She does feel that gaviscon helps and uses this at bedtime. Denies dysphagia, fatigue, nausea, vomiting, melena, hamatemesis, hematochezia, constipation, diarrhea, jaundice, fevers, chills, night sweats, weight loss, easy bruising, chest pain, shortness of breath, dysuria, hematuria, pyuria, joint pains, acholic stools, dark urine or systemic pruritis. Current Outpatient Medications Medication Sig Alum Hydroxide-Mag Carbonate (GAVISCON EXTRA RELIEF FORMULA PO) Take by mouth EVERY BEDTIME. atorvastatin (LIPITOR) 10 MG Oral Tab Take 1 Tab by mouth DAILY. Calcium Carbonate Antacid (TUMS CHEWY BITES) 750 MG Oral Chew Tab Take 2 Tabs by mouth DAILY. docusate sodium (COLACE) 50 MG Oral Cap Take 50 mg by mouth NEEDED. IBUPROFEN 200 PO Take by mouth NEEDED. Polyethyl Glycol-Propyl Glycol (SYSTANE) 0.4-0.3 % Ophthalmic Solution Place 2 Drops to the external eye THREE TIMES DAILY. No current facility-administered medications for this visit. Allergies Allergen Reactions Valium [Kdc:Yellow Dye+Diazepam] [employer] OFFICER Reaction Couldn't speak Ciprofloxacin Hcl [Benzalk Cl-Ciprofloxacin] Swelling Codeine Other Chest tightness. Darvon-N [Propoxyphene Napsylate] Rash Rash, throw up. Hydrocodone GI Reaction Throws up. Metronidazole Swelling Prednisone [Orasone] GI Reaction and Swelling REVIEW OF SYSTEMS: All remaining review of systems was negative except for as noted in the history of present illness/subjective. Objective PHYSICAL EXAMINATION: VITALS: BP 142/82 | Pulse 72 | Temp 98.5 F (36.9 C) | Ht 5' 4" ( 1.626 m) | Wt 122 lb (55.3 kg) | LMP (LMP Unknown) | BMI 20.94 kg/m Body mass index is 20.94 kg/m. GENERAL: alert, oriented, no acute distress. HEENT: No scleral icterus, MMM Psych: Affect normal Neck: supple Extrmities: no edema Skin: clear Neuro: gait normal, a&o x 3 RECTAL: exam deferred. IMPRESSION: ICD-9-CM ICD-10-CM 1. Throat irritation 478.29 J39.2 Plan PLAN: Patient Instructions Barium swallow looks good! I would advise quitting smoking! Patient Education Quitting Smoking The Basics Written by the doctors and editors at [facility] What are the benefits of quitting smoking?Quitting smoking can lower your chances of getting or dying from heart disease, lung disease, kidney failure, infection, or cancer. It can also lower your chances of getting osteoporosis, a condition that makes your bones weak. Plus, quitting smoking can help your skin look younger and reduce the chances that you will have problems with sex. Quitting smoking will improve your health no matter how old you are, and no matter how long or how much you have smoked. What should I do if I want to quit smoking?The letters in the word "START" can help you remember the steps to take: S = Set a quit date. T = Tell family, friends, and the people around you that you plan to quit. A = Anticipate or plan ahead for the tough times you'll face while quitting. R = Remove cigarettes and other tobacco products from your home, car, and work. T = Talk to your doctor about getting help to quit. How can my doctor or nurse help?Your doctor or nurse can give you advice on the best way to quit. He or she can also put you in touch with counselors or other people you can call for support. Plus, your doctor or nurse can give you medicines to: Reduce your craving for cigarettes Reduce the unpleasant symptoms that happen when you stop smoking (called "withdrawal symptoms"). You can also get help from a free phone line (4-952-JPIT-NOW) or go online to www.smokefree.gov. What are the symptoms of withdrawal?The symptoms include: Trouble sleeping Being irritable, anxious or restless Getting frustrated or angry Having trouble thinking clearly Some people who stop smoking become temporarily depressed. Some people need treatment for depression, such as counseling or antidepressant medicines. Depressed people might: No longer enjoy or care about doing the things they used to like to do Feel sad, down, hopeless, nervous, or cranky most of the day, almost every day Lose or gain weight Sleep too much or too little Feel tired or like they have no energy Feel guilty or like they are worth nothing Forget things or feel confused Move and speak more slowly than usual Act restless or have trouble staying still Think about or suicide If you think you might be depressed, see your doctor or nurse. Only someone trained in mental healthcan tell for sure if you are depressed. If you ever feel like you might hurt yourself, go straight to the nearest emergency department. Or you can call for an ambulance (in the [place] and [place], dial 9-1-1) or call your doctor or nurse right away and tell them it is an emergency. You can also reach the National Suicide Prevention Lifeline at 1- 906.960.1850 or www.suicidepreventionlifeline.org. How do medicines help you stop smoking?Different medicines work in different ways: Nicotinereplacement therapy eases withdrawal and reduces your body's craving for nicotine, the main drug found in cigarettes. There are different forms of nicotine replacement, including skin patches, lozenges, gum, nasal sprays, and "puffers" or inhalers. Many can be bought without a prescription, while others might require one. Bupropion is a prescription medicine that reduces your desire to smoke. This medicine is sold under the brand names Zyban and Wellbutrin. It is also available in a generic version, which is cheaper than brand name medicines. Varenicline (brand names: Chantix, Champix) is a prescription medicine that reduces withdrawal symptoms and cigarette cravings. If you think you'd like to take varenicline and you have a history of depression, anxiety, or heart disease, discuss this with your doctor or nurse before taking the medicine. Varenicline can also increase the effects of alcohol in some people. It's a good idea to limitdrinking while you're taking it, at least until you know how it affects you. How does counseling work?Counseling can happen during formal office visits or just over the phone. A counselor can help you: Figure out what triggers your smoking and what to do instead Overcome cravings Figure out what went wrong when you tried to quit before What works best?Studies show that people have the best luck at quitting if they take medicines to help them quit and work with a counselor. It might also be helpful to combine nicotine replacement with one of the prescription medicines that help people quit. In some cases, it might even make sense to take bupropion and varenicline together. What about e-cigarettes?Sometimes people wonder if using electronic cigarettes, or "e-cigarettes," might help them quit smoking. Using e- cigarettes is also called "vaping." Doctors do notrecommend e-cigarettes in place of medicines and counseling. That's because e-cigarettes still contain nicotine as well as other substances that might be harmful. It's not clear how they can affect a person's health in the termite inspector. Will I gain weight if I quit?Yes, you might gain a few pounds. But quitting smoking will have a much more positive effect on your health than weighing a few pounds more. Plus, you can help prevent some weight gain by being more active and eating less. Taking the medicine bupropion might help control weight gain. What else can I do to improve my chances of quitting?You can: Start exercising. Stay away from smokers and places that you associate with smoking. If people close to you smoke, ask them to quit with you. Keep gum, hard candy, or something to put in your mouth handy. If you get a craving for a cigarette, try one of these instead. Don't give up, even if you start smoking again. It takes most people a few tries before they succeed. What if I am and I smoke?If you are , it's really important for the health of your baby that you quit. Ask your doctor what options you have, and what is safest for your baby. All topics are updated as new evidence becomes available and our peer review process is complete. This topic retrieved from [employer] on: Jul 19, 2018. Topic 67837 Version 17.0 Release: 26.5.4 - C26.311 [employer]. and/or its affiliates.All rights reserved. Consumer Information Use and Disclaimer This information is not specific medical advice and does not replace information you receive from your health care provider. This is only a brief summary of general information. It does NOT include allinformation about conditions, illnesses, injuries, tests, procedures, treatments, therapies, discharge instructions or life-style choices that may apply to you. You must talk with your health care provider for complete information about your health and treatment options. This information should not beused to decide whether or not to accept your health care provider's advice, instructions or recommendations. Only your health care provider has the knowledge and training to provide advice that is right for you.The use of [employer] content is governed by the [employer] Terms of Use. 2018 [employer]. All rights reserved. Copyright 2018[employer]. and/or its affiliates.All rights reserved. Author: Valeria Wright NP 06/07/2019 10:02 documented in this encounter Plan of Treatment Health Maintenance Due Date Last Done Comments [...] Progress Work with your General No Rahat [employer] MD Peyman Note: This is an individualized treatment (frequent ED use) goal for Little Rodriguez: Please work with your Mechanic Industrial [employer], who will assist you in meeting your [...] Other diseases of pharynx, not elsewhere classified documented in this encounter Insurance Payer Benefit Plan / Subscriber ID Effective Dates Phone Address Type Group UHC MEDICARE [employer] xxxxxxxxx 2016-Present [facility] ADVANTAGE MEDICARE ADVANTAGE Guarantor Name Account Type Relation to Date of Phone Billing Patient Address Little Rodriguez Personal/Family [address] (Home) [place], [place] [phone] [id number] (Work) documented as of this encounter
--- OUTSIDE RECORDS SUMMARY | 2019-06-10 19:10 | XMS REPORT | Continuity of Care Document ---
:1955 External Reference #:[id number] Author Name Padmini Mitchell O.D. Address [address] [place] [address] Care Team Providers Name Role Phone Peyman Giang M.D. 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 Onset: 01/26/2019 Pain in eye Louise Cano O.D. Onset: 01/26/2019 Superficial punctate keratitis Louise Cano O.D. Onset: 01/26/2019 Tear film insufficiency Louise Cano O.D. Onset: 01/26/2019 Social History Type Date Description Comments Sex Unknown ETOH Use Denies alcohol use Tobacco Use Start: Unknown Light tobacco smoker (10 or fewer cigarettes/day) Recreational Drug Use Denies Drug Use Smoking Status Reviewed: 05/25/19 Light tobacco smoker (10 or fewer cigarettes/day) Allergies, Adverse Reactions, Alerts Active Allergies Reaction Severity Comments Date Prednisone 01/26/2019 [place] 01/26/2019 Codeine 01/26/2019 Propoxyphene 01/26/2019 Valium 01/26/2019 Ciprofloxacin 01/26/2019 Medications Active Medications SIG Qnty Indications Ordering Provider Date Atorvastatin Calcium Unknown 10mg Tablets Tums Extra Strength 750 Unknown 750mg Chewtabs Gaviscon Extra Strength Unknown 254-237.5mg/5ML Suspension Eq Stool Unknown Softener/Stimulant Laxative 8.6-50mg Tablets Systane 1 drop ou every Louise Manuel 0.4-0.3% Solution 3 hours Duncan Cano Warm Compresses as needed Louise Aj. Duncan Cano Ibuprofen 200 Unknown 200mg Tablets Immunizations Description No Information Available Vital Signs Description No Information Available Results Description No Information Available Procedures Date Code Description Status 01/26/2019 09211 New Patient Comprehensive Exam Completed Medical Devices Description No Information Available Encounters Type Date Location Provider Dx Diagnosis Office Visit 02/09/2019 Louise Nina H04.123 Dry eye syndrome 12:00p , pc Duncan Cano of bilateral lacrimal glands H16.142 Punctate keratitis, left eye H57.12 Ocular pain, left eye H25.13 Age-related nuclear cataract, bilateral Assessments Date Code Description Provider 05/25/2019 H04.123 Dry eye syndrome of bilateral lacrimal Padmini Mitchell O.D. glands 02/09/2019 H04.123 Dry eye syndrome of bilateral lacrimal Louise Cano O.D. glands 02/09/2019 H16.142 Punctate keratitis, left eye Louise Cano O.D. 02/09/2019 H57.12 Ocular pain, left eye Louise Cano O.D. 02/09/2019 H25.13 Age-related nuclear cataract, bilateral Louise Cano O.D. 01/26/2019 H04.123 Dry eye syndrome of bilateral lacrimal Louise Cano O.D. glands 01/26/2019 H16.142 Punctate keratitis, left eye Louise Cano O.D. 01/26/2019 H57.12 Ocular pain, left eye Louise Cano O.D. 01/26/2019 H25.13 Age-related nuclear cataract, bilateral Louise Cano O.D. Plan of Treatment 05/25/2019 - Padmini Mitchell O.D.H04.123 Dry eye syndrome of bilateral lacrimal glandsComments:Smoking can increase the risk of developing or worsening any eye related disease, as well as affect your overall health. If you are a smoker, we strongly recommend that you quit.If you are not a smoker, we strongly recommend that you do not start. Both of your eyes appear to be dry. Use artificial tears as directed. You can use the tears more often if you are reading a book or are on the computer,as we tend to blink less, making our eyes dry out more.[facility] offers a few items in our optical department to help alleviate dry eye symptoms.Follow up:as needed Functional Status Description No Information Available Mental Status Description No Information Available Referrals Description No Information Available
--- OUTSIDE RECORDS SUMMARY | 2019-06-10 19:10 | XMS REPORT | Summary of Care ---
:1955 Author Organization [facility] Address [address] [address] Care Team Providers Name Role Phone Peyman Giang MD Primary Care Provider Encounter Details Date Type Department Care Team Description 05/11/2019 Hospital Encounter [facility] Outpatient [address] [address] Allergies Active Allergy Reactions Severity Noted Date Comments Benzalk Cl-Ciprofloxacin Swelling 08/02/2018 Codeine Other 12/28/2007 Chest tightness. Propoxyphene Napsylate Rash 12/28/2007 Rash, throw up. Hydrocodone GI Reaction 12/28/2007 Throws up. 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/19/2017 Cervical radiculopathy 04/08/2017 Cervical radiculitis 03/31/2017 Rheumatoid arthritis 04/05/2011 Overview: Dr Rossy [place], [place] rheumatology Refused arava prescription (aortic stenosis) 04/04/2010 Bicuspid aortic valve 04/04/2010 TOBACCO USE 12/28/2007 Overview: 1 packs per day Began age 37 MELORHEOSTOSIS 12/28/2007 documented as of this encounter (statuses as of 05/13/2019) Resolved Problems Problem Noted Date Resolved Date [...] as of this encounter (statuses as of 05/13/2019) Immunizations Name Administration Dates Next Due Depo [...] of this encounter Last Filed Vital Signs Not on filedocumented in this encounter Plan of Treatment Date Type Specialty Care Team Description 05/23/2019 Office Visit Gastroenterology Valeria Wright, SERVICE STATION HELPER [address] [address] [phone] Health Maintenance Due Date Last Done Comments [...] Progress Work with your General No Rahat Leather Tacker MD Peyman Note: This is an individualized treatment (frequent ED use) goal for Little Rodriguez: Please work with your Leather Tacker, who will assist you in meeting your [...] ongoing basis. documented as of this encounter Procedures Procedure Name Priority Date/Time Associated Diagnosis Comments XR UPPER GI SERIES Routine 05/11/2019 8:40 AM Throat irritation Results for this WITH ESOPHAGUS W/ EDT Epigastric procedure are in KUB discomfort the results section. documented in this encounter Results XR UPPER GI SERIES WITH ESOPHAGUS W/ KUB (05/11/2019 8:40 AM EDT) Specimen Impressions Performed At Normal study. Signed by Lizbeth Rowe MD on 05/11/2019 11:39 AM Narrative Performed At Procedure(s): XR UPPER GI SERIES WITH ESOPHAGUS W/ KUB Date of service: 05/11/2019 7:58 AM Provided clinical information: 63 years, Female, "barium swallow, epigastric and throat irritation" TECHNIQUE: Double contrast. Fluoroscopy time 01:50 minutes. DAP 607.14 microGYm2 FINDINGS: No airway penetration or aspiration. Normal esophagus, stomach and duodenal bulb. No hiatal hernia. No episodes of gastroesophageal reflux during the examination. Procedure Note Interface, Rad Results - 05/11/2019 11:41 AM EDT Procedure(s): XR UPPER GI SERIES WITH ESOPHAGUS W/ KUB Date of service: 05/11/2019 7:58 AM Provided clinical information: 63 years, Female, "barium swallow, epigastric and throat irritation" TECHNIQUE: Double contrast. Fluoroscopy time 01:50 minutes. DAP 607.14 microGYm2 FINDINGS: No airway penetration or aspiration. Normal esophagus, stomach and duodenal bulb. No hiatal hernia. No episodes of gastroesophageal reflux during the examination. IMPRESSION Normal study. Signed by Lizbeth Rowe MD on 05/11/2019 11:39 AM documented in this encounter Visit Diagnoses Diagnosis Throat irritation Other diseases of pharynx, not elsewhere classified Epigastric discomfort Abdominal pain, epigastric documented in this encounter Insurance Payer Benefit Plan / Subscriber ID Effective Dates Phone Address Type Group UHC MEDICARE [employer] xxxxxxxxx 2016-Present UHC ADVANTAGE MEDICARE ADVANTAGE Guarantor Name Account Type Relation to Date of Phone Billing Patient Address Little Rodriguez Personal/Family [address] (Home) [place], [place] [phone] (Work) documented as of this encounter
--- OUTSIDE RECORDS SUMMARY | 2019-06-10 19:10 | XMS REPORT | Summary of Care ---
:1955 Author Organization [facility] Address [address] [facility] [address] [address] Care Team Providers Name Role Phone Peyman Giang Primary Care Provider Reason for Visit Reason Comments Other pt wants to discuss to stop smoking Cough pt presents for lingering cough Encounter Details Date Type Department Care Team Description 06/08/2019 Office Visit [facility] Peyman Giang MD Chest pain, unspecified type (Primary Dx); Practice [address] Acute bronchitis, unspecified organism; [address] [place] [address] [place] [address] [phone] Allergies Active Allergy Reactions Severity Noted Date Comments Benzalk Cl-Ciprofloxacin Swelling 08/02/2018 Codeine Other 12/28/2007 Chest tightness. Propoxyphene Napsylate Rash 12/28/2007 Rash, throw up. Hydrocodone GI Reaction 12/28/2007 Throws up. Metronidazole Swelling 08/02/2018 Orasone GI Reaction, Swelling 06/22/2010 Kdc:Yellow Dye+Diazepam LUBE ATTENDANT Reaction High 01/25/2013 Couldn't speak documented as of this encounter (statuses as of 06/08/2019) Medications Medication Sig Dispensed Refills Start Date End Date Status IBUPROFEN 200 PO Take by mouth 0 Active NEEDED. Polyethyl Place 2 Drops to 0 Active Glycol-Propyl the external eye Glycol (SYSTANE) THREE TIMES 0.4-0.3 % DAILY. Ophthalmic Solution atorvastatin Take 1 Tab by 90 Tab 1 04/22/2019 Active (LIPITOR) 10 MG mouth DAILY. Oral Tab Nicotine Take 1 Puff by 30 Each 0 06/08/2019 Active INHALATION 10 mg inhalation (NICOTROL) 10 MG DIRECTED. 1 Inhalation Inhaler inhaler daily as needed Benzonatate 200 MG Take 1 Cap by 42 Cap 0 06/08/2019 Active Oral Cap mouth EVERY EIGHT HOURS NEEDED (cough). Alum Hydroxide-Mag Take by mouth 0 Discontinued Carbonate EVERY BEDTIME. 9 (GAVISCON EXTRA RELIEF FORMULA PO) Calcium Carbonate Take 2 Tabs by 0 Discontinued Antacid (TUMS mouth DAILY. 9 CHEWY BITES) 750 MG Oral Chew Tab docusate sodium Take 50 mg by 0 Discontinued (COLACE) 50 MG mouth NEEDED. 9 Oral Cap documented as of this encounter (statuses as of 06/08/2019) Active Problems Problem Noted Date Rib pain 04/29/2018 Pure hypercholesterolemia 09/10/2017 Spondylosis without myelopathy or radiculopathy, lumbar region 08/19/2017 Cervical radiculopathy 04/08/2017 Cervical radiculitis 03/31/2017 Rheumatoid arthritis 04/05/2011 Overview: Dr Rossy [place], [place] rheumatology Refused arava prescription (aortic stenosis) 04/04/2010 Bicuspid aortic valve 04/04/2010 TOBACCO USE 12/28/2007 Overview: 1 packs per day Began age 37 MELORHEOSTOSIS 12/28/2007 documented as of this encounter (statuses as of 06/08/2019) Resolved Problems Problem Noted Date Resolved Date [...] as of this encounter (statuses as of 06/08/2019) Immunizations Name Administration Dates Next Due Depo Medrol (40mg) 01/10/2015 Influenza (IM) Preservative Free 09/16/2017, 05/29/2008 Influenza Vaccine Whole 06/14/2009, 06/28/2007 Influenza Virus Vaccine Pres Free 6-35 06/07/2012, 05/24/2011, 06/05/2010 Months TDAP Vaccine 06/10/2011 documented as of this encounter Social History Tobacco Use Types Packs/Day Years Used Date Current Some Day Smoker Cigarettes 1 31 Quit: 08/24/2011 Smokeless Tobacco: Never Used Tobacco Cessation: Ready to Quit: Yes; Counseling Given: Yes Alcohol Use Drinks/Week oz/Week Comments No 0 Standard drinks or equivalent 0.0 Sex Assigned at Date Recorded Not on file Job Start Date Occupation Industry Not on file Not on file Not on file Travel History Travel Start Travel End No recent travel history available. documented as of this encounter Last Filed Vital Signs Vital Sign Reading Time Taken Comments Blood Pressure 166/82 06/08/2019 1:21 PM EDT Pulse 77 06/08/2019 1:21 PM EDT Temperature 37.6 06/08/2019 1:21 PM EDT C (99.6 F) Respiratory Rate - - Oxygen Saturation 97% 06/08/2019 1:21 PM EDT Inhaled Oxygen Concentration - - Weight 55.8 kg (123 lb) 06/08/2019 1:21 PM EDT Height 162.6 cm (5' 4") 06/08/2019 1:21 PM EDT Body Mass Index 21.11 06/08/2019 1:21 PM EDT documented in this encounter Progress Notes Peyman Giang MD - 06/08/2019 1:00 PM EDT PATIENT: Little Rodriguez : 1955 DATE OF SERVICE: 06/08/2019 CHIEF COMPLAINT: Chief Complaint Patient presents with Other pt wants to discuss to stop smoking Cough pt presents for lingering cough Subjective HISTORY OF PRESENT ILLNESS: Little Rodriguez is a 63-y.o. female. Getting over URI head cold and stuffy , runny nose but now a cough, no fever, Not take cold meds . 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 Takes Gaviscon for occasional ST Said protonix and zantac not help. Never used inhalers. Still smokes She would like to quit. She did not do well with chantix She was smoking 1 ppd but she quickly cut back to 3 a day She does not even smoke the whole cigarette She lights it and then most of it just juarez Past Medical History: Diagnosis Date Allergic to latex Aortic stenosis bicuspid AV Arthritis Hemorrhoids 2017 10 year HISTORY OF Endocarditis 12/28/[address] MELORHEOSTOSIS 12/28/2007 Migraine ?? Other and unspecified hyperlipidemia Postmenopausal Rheumatoid arthritis(714.0) 12/28/2007 ?? TOBACCO USE 12/28/2007 Family History Problem Relation Age of Onset Arthritis Mother High Cholesterol Father Hypertension Father Colon Cancer Brother Current Outpatient Medications Medication Sig atorvastatin (LIPITOR) 10 MG Oral Tab Take 1 Tab by mouth DAILY. IBUPROFEN 200 PO Take by mouth NEEDED. Polyethyl Glycol-Propyl Glycol (SYSTANE) 0.4-0.3 % Ophthalmic Solution Place 2 Drops to the external eye THREE TIMES DAILY. No current facility-administered medications for this visit. Allergies Allergen Reactions Valium [Kdc:Yellow Dye+Diazepam] LUBE ATTENDANT Reaction Couldn't speak Ciprofloxacin Hcl [Benzalk Cl-Ciprofloxacin] [...] file Gets together: Not on file Attends spiritism service: Not on file Active member of [...] Narrative Not on file REVIEW OF SYSTEMS: ROS Objective PHYSICAL EXAM: VITALS: BP 166/82 (BP Location: Left arm, Patient Position: Sitting) | Pulse 77 | Temp 99.6 F(37.6 C) | Ht 5' 4" (1.626 m) | Wt 123 lb (55.8 kg) | LMP (LMP Unknown) | SpO2 97% | BMI 21.11 kg/m Body mass index is 21.11 kg/m. Physical Exam Vitals signs reviewed. Constitutional: General: She is not in acute distress. Appearance: She is not toxic-appearing. Comments: Coughs HENT: Ears: Comments: Ears - bilateral TM's and external ear canals normal, right external ear normal, left externalear normal Mouth/Throat: Pharynx: Oropharynx is clear. No oropharyngeal exudate. Cardiovascular: Rate and Rhythm: Normal rate and regular rhythm. Heart sounds: Murmur present. Pulmonary: Effort: Pulmonary effort is normal. No respiratory distress. Breath sounds: Normal breath sounds. No wheezing or rales. EKG no ischemia , CXR no pneumonia or much COPD my read ASSESSMENT / IMPRESSION: ICD-9-CM ICD-10-CM 1. Chest pain, unspecified type constant pain x 4 days with no ekg ischemia in setting of cough is likely bronchitis. 786.50 R07.9 AMBULATORY 12 LEAD EKG ( GLOBAL) XR CHEST 2 VIEW PA AND LATERAL (STANDARD) 2. Acute bronchitis, unspecified organism most bronchitis viral so hold on antibiotics and give tessalon Did hold on inhaler at this time 466.0 J20.9 3. TOBACCO USE Ready to quit: Yes Counseling given: Yes V15.82 Z87.891 Options discussed She used wellbutrin before and tolerated it. We also discussed nicotine replacement and she would like to try the nicitrol inhaler Plan Author: Peyman Giang MD 06/08/2019 13:27 documented in this encounter Plan of Treatment Name Type Priority Associated Diagnoses Date/Time XR CHEST 2 VIEW PA Imaging Routine Chest pain, unspecified 06/08/2019 2: 04 PM AND LATERAL type EDT (STANDARD) Name Type Priority Associated Diagnoses Order Schedule AMBULATORY 12 LEAD EKG EKG Routine Chest pain, unspecified Ordered: 2018 (GLOBAL) type XR CHEST 2 VIEW PA AND Imaging Routine Chest pain, unspecified Expected: , LATERAL (STANDARD) type Expires: 06/07/2020 Health Maintenance Due Date Last Done Comments [...] Progress Work with your General No Rahat International Guest Coordinator MD Peyman Note: This is an individualized treatment (frequent ED use) goal for Little Rodriguez: Please work with your International Guest Coordinator, who will assist you in meeting your goals of care. Regular appointments with primary care provider Yobani No Peyman Giang MD (PCP) Note: This [...] filedocumented in this encounter Visit Diagnoses Diagnosis Chest pain, unspecified type - Primary Acute bronchitis, unspecified organism TOBACCO USE Personal history of tobacco use, presenting hazards to health documented in this encounter Insurance Payer Benefit Plan / Subscriber ID Effective Dates Phone Address Type Group UHC MEDICARE [employer] xxxxxxxxx 2016-Present UHC ADVANTAGE MEDICARE ADVANTAGE Guarantor Name Account Type Relation to Date of Phone Billing Patient Address Little Rodriguez Personal/Family [address] (Home) [place], [place] [phone] (Work) documented as of this encounter
[2019-06-10 20:52] LABS: ABS Basophils 0.1 10^3/ul (0-0.2); ABS Eosinophils 0.1 10^3/ul (0-0.6); ABS Lymphocytes 2.5 10^3/ul (1.0-4.8); ABS Monocytes 0.6 10^3/ul (0-0.8); ABS Neutrophils 4.3 10^3/ul (1.5-7.7); Eosinophil % 1.9 %; Hematocrit 43 % (35-47); Hemoglobin 14.3 g/dL (12.0-16.0); Lymphocyte % 33.1 %; Mean Corpuscular HGB Conc 34 g/dL (31-36); Mean Corpuscular Hemoglobin 33 pg (27-31); Mean Corpuscular Volume 98 fL (80-97); Mean Platelet Volume 8.3 fL (7.4-10.4); Nucleated Red Blood Cells % 0.1; Platelet Count 319 10^3/uL (150-450); Red Blood Count 4.35 10^6 /uL (3.70-4.87); Red Cell Distribution Width 13 % (10-15); White Blood Count 7.6 10^3/uL (3.5-10.8)
[2019-06-10 21:08] LABS: INR 0.97 (0.82-1.09)
[2019-06-10 21:11] LABS: Albumin 5.1 g/dL (3.2-5.2); Albumin/Globulin Ratio 1.6 (1-3); BUN/Creatinine Ratio 14.4 (8-20); Calcium 10.3 mg/dL (8.6-10.3); EGFR African American 70.6 (>60); EGFR Non-African American 58.4 (>60); Globulin 3.2 g/dL (2-4); Total Bilirubin 0.4 mg/dL (0.2-1.0); Total Protein 8.3 g/dL (6.4-8.9)
[2019-06-10 21:14] LABS: Troponin I 0.01 ng/mL (<0.04)
--- NOTE | 2019-06-10 23:19 | ED ---
Hypertension - HPI Summary HPI Summary: This pt is a 63 Y/O F presenting to [facility] accompanied by her with a CC of a high blood pressure. Her PCP found that her blood pressure was high prior to her visit to [facility] [place] [facility] and stated that she should watch it. Today she noticed that her BP was 183/93 and attempted to contact her PCP who did not answer, prompting her visit to [facility]. She states that she has had echograms done in the past that have found no abnormalities. She denies any fevers, chills, SOB, headaches, dizziness, and N/V. She states that she has had recurrent CP but states that she has little to no pain currently. She has no aggravating or alleviating factors. 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 She has a FHx of HLD. - History of Current Complaint Chief Complaint: EDHypertension Stated Complaint: HIGH BLOOD PRESSURE PER PT Time Seen by Provider: 06/10/19 23:09 Hx Obtained From: Patient Onset/Duration: Still Present - Started [employer] Timing: Constant Reported Blood Pressure Prior To Arrival: 183/93 Aggravating Factor(s): Nothing Alleviating Factor(s): Nothing Associated Signs & Symptoms: Negative - fevers, chills, SOB, headaches, dizziness, and N/V Related Hx: Similar Episode - Allergies/Home Medications Allergies/Adverse Reactions: Allergies Allergy/AdvReac Type Severity Reaction Status Date / Time ciprofloxacin Allergy Severe GI Upset Verified 06/10/19 19:02 codeine Allergy Rash Verified 06/10/19 19:02 diazepam [From Valium] Allergy Slurred Verified 06/10/19 19:02 Speech prednisone Allergy Anaphylatic Verified 06/10/19 19:02 Shock propoxyphene [From Darvon] Allergy Altered Verified 06/10/19 19:02 Mental Status PMH/Surg Hx/FS Hx/Imm Hx Previously Healthy: Yes Endocrine/Hematology History: Reports: Other Endocrine/Hematological Disorders - HLD Denies: Hx Anticoagulant Therapy, Hx Blood Disorders, Hx Diabetes, Hx Thyroid Disease, Hx Anemia, Hx Unexplained Bleeding Cardiovascular History: Reports: Hx Hypercholesterolemia, Hx Hypertension, 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, Other Cardiovascular Problems/Disorders - Endocarditis as a teenager GI History: Denies: Hx Cirrhosis, Hx Crohn's Disease, Hx Diverticulosis, Hx Gall Bladder Disease, Hx Gastroesophageal Reflux Disease, Hx Gastrointestinal Bleed, Hx Hiatal Hernia, Hx Irritable Bowel, Hx Obstructive Bowel, Hx Ileostomy, Hx Pyloric Stenosis, Hx Ulcer, Hx Urosepsis History: Denies: Hx Renal Disease Musculoskeletal History: Reports: Hx Rheumatoid Arthritis - Surgical History Surgical History: Yes Surgery Procedure, Year, and Place: Hysterectomy in 1921 when patient was 25 y/o - Immunization History Date of Influenza Vaccine: has not received Infectious Disease History: No Infectious Disease History: Denies: Traveled Outside the [place] in Last 30 Days - Family History Known Family History: Positive: Hypertension, Other - HLD Negative: Cardiac Disease - No HI - Social History Occupation: Retired Lives: With Family Alcohol Use: None Hx Substance Use: No Substance Use Type: Reports: None Hx Tobacco Use: Yes - cutting back/trying to quit Smoking Status (MU): Current Every Day Smoker Amount Used/How Often: 4 cigarettes per day Household Exposure: No Review of Systems Constitutional: Negative - dizziness Negative: Fever, Chills Negative: Shortness Of Breath Negative: Vomiting, Nausea Negative: Headache All Other Systems Reviewed And Are Negative: Yes Physical Exam - Summary Physical Exam Summary: Appearance: Well-appearing, Well-nourished, lying in bed comfortably Skin: Warm, dry, no obvious rash Eyes: sclera anicteric, no conjunctival pallor ENT: mucous membranes moist, pharynx appears normal Neck: Supple, nontender Respiratory: Clear to auscultation, no signs of respiratory distress Cardiovascular: Normal S1, S2. No murmurs. Normal distal pulses in tibial and radial bilaterally. Abdomen: Soft, nontender, normal active bowel sounds present Musculoskeletal: Normal, Strength/ROM Intact Neurological: A&Ox3, awake and alert, mentation is normal, speech is fluent and appropriate Psychiatric: affect is normal, does not appear anxious or depressed Triage Information Reviewed: Yes Vital Signs On Initial Exam: Initial Vitals Temp Pulse Resp BP Pulse Ox 96.8 F 88 16 132/98 97 06/10/19 18:58 06/10/19 18:58 06/10/19 18:58 06/10/19 18:58 06/10/19 18:58 Vital Signs Reviewed: Yes Procedures - Sedation Patient Received Moderate/Deep Sedation with Procedure: No Diagnostics - Vital Signs Vital Signs Temp Pulse Resp BP Pulse Ox 06/10/19 21:09 98.6 F 84 18 134/80 96 06/10/19 18:58 96.8 F 88 16 132/98 97 - Laboratory Lab Results: Lab Results 06/10/19 06/10/19 06/10/19 Range/Units 20:35 20:35 20:35 WBC 7.6 (3.5-10.8) 10^3/uL RBC 4.35 (3.70-4.87) 10^6 /uL Hgb 14.3 (12.0-16.0) g/dL Hct 43 (35-47) % MCV 98 H (80-97) fL MCH 33 H (27-31) pg MCHC 34 (31-36) g/dL RDW 13 (10-15) % Plt Count 319 (150-450) 10^3/uL MPV 8.3 (7.4-10.4) fL Neut % (Auto) 56.7 % Lymph % (Auto) 33.1 % [place] % (Auto) 7.2 % Eos % (Auto) 1.9 % Baso % (Auto) 1.1 % Absolute Neuts (auto) 4.3 (1.5-7.7) 10^3/ul Absolute Lymphs (auto) 2.5 (1.0-4.8) 10^3/ul Absolute Monos (auto) 0.6 (0-0.8) 10^3/ul Absolute Eos (auto) 0.1 (0-0.6) 10^3/ul Absolute Basos (auto) 0.1 (0-0.2) 10^3/ul Absolute Nucleated RBC 0.0 10^3/ul Nucleated RBC % 0.1 INR (Anticoag Therapy) 0.97 (0.82-1.09) Sodium 139 (135-145) mmol/L Potassium 4.0 (3.5-5.0) mmol/L Chloride 101 (101-111) mmol/L Carbon Dioxide 28 (22-32) mmol/L Anion Gap 10 (2-11) mmol/L BUN 14 (6-24) mg/dL Creatinine 0.97 H (0.51-0.95) mg/dL Est GFR ( Amer) 70.6 (>60) Est GFR (Non-Af Amer) 58.4 (>60) BUN/Creatinine Ratio 14.4 (8-20) Glucose 114 H (70-100) mg/dL Calcium 10.3 (8.6-10.3) mg/dL Total Bilirubin 0.40 (0.2-1.0) mg/dL AST 25 (13-39) U/L ALT 22 (7-52) U/L Alkaline Phosphatase 50 (34-104) U/L Troponin I 0.01 (<0.04) ng/mL Total Protein 8.3 (6.4-8.9) g/dL Albumin 5.1 (3.2-5.2) g/dL Globulin 3.2 (2-4) g/dL Albumin/Globulin Ratio 1.6 (1-3) Result Diagrams: 06/10/19 20:35 06/10/19 20:35 Lab Statement: Any lab studies that have been ordered have been reviewed, and results considered in the medical decision making process. - EKG 2143 Cardiac Rate: NL - 76 BPM EKG Rhythm: Sinus Rhythm ST Segment: Normal Ectopy: None Summary of EKG Findings: NSR at 76 BPM with borderline left ventricular hypertrophy. Interpreted by Dr. Jonas at 2149 and re-interpreted by Dr. Parmar at 232306/10/19. Hypertension Course/Dx - Course Course Of Treatment: This pt is a 63 Y/O F presenting to [facility] accompanied by her with a CC of a high blood pressure. Her PCP found that her blood pressure was high prior to her visit to [facility] [facility] and stated that she should watch it. Today she noticed that her BP was 183/93 and attempted to contact her PCP who did not answer, prompting her visit to [facility]. She states that she has had echograms done in the past that have found no abnormalities. She denies any fevers, chills, SOB, headaches, dizziness, and N/V. Her PE found no acute abnormalities. She has no abnormailites in her labratory results that are pertinent to this visit. Her EKG taken at 2143 found that she had NSR at 76 BPM with borderline left ventricular hypertrophy. She will be discharged home with a Dx of HTN. - Diagnoses Provider Diagnoses: HTN (hypertension) Discharge ED - Sign-Out/Discharge Documenting (check all that apply): Patient Departure - discharge - Discharge Plan Condition: Good Disposition: HOME Patient Education Materials: Hypertension (ED) Referrals: Peyman Giang MD [Primary Care Provider] - - Billing Disposition and Condition Condition: GOOD Disposition: Home - Attestation Statements Document Initiated by Juan Carlos: Yes Documenting Scribe: Louie Armenta Provider For Whom Juan Carlos is Documenting (Include Credential): Shankar Parmar MD Scribe Attestation: Louie Fischer, scribed for Shankar Parmar MD on 06/11/19 at 2115. Scribe Documentation Reviewed: Yes Provider Attestation: The documentation as recorded by the Louie will accurately reflects the service I personally performed and the decisions made by me, Shankar Parmar MD Status of Scribe Document: Viewed
[2019-06-10 23:40] VITALS: BP 151/88
== END 2019-06-10 23:39 | disposition home or self-care (01) ==
LOC: ED 18:56
DX: I10 Essential (primary) hypertension (principal); I51.7 Cardiomegaly; M06.9 Rheumatoid arthritis, unspecified; Z88.1 Allergy status to other antibiotic agents; Z88.5 Allergy status to narcotic agent; Z88.8 Allergy status to other drugs, medicaments and biological substances; F17.210 Nicotine dependence, cigarettes, uncomplicated
CPT/HCPCS: 36415; 80053; 84484; 85025; 85610; 93005; 99282

== ENCOUNTER 2024-03-01 16:22 | Observation (INO) ==
[2024-03-01 17:20] LABS: ABS Basophils 0.1 10^3/uL (0.0-0.1); ABS Eosinophils 0.2 10^3/uL (0.0-0.5); ABS Lymphocytes 1.7 10^3/uL (1.0-4.8); ABS Monocytes 0.4 10^3/uL (0.0-0.9); ABS Neutrophils 4.6 10^3/uL (1.5-7.6); Eosinophil % 2.5 %; Hematocrit 41.2 % (35-45); Hemoglobin 13.7 g/dL (11.5-14.3); Lymphocyte % 24.2 %; Mean Corpuscular Hemoglobin 33.2 pg (27-33); Mean Corpuscular Hgb Conc 33.2 g/dL (31-36); Platelet Count 302 10^3/uL (150-450); Red Blood Count 4.12 10^6/uL (3.63-4.92); Red Cell Distribution Width 13.1 % (12-17)
[2024-03-01 17:26] LABS: INR 0.94 (0.83-1.13)
[2024-03-01 18:09] LABS: Albumin 5.1 g/dL (3.2-5.2); Albumin/Globulin Ratio 1.8 (1-3); Calcium 9.9 mg/dL (8.6-10.3); Creatinine, Serum 0.87 mg/dL (0.51-0.95); Globulin 2.8 g/dL (2-4); Potassium 4.3 mmol/L (3.5-5.0); Total Bilirubin 0.5 mg/dL (0.2-1.0); Total Protein 7.9 g/dL (6.4-8.9); eGFR CKD-EPI 73.4 (>60)
[2024-03-01 18:47] LABS: High Sensitivity Troponin 1 Hr 10 pg/mL (<15)
[2024-03-01] MEDS: Iohexol 350 (CONTRAST) 500 ML MDV IV ONE (20:42)
[2024-03-02] MEDS ORDERED: Al Hydrox/Mg Hydrox/Simet LIQ 30 ML UDC PO PRN (00:05)
[2024-03-02] MEDS: Enoxaparin 40 MG/0.4 ML SYR SUBCUT SCH (00:27)
[2024-03-02] MEDS: NS 0.9% 1000 ml BAG 1,000 ML IV SCH (03:14)
[2024-03-02] MEDS ORDERED: Aminophylline 25 MG/ML VIAL ONE (12:54)
[2024-03-02] MEDS ORDERED: Regadenoson 0.4 MG/5 ML SYRINGE ONE (12:54)
[2024-03-02 15:48] VITALS: BP 130/70
== END 2024-03-02 15:48 | disposition home or self-care (01) ==
LOC: ED 16:22 → EDHOLD 16:22 → SUATTDRO 03-02 00:05 → EDHOLD 03-02 15:47
PROVIDERS: ADMIT Internal Medicine; ATTEND Student in an Organized Health Care Education/Training Program